=== PATIENT | female | born 1935 | race Caucasian/White ===

== ENCOUNTER → 2017-12-07 10:26 | Outpatient (CLI) | payer MEDICARE, SELFPAY ==
--- NOTE | 2017-12-07 10:29 | BI_ITS ---
MAMMOGRAPHY - BILATERAL SCREENING REASON FOR EXAM: Female, 82 years old. Routine annual screening examination. PERTINENT HISTORY: NO FAM HX CURRENT PREMARIN X 10 YRS+ NO SX TECHNIQUE: Digital bilateral breast reggie (3D mammographic acquisition) in the CC and MLO projections. 2-D mediolateral oblique (MLO) and craniocaudad (CC) views of both breasts were obtained. CAD: Full Field Digital Mammography with Computer Added Detection was performed. COMPARISON: None. FINDINGS: Breast Composition: There are scattered areas of fibroglandular density. There are no dominant masses or suspicious calcifications. No other significant abnormalities are identified. BI/SCREENING MAMM (CAD), BILAT IMPRESSION: Stable bilateral screening mammogram. Yearly follow-up mammogram recommended. (A) ASSESSMENT CATEGORY: BIRADS Category 2: Benign. A letter regarding these results will be sent to the patient by the facility within 30 days. Approximately 10% of breast cancers are not detected by mammography. A normal mammogram should not delay biopsy of a clinically suspicious abnormality. [id number] Electronically Signed: Madelaine Colin MD at 16:20 EDT Tel , Service support ,
== END ==
PROVIDERS: Family Provider Family Medicine; PCP Family Medicine; Visit Provider Family Medicine
DX: Z12.31 Encounter for screening mammogram for malignant neoplasm of breast (principal)
CPT/HCPCS: 77063; 77067

== ENCOUNTER → 2018-04-07 10:12 | Outpatient (CLI) | payer MEDICARE, SELFPAY ==
[2018-04-07 12:18] LABS: AST(SGOT) 627 U/L (15-37); Alanine Aminotransfer ALT/SGPT 724 U/L (13-56); Albumin, Serum 3.4 g/dL (3.2-5.0); Alkaline Phosphatase 247 U/L (45-117); Anion Gap 8 (5-15); BUN 23 mg/dL (7-18); BUN/Creat Ratio 25.6 RATIO (10-20); Basophil# 0.04 X10^3/uL; Basophil% 0.9 % (0-1); Calcium,Total 8.8 mg/dL (8.5-10.1); Chloride 106 mmol/L (98-107); EST Glomerular Filtration Rate 64 mL/min (>60); Eosinophil# 0.15 X10^3/uL; Eosinophils% 3.2 % (0-5); Est Glom Filt Rate - Afr Amer 78 mL/min (>60); Globulin 3.4 g/dL (2.2-4.2); Glucose 113 mg/dL (74-106); Hematocrit 39.6 % (37-47); Hemoglobin 13.1 g/dl (12.0-15.0); Lymphocyte % 38.7 % (19-41); Mean Corp Hgb Conc 33.1 g/gl (32-36); Mean Corpuscular Hgb 32.8 pg (27.0-32.0); Mean Platelet Vol. 10.3 fl (6.2-12.0); Monocyte# 0.66 X10^3/uL; Monocyte% 14.2 % (0-10); Platelet Count 191 K/mm3 (150-450); Potassium 3.7 mmol/L (3.5-5.1); Protein, Total 6.8 g/dL (6.4-8.2); RBC Distribution Width CV 13.3 % (11.6-14.6); Sodium Level 141 mmol/L (136-145); White Blood Count 4.7 K/mm3 (4.4-11.0)
[2018-04-07 12:20] LABS: POSITIVE COUNT NO; POSITIVE DIFFERENTIAL NO; POSITIVE MORPHOLOGY NO
[2018-04-07 12:31] LABS: International Normalized Ratio 1.1; Prothrombin Time (Protime)PT. 13.8 SECONDS (11.7-14.9)
[2018-04-11 13:20] LABS: ANTINUCLEAR ANTIBODIES DIRECT Negative (Negative)
== END ==
PROVIDERS: Family Provider Family Medicine; PCP Family Medicine; Visit Provider Family Medicine
DX: R74.8 Abnormal levels of other serum enzymes (principal); R10.9 Unspecified abdominal pain
CPT/HCPCS: 36415; 80053; 85025; 85610; 86038; 86225; 86235

== ENCOUNTER → 2018-04-14 10:58 | Outpatient (CLI) | payer MEDICARE, SELFPAY ==
[2018-04-14 14:08] LABS: AST(SGOT) 403 U/L (15-37); Alanine Aminotransfer ALT/SGPT 560 U/L (13-56); Albumin, Serum 3.3 g/dL (3.2-5.0); Alkaline Phosphatase 287 U/L (45-117); Anion Gap 8 (5-15); BUN 17 mg/dL (7-18); BUN/Creat Ratio 20.8 RATIO (10-20); Calcium,Total 8.9 mg/dL (8.5-10.1); Chloride 105 mmol/L (98-107); Creatinine, Serum 0.82 mg/dL (0.55-1.02); EST Glomerular Filtration Rate 71 mL/min (>60); Est Glom Filt Rate - Afr Amer 86 mL/min (>60); GGTP 538 U/L (5-55); Globulin 3.4 g/dL (2.2-4.2); Glucose 121 mg/dL (74-106); Lipase 153 U/L (73-393); Potassium 3.9 mmol/L (3.5-5.1); Protein, Total 6.7 g/dL (6.4-8.2); Sodium Level 143 mmol/L (136-145)
== END ==
PROVIDERS: Visit Provider Family Medicine
DX: R94.5 Abnormal results of liver function studies (principal); R10.9 Unspecified abdominal pain
CPT/HCPCS: 36415; 80053; 82977; 83690

== ENCOUNTER → 2018-04-19 09:28 | Outpatient (CLI) | payer MEDICARE, SELFPAY ==
--- NOTE | 2018-04-19 09:39 | US_ITS ---
STUDY: ABDOMINAL ULTRASOUND - RIGHT UPPER QUADRANT REASON FOR VISIT: Female, 82 years old. Elevated LFTs TECHNIQUE: Ultrasound evaluation of the right upper quadrant was performed with real-time and static kimball-scale imaging. TECHNICAL QUALITY: Limited. Examination limited by bowel gas. COMPARISON: None. FINDINGS: Liver: The liver measures 12.6 cm. There is normal echogenicity of the liver. The bile ducts are within normal limits. There is hepatic color flow. The direction of portal flow is hepatopetal. There is no demonstrated mass lesion. Gallbladder: Normal distended gallbladder. The gallbladder wall measures 2.6 mm. There is a negative sonographic Ortiz's sign. There is no pericholecystic fluid. There is biliary sludge dependent within the gallbladder. Common Bile Duct (C.B.D.): The common bile duct measures 3.7 mm. Pancreas: Visualized pancreas is sonographically normal Right Kidney: Normal size of the right kidney. The right kidney measures 8.8 x 4.8 x 3.5 cm. Normal renal cortex. The right cortex measures 1.2 cm. There is a 8 mm simple cyst. There is no right hydronephrosis. US/Liver IMPRESSION: Gallbladder sludge, no sonographic evidence of cholecystitis. Simple right renal cyst Sonographically normal liver Electronically Signed: Edmundo Kenney MD at 16:49 EDT , Service support ,
== END ==
PROVIDERS: Family Provider Family Medicine; PCP Family Medicine; Visit Provider Family Medicine
DX: R10.9 Unspecified abdominal pain (principal); R94.5 Abnormal results of liver function studies
CPT/HCPCS: 76705

== ENCOUNTER → 2018-04-27 10:42 | Outpatient (CLI) | payer MEDICARE, SELFPAY ==
[2018-04-27 12:25] LABS: ALB/GLOB Ratio 0.9 RATIO (0.9-2.4); AST(SGOT) 47 U/L (15-37); Alanine Aminotransfer ALT/SGPT 77 U/L (13-56); Albumin, Serum 3.3 g/dL (3.2-5.0); Alkaline Phosphatase 176 U/L (45-117); Anion Gap 8 (5-15); BUN 21 mg/dL (7-18); BUN/Creat Ratio 22.6 RATIO (10-20); Calcium,Total 8.9 mg/dL (8.5-10.1); Chloride 104 mmol/L (98-107); Creatinine, Serum 0.93 mg/dL (0.55-1.02); EST Glomerular Filtration Rate 62 mL/min (>60); Est Glom Filt Rate - Afr Amer 74 mL/min (>60); Globulin 3.7 g/dL (2.2-4.2); Glucose 139 mg/dL (74-106); Potassium 3.8 mmol/L (3.5-5.1); Sodium Level 141 mmol/L (136-145)
== END ==
PROVIDERS: Family Provider Family Medicine; PCP Family Medicine; Visit Provider Family Medicine
DX: R74.8 Abnormal levels of other serum enzymes (principal); R94.5 Abnormal results of liver function studies
CPT/HCPCS: 36415; 80053

== ENCOUNTER → 2018-05-05 08:28 | Outpatient (CLI) | payer MEDICARE, SELFPAY ==
[2018-05-05 10:29] LABS: Cholesterol 248 mg/dL (200); Ferritin 75 ng/mL (8-252); High Density Lipoprotein 47 mg/dL; T4 Total, Thyroxin 12.5 ug/dL (4.8-13.9); Thyroid Stim Hormone (TSH) 1.56 uIU/mL (0.358-3.74); Triglycerides 103 mg/dL; Very Low Density Lipoprotein 21 mg/dL (5-40)
[2018-05-06 16:08] LABS: Ceruloplasmin 24.8 mg/dL (19.0-39.0)
[2018-05-07 07:50] LABS: AFP, Tumor Marker 4.5 ng/mL (0.0-8.3); Alpha Antitrypsin Serum 157 mg/dL (90-200); Anti-Mitochondrial AB <20.0 Units (0.0-20.0); Anti-Smooth Muscle ABS 27 Units (0-19); EBV Acute VCA IgM < 36.0 U/mL (0.0-35.9); Hep C Antibodies <0.1 s/co ratio (0.0-0.9); Immunoglobulin A 346 mg/dL (64-422); t-Transglutaminase IgA <2 U/mL (0-3)
== END ==
PROVIDERS: Family Provider Family Medicine; PCP Family Medicine
DX: R74.0 Nonspecific elevation of levels of transaminase and lactic acid dehydrogenase [LDH] (principal); R74.8 Abnormal levels of other serum enzymes; I48.91 Unspecified atrial fibrillation; E78.2 Mixed hyperlipidemia
CPT/HCPCS: 36415; 80061; 82103; 82105; 82390; 82728; 82784; 83516; 84436; 84443; 86665; 86803

== ENCOUNTER → 2018-05-12 10:44 | Outpatient (CLI) | payer MEDICARE, SELFPAY ==
[2018-05-12 12:58] LABS: AST(SGOT) 28 U/L (15-37); Alanine Aminotransfer ALT/SGPT 25 U/L (13-56); Albumin, Serum 3.1 g/dL (3.2-5.0); Alkaline Phosphatase 115 U/L (45-117); Globulin 3.5 g/dL (2.2-4.2); Protein, Total 6.6 g/dL (6.4-8.2)
== END ==
PROVIDERS: Family Provider Family Medicine; PCP Family Medicine
DX: R74.8 Abnormal levels of other serum enzymes (principal)
CPT/HCPCS: 80076

== ENCOUNTER → 2018-09-15 12:35 | Outpatient (CLI) | payer MEDICARE, SELFPAY ==
[2018-09-15 12:18] VITALS: BMI 28.2
--- NOTE | 2018-09-15 12:41 | RAD_ITS ---
STUDY: X-RAY CHEST REASON FOR EXAM: Female, 83 years old. Cough. TECHNIQUE: PA and lateral views of the chest. COMPARISON: Comparison is made with prior study dated April 24, 2014. FINDINGS: The lungs are clear and expanded. There is no demonstrated pleural abnormality. There is calcification of the mitral valve annulus. Normal mediastinum and henrique. Normal visualized pulmonary arteries. There is atherosclerotic calcification of the aortic arch with tortuosity. There is demineralization of the osseous structures. Healed right rib fractures. There is no demonstrated abnormality of the visualized soft tissue structures of the upper abdomen. RAD/Chest PA and Lateral IMPRESSION: No acute abnormality is seen. Electronically Signed: Solo Wilburn MD at 13:09 EST , Service support ,
== END ==
PROVIDERS: Family Provider Family Medicine; PCP Family Medicine; Referring Provider Physician Assistant; Visit Provider Physician Assistant
DX: R05 Cough (principal)
CPT/HCPCS: 71046

== ENCOUNTER → 2018-11-30 10:04 | Outpatient (CLI) | payer MEDICARE, SELFPAY ==
[2018-11-29 13:32] VITALS: BMI 29.8
[2018-11-30 10:55] LABS: AST(SGOT) 22 U/L (15-37); Alanine Aminotransfer ALT/SGPT 20 U/L (13-56); Albumin, Serum 3.7 g/dL (3.2-5.0); Alkaline Phosphatase 87 U/L (45-117); Bilirubin, Direct 0.13 mg/dL (0.00-0.30); Cholesterol 263 mg/dL (200); Globulin 3.6 g/dL (2.2-4.2); High Density Lipoprotein 45 mg/dL; Protein, Total 7.3 g/dL (6.4-8.2); Triglycerides 180 mg/dL; Very Low Density Lipoprotein 36 mg/dL (5-40)
== END ==
PROVIDERS: Family Provider Family Medicine; PCP Family Medicine; Referring Provider Internal Medicine Cardiovascular Disease; Visit Provider Internal Medicine Cardiovascular Disease
DX: I25.10 Atherosclerotic heart disease of native coronary artery without angina pectoris (principal)
CPT/HCPCS: 36415; 80061; 80076

== ENCOUNTER → 2018-12-14 13:35 | Outpatient (CLI) | payer MEDICARE, SELFPAY ==
[2018-11-29 13:32] VITALS: BMI 29.8
--- NOTE | 2018-12-14 13:37 | ECHOCS_ITS ---
Reason For Study: CAD/ASHD Procedure This was a 2D Doppler, Color Flow transthoracic echocardiogram. Contrast injection was performed. Exam performed in department. Left Ventricle Normal size and thickness. The estimated ejection fraction is 75 %. Stage 1 diastolic dysfunction. No regional wall motion abnormalities noted. Right Ventricle Normal size and thickness. Normal systolic function. Atria The left atrium is moderately enlarged. Normal right atrium. Normal atrial septum. Bubble contrast study negative for right to left interatrial shunt. Mitral Valve Mild diffuse mitral valve thickening. Severe mitral annular calcification extending into the posterior leaflet. Mild mitral valve stenosis. Trivial mitral valve insufficiency. Tricuspid Valve Normal tricuspid valve. Mild (1+) tricuspid valve insufficiency. Right ventricular systolic pressure estimated to be 37 mmHg. Mild pulmonary hypertension. Aortic Valve Trisinus/trileaflet aortic valve. Moderate diffuse aortic valve thickening. Mild restriction of the aortic valve. Mild aortic stenosis. Trivial aortic valve insufficiency. Pulmonic Valve Normal pulmonic valve. Trivial pulmonic valve insufficiency. Great Vessels Normal aortic root. Normal arch. Normal inferior vena cava. Inferior vena cava collapse with sniff. Pericardium/Pleural No pericardial effusion. Medication 22 gauge I.V. with prn adaptor inserted into right arm. Diluted definity 3ml given slow IV push to enhance endocardial definition. Performed a rapid injection of agitated mix of 9 cc saline and 1cc air to assess for atrial septal defect. MMode/2D Measurements & Calculations LVIDd: 4.1 cm IVSd: 1.0 cm LVOT diam: 2.0 cm LVIDs: 2.9 cm LVPWd: 1.1 cm RVDd: 3.5 cm FS: 29.3 % LVOT area: 3.2 cm2 LAV(MOD-bp): 76.5 ml LVAd ap4: 29.8 cm2 SV(MOD-sp4): 55.2 ml LAV(MOD-bp) Indexed: 39.6 ml/m2 EDV(MOD-sp4): 93.7 ml LAV(MOD-sp2): 74.5 ml EDV(sp4-el): 96.7 ml LAV(MOD-sp4): 79.3 ml LVAs ap4: 17.0 cm2 ESV(MOD-sp4): 38.6 ml ESV(sp4-el): 38.0 ml EF(MOD-sp4): 58.9 % EF(sp4-el): 60.7 % SV(sp4-el): 58.7 ml LA A4 area: 24.1 cm2 RA A4 area: 13.3 cm2 Time Measurements MV dec time: 0.27 sec Doppler Measurements & Calculations MV E max vinicius: 110.5 cm/sec Lat Peak E' Vinicius: 7.4 cm/sec Med Peak E' Vinicius: 3.5 cm/sec MV A max vinicius: 108.4 cm/sec E/E' lat: 14.9 E/E' med: 31.7 MV E/A: 1.0 MV V2 max: 124.1 cm/sec MV P1/2t max vinicius: 115.6 cm/sec Ao V2 max: 193.0 cm/sec MV max P.2 mmHg MV P1/2t: 94.7 msec Ao max P.9 mmHg MV V2 mean: 77.1 cm/sec Ao V2 mean: 129.7 cm/sec MV mean P.7 mmHg MV dec slope: 357.3 cm/sec2 Ao mean P.6 mmHg MV V2 VTI: 36.9 cm MVA(P1/2t): 2.3 cm2 Ao V2 VTI: 42.3 cm MVA(VTI): 1.9 cm2 SHAI(I,D): 1.7 cm2 SHAI(V,D): 1.7 cm2 AI max vinicius: 437.9 cm/sec LV V1 max: 100.5 cm/sec SV(LVOT): 70.2 ml AI max P.8 mmHg LV V1 max P.0 mmHg AI dec slope: 241.7 cm/sec2 LV V1 mean P.9 mmHg AI P1/2t: 530.7 msec LV V1 mean: 63.1 cm/sec LV V1 VTI: 22.1 cm PA V2 max: 117.7 cm/sec TR max vinicius: 280.4 cm/sec TR max P.5 mmHg Interpretation Summary The estimated ejection fraction is 75 %. Stage 1 diastolic dysfunction. The left atrium is moderately enlarged. Bubble contrast study negative for right to left interatrial shunt. Mild mitral valve stenosis. Mild (1+) tricuspid valve insufficiency. Right ventricular systolic pressure estimated to be 37 mmHg. Mild pulmonary hypertension. Mild aortic stenosis. The study was technically difficult. There is no comparison study available. Contrast injection was performed. Ordering Physician: Keyon Jama Referring Physician: Keyon Jama Performed By: [facility]
== END ==
PROVIDERS: Family Provider Family Medicine; PCP Family Medicine; Referring Provider Internal Medicine Cardiovascular Disease; Visit Provider Internal Medicine Cardiovascular Disease
DX: I48.0 Paroxysmal atrial fibrillation (principal)
CPT/HCPCS: 93306; Q9957; A4216; C8929

== ENCOUNTER → 2018-12-21 09:15 | Outpatient (CLI) | payer MEDICARE, SELFPAY ==
[2018-11-29 13:32] VITALS: BMI 29.8
--- NOTE | 2018-12-21 09:20 | STEWCON_ITS ---
Reason For Study: ATRIAL FIB/FLUTTER Stress Results Protocol: Dobutamine with definity Maximum Predicted HR: 139 bpm Target HR: 118 bpm % Maximum Predicted HR: 86 % Heart Stage Duration Rate BP Comment (mm:ss) (bpm) 2.5CC DEFINITY/ 0.4 MG NITRO X1 GIVEN FOR ELEVATED BP BASELINE 81 177/88(205/104) . RECHECK BP OF 177/88 DOBUTAMINE 10 MCG 3:00 73 173/991.5CC DEFINITY DOBUTAMINE 20 MCG 3:00 84 162/72 DOBUTAMINE 30 MCG 3:00 107 178/66 DOBUTAMINE 40 MCG 2:28 120 160/74 RECOVERY 90 171/741CC DEFINITY Stress Duration: 11:28 mm:ss Maximum Stress HR: 120 bpm Baseline Echocardiogram Findings The estimated ejection fraction is 65 %. Stress Echo Wall motion Data Resting WM Intermediate WM Stress WM Resting Wall Motion Wall Motion Stress No regional wall motion No regional wall motion abnormalities noted. abnormalities noted. EKG Data Normal intervals are noted. The patient was titrated from 10 mcg to a maximum of 40 mcg of dobutamine during the stress. The maximum heart rate attained was 122 beats per minute. This was 87% of maximum predicted heart rate. During dobutamine infusion, there were no ST or T wave changes noted to suggest ischemia. No clinical angina was noted. Interpretation Summary The estimated ejection fraction is 65 %. Normal, adequate, dobutamine echocardiogram. Negative for ischemia by EKG and echocardiographic criteria. No anginal symptoms noted. Moderate PVCs noted which is nonspecific finding given dobutamine infusion. Appropriate blood pressure response to dobutamine. Patient did present severely hypertensive with a blood pressure of 202/82 requiring a single sublingual nitroglycerin which returned her blood pressure into the 170s. Final LVEF is 75%. Decreased sensitivity due to poor echo windows requiring Definity agent. No complications. Test terminated due to the attainment of target heart rate. The study was technically difficult. Contrast injection was performed. Ordering Physician: Keyon Jama Referring Physician: Keyon Jama Performed By: Stephanie Marie RDCS
== END ==
PROVIDERS: Family Provider Family Medicine; PCP Family Medicine; Referring Provider Internal Medicine Cardiovascular Disease; Visit Provider Internal Medicine Cardiovascular Disease
DX: I48.0 Paroxysmal atrial fibrillation (principal); I25.10 Atherosclerotic heart disease of native coronary artery without angina pectoris; E78.5 Hyperlipidemia, unspecified; Z86.79 Personal history of other diseases of the circulatory system; Z98.890 Other specified postprocedural states
CPT/HCPCS: 93017; 93350; J7040; Q9957; A4216; C8928

== ENCOUNTER → 2019-04-17 09:16 | Outpatient (CLI) | payer MEDICARE, SELFPAY ==
[2019-04-14 11:12] VITALS: BMI 29.3
[2019-04-17 10:27] LABS: Anion Gap 6 (5-15); BUN 25 mg/dL (7-18); Calcium,Total 9.2 mg/dL (8.5-10.1); Chloride 108 mmol/L (98-107); Creatinine, Serum 0.89 mg/dL (0.55-1.02); EST Glomerular Filtration Rate 64 mL/min (>60); Est Glom Filt Rate - Afr Amer 78 mL/min (>60); Glucose 103 mg/dL (74-106); Potassium 4.2 mmol/L (3.5-5.1); Sodium Level 142 mmol/L (136-145)
== END ==
PROVIDERS: Family Provider Family Medicine; PCP Family Medicine; Referring Provider Internal Medicine Cardiovascular Disease; Visit Provider Internal Medicine Cardiovascular Disease
DX: I10 Essential (primary) hypertension (principal)
CPT/HCPCS: 36415; 80048

== ENCOUNTER → 2019-06-01 09:39 | Outpatient (CLI) | payer MEDICARE, SELFPAY ==
[2019-04-14 11:12] VITALS: BMI 29.3
[2019-06-01 11:07] LABS: AST(SGOT) 20 U/L (15-37); Alanine Aminotransfer ALT/SGPT 19 U/L (13-56); Alkaline Phosphatase 91 U/L (45-117); Bilirubin, Direct 0.15 mg/dL (0.00-0.30); Cholesterol 217 mg/dL (200); Globulin 3.7 g/dL (2.2-4.2); High Density Lipoprotein 62 mg/dL; Protein, Total 7.7 g/dL (6.4-8.2); Triglycerides 62 mg/dL; Very Low Density Lipoprotein 12 mg/dL (5-40)
== END ==
PROVIDERS: Family Provider Family Medicine; PCP Family Medicine; Referring Provider Internal Medicine Cardiovascular Disease; Visit Provider Internal Medicine Cardiovascular Disease
DX: E78.5 Hyperlipidemia, unspecified (principal); I25.10 Atherosclerotic heart disease of native coronary artery without angina pectoris
CPT/HCPCS: 36415; 80061; 80076

== ENCOUNTER 2019-07-06 14:06 | Emergency (ER) | payer MEDICARE, SELFPAY ==
[2019-04-14 11:12] VITALS: BMI 29.3
[2019-07-06] VITALS (9 sets, daily range): BP systolic 125–150; BP diastolic 53–73; PULSE 67–77; RESP 14–16; TEMP 36.8; O2SAT 96–98; BMI 29.5
--- NOTE | 2019-07-06 14:08 | RAD_ITS ---
STUDY: X-RAY CHEST REASON FOR EXAM: Female, 83 years old. TECHNIQUE: 1 view COMPARISON: September 15, 2018 FINDINGS: There is focal area of atelectasis or limited infiltrate in the left lower lobe behind the heart. Heavy markings seen in the medial aspect of the right base as well, the rest of the lung montelongo and costophrenic angles are clear. The trachea is in the midline There is mild scoliosis of the thoracolumbar junction convexity to the right side. The bony thorax is intact. The shoulders are unremarkable. . RAD/Chest 1 View IMPRESSION: Limited area of infiltrate or atelectasis left lower lobe behind the heart for follow-up, heavy markings medial aspect of the right base. Electronically Signed: Marcello Shah, at 15:20 EST Tel , Service support ,
--- NOTE | 2019-07-06 14:08 | EKG12_ITS ---
Test Reason : STROKE Blood Pressure : / mmHG Vent. Rate : 067 BPM Atrial Rate : 067 BPM P-R Int : 270 ms QRS Dur : 124 ms QT Int : 444 ms P-R-T Axes : 057 -05 076 degrees QTc Int : 469 ms Sinus rhythm with 1st degree A-V block with frequent Premature ventricular complexes Septal infarct , age undetermined Abnormal ECG Confirmed by TORIE FELICIANO MD ([id number]), department editor FRANCISCO CHAMBERS ([id number]) on 07/10/2019 11:55:05 AM Referred By: ELIZA Confirmed By:TORIE FELICIANO MD
--- NOTE | 2019-07-06 14:08 | CT_ITS ---
We are attempting to reach an attending provider to discuss findings. An addendum with communication details will be sent when the communication is complete. STUDY: CT BRAIN WITHOUT CONTRAST REASON FOR EXAM: Female, 83 years old. RADIATION DOSAGE (If Supplied By Facility): CTDIvol = ( 44.99 ) mGy, DLP = ( 745.49 ) mGycm TECHNIQUE: Transaxial CT imaging of the brain was performed without administration of intravenous contrast material. Individualized dose optimization techniques were used for this CT. COMPARISON: No relevant priors. FINDINGS: The ventricular system is within normal limits. There are periventricular lucencies which represent deep white matter ischemic changes.. There is a an area of infarction involving a adjacent of the head of the caudate nucleus on the right side. Also noted is area of lucency in the insular cortex on the left side that also could be ischemic in nature. No evidence of epidural, subdural or intraparenchymal hematoma. The skull base and cranial vault are intact. The sinuses and orbits are unremarkable except for scleral calcifications bilaterally. CT/Brain/Head without Contrast IMPRESSION: Evidence of lucency adjacent of the head of the caudate nucleus on the right side could represent acute infarction. Area of lucency in the insular cortex on the left which is ischemic in nature. Deep white matter ischemic changes Electronically Signed: Marcello Shah, at 14:42 EST Tel , Service support ,
--- NOTE | 2019-07-06 14:09 | CT_ITS ---
STUDY: CTA HEAD AND NECK WITH CONTRAST REASON FOR EXAM: Female, 83 years old. RADIATION DOSAGE (If Supplied By Facility): CTDIvol = ( 22.43 ) mGy, DLP = ( 748.3 ) mGycm TECHNIQUE: CT angiography was performed with a multi-detector CT scanner. Data acquisition was obtained from the skull base through the vertex following intravenous administration of IV Isovue 370 100. MIP images were reconstructed from the axial data set. Post-processing of the angiographic images was performed, with multiplanar reformation and 3D reconstruction. Individualized dose optimization techniques were used for this CT. COMPARISON: No relevant priors. FINDINGS: Normal bilateral petrous carotid arteries. Normal right cavernous carotid artery with a normal supraclinoid bifurcation. Normal left cavernous carotid artery with a normal supraclinoid bifurcation. Normal right A1 segments of the anterior cerebral artery. Normal left A1 segments of the anterior cerebral artery. Normal intact anterior communicating artery (ACOM). Normal bilateral A2 segments of the anterior cerebral arteries. Normal right M1 and M2 segments of the middle cerebral arteries, with a normal M1 bifurcation. Normal left M1 and M2 segments of the middle cerebral arteries, with a normal M1 bifurcation. Normal right posterior communicating artery (PCOM). Normal left posterior communicating artery (PCOM). Normal bilateral vertebral arteries. Normal basilar artery with a normal basilar bifurcation. The visualized bilateral superior cerebellar (SCA) arteries are normal. Normal bilateral P1, P2 and visualized P3 segments of the posterior cerebral arteries. There is no demonstrated aneurysm of the [place] of [place]. There is no demonstrated abnormality of the visualized brain. AORTIC ARCH: Normal visualized aortic arch. Normal origins of the brachiocephalic, left common carotid, and left subclavian arteries. RIGHT CAROTID ARTERIES: Normal right common carotid artery (CCA). Normal right common carotid bulb. Normal origin of the right internal carotid (ICA) artery without a hemodynamically significant stenosis. Normal visualized cervical portion of the right internal carotid artery. Normal origin of the right external carotid artery (ECA). LEFT CAROTID ARTERIES: Normal left common carotid artery (CCA). Normal left common carotid bulb. Normal origin of the left internal carotid (ICA) artery without a hemodynamically significant stenosis. Normal visualized cervical portion of the left internal carotid artery. Normal origin of the left external carotid artery (ECA). VERTEBRAL ARTERIES: Normal bilateral vertebral arteries. CT/CTA Head AND Neck W/ Contrast IMPRESSION: Normal CTA Head and neck with contrast. Electronically Signed: Marcello Shah, at 14:46 EST Tel , Service support ,
[2019-07-06 14:36] LABS: Absolute Lymphocyte Count 1.49 X10^3/uL (0.83-4.51); Absolute Neutrophil Count 2.6 X10^3/uL (2.0-7.7); Basophil# 0.03 X10^3/uL; Basophil% 0.6 % (0-1); Eosinophil# 0.03 X10^3/uL; Eosinophils% 0.6 % (0-5); Hematocrit 31.1 % (37-47); Hemoglobin 10.4 g/dL (12.0-15.0); Lymphocyte # 1.49 X10^3/ul (4.0); Lymphocyte % 28.9 % (19-41); Mean Corp Hgb Conc 33.4 g/dL (32-36); Mean Corpuscular Hgb 32.8 pg (27.0-32.0); Mean Corpuscular Volume 98.1 fL (81-99); Mean Platelet Vol. 9.4 fl (6.2-12.0); Monocyte# 0.97 X10^3/uL; Monocyte% 18.8 % (0-10); NRBC Flagged by Analyzer 0 % (0-5); Neutrophil # 2.63 X10^3/uL (2.7-7.7); Neutrophil % 50.9 % (47-70); Platelet Count 168 K/mm3 (150-450); RBC Distribution Width CV 12.8 % (11.6-14.6); RBC Distribution Width SD 46.1 fl (35.1-43.9); Red Blood Count 3.17 M/mm3 (4.2-5.4); White Blood Count 5.2 K/mm3 (4.4-11.0)
[2019-07-06 14:41] LABS: International Normalized Ratio 1.3; Partial Thromboplast Time 28.1 Seconds (24.1-36.2); Prothrombin Time (Protime)PT. 15.8 SECONDS (11.7-14.9)
[2019-07-06 14:50] LABS: Anion Gap 7 (5-15); BUN 34 mg/dL (7-18); BUN/Creat Ratio 29.6 RATIO (10-20); Calcium,Total 8.1 mg/dL (8.5-10.1); Chloride 102 mmol/L (98-107); Creatinine, Serum 1.15 mg/dL (0.55-1.02); EST Glomerular Filtration Rate 48 mL/min (>60); Est Glom Filt Rate - Afr Amer 58 mL/min (>60); Estimated Creatinine Clearance 35.92 ml/min; Glucose 156 mg/dL (74-106); Potassium 3.5 mmol/L (3.5-5.1); Sodium Level 137 mmol/L (136-145)
--- NOTE | 2019-07-06 15:14 | ED.DCSUM_ITS ---
- ER Visit Summary Date of Service: 07/06/19 Chief Complaint: Unresponsive episode History of Present Illness: The patient is a [address] Serrato and Dr. Jama. She was sitting at the dinner table having Thanksgiving dinner with family when at 130 this afternoon they looked over and she was unresponsive. She was sweaty and clammy, but had a pulse when they felt for this. They called EMS. Upon EMS arrival the patient was lethargic with left-sided weakness and a left facial droop. Her blood sugar was 192. Upon arrival to the emergency department the patient complains of generalized weakness. She denies any chest pain or palpitations. No abdominal pain, nausea, vomiting, or diarrhea. She denies shortness of breath. She denies headache. Physical Examination: Vitals: Stable. Afebrile. General: Well-nourished and well-developed. Head: Normocephalic atraumatic. Neck: Supple, no lymphadenopathy. No JVD. Nontender. Cardiovascular: Irregular rhythm with a 2 out of 6 systolic murmur. Respiratory: No respiratory distress. Clear to auscultation bilaterally. Abdominal: Soft, nontender, nondistended, normal bowel sounds. No guarding, rebound, or peritoneal signs. Back: Nontender. Extremities: Nontender, no edema. Skin: Normal color, no rash. Neurologic: Alert and oriented ?3. Cranial nerves II through XII are intact. Normal strength and sensation. NIH scale is 0. Psych: Normal affect. Test Results: EKG is sinus with a first-degree AV block rate of 67 and PVCs. CBC shows an H&H 10.4 31.1. Monocytes 19. Chem-7 shows BUN 34, creatinine 1.15, glucose 156, calcium 8.1. INR is 1.3. PTT is 20.1. Troponin is negative. Chest x-ray is severely rotated and shows cardiomegaly. CTA head and neck is normal. CT head shows an area of infarction adjacent to the head of the caudate nucleus on the right. There is also an area of lucency in the insular cortex on the left that could be ischemic. Emergency Department Course and Treatment: Patient was seen immediately upon arrival to the emergency department and went to CT on the EMS cot. Her NIH scale is 0. She is not a TPA candidate. She was discussed with the neurologist from [facility] was done to examine her as well and agrees with this. During her stay here the patient became much more awake and alert. She is resting comfortably. She has no history of seizures. Family did not witness any seizure activity. Treatment Plan: As we do not have neurology here. The patient will be transferred to [facility], her hospital of choice, for further evaluation and treatment. Disposition: Transferred in improved condition. Impression: 1. Unresponsive episode. 2. 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 4. Critical care time 33 minutes. This note was generated with [employer] dictation software. It may contain incorrect words, spelling, and punctuation that were not noted in review of the chart prior to signing ED Disposition - Plan for ED Patient: Referrals: Robyn Serrato DO [Primary Care Provider] -
== END 2019-07-06 17:07 | disposition short-term general hospital (02) ==
LOC: ED 14:11
PROVIDERS: Emergency Medicine; Emergency Provider Emergency Medicine; Family Provider Family Medicine; PCP Family Medicine
DX: I63.81 Other cerebral infarction due to occlusion or stenosis of small artery (principal); I10 Essential (primary) hypertension; I48.0 Paroxysmal atrial fibrillation; E78.00 Pure hypercholesterolemia, unspecified; I44.0 Atrioventricular block, first degree; I51.7 Cardiomegaly
CPT/HCPCS: 70450; 70496; 70498; 71045; 80048; 84484; 85025; 85610; 85730; 93005; 99251; 99285; Q9967; G0463

== ENCOUNTER → 2019-07-17 14:02 | Outpatient (CLI) | payer MEDICARE, SELFPAY ==
[2019-07-06 14:29] VITALS: BMI 29.5
[2019-07-17 14:25] LABS: Absolute Lymphocyte Count 1.59 X10^3/uL (0.83-4.51); Absolute Neutrophil Count 4.1 X10^3/uL (2.0-7.7); Basophil# 0.04 X10^3/uL; Basophil% 0.6 % (0-1); Eosinophil# 0.07 X10^3/uL; Eosinophils% 1.1 % (0-5); Hematocrit 40.4 % (37-47); Hemoglobin 12.9 g/dL (12.0-15.0); Lymphocyte # 1.59 X10^3/ul (4.0); Lymphocyte % 24.2 % (19-41); Mean Corp Hgb Conc 31.9 g/dL (32-36); Mean Corpuscular Hgb 32.8 pg (27.0-32.0); Mean Corpuscular Volume 102.8 fL (81-99); Mean Platelet Vol. 9.7 fl (6.2-12.0); Monocyte# 0.73 X10^3/uL; Monocyte% 11.1 % (0-10); NRBC Flagged by Analyzer 0 % (0-5); Neutrophil # 4.12 X10^3/uL (2.7-7.7); Neutrophil % 62.5 % (47-70); Platelet Count 255 K/mm3 (150-450); RBC Distribution Width CV 12.7 % (11.6-14.6); RBC Distribution Width SD 47.9 fl (35.1-43.9); Red Blood Count 3.93 M/mm3 (4.2-5.4); White Blood Count 6.6 K/mm3 (4.4-11.0)
[2019-07-17 14:41] LABS: ALB/GLOB Ratio 1.2 RATIO (0.9-2.4); AST(SGOT) 20 U/L (15-37); Alanine Aminotransfer ALT/SGPT 20 U/L (13-56); Albumin, Serum 3.7 g/dL (3.2-5.0); Alkaline Phosphatase 95 U/L (45-117); Anion Gap 9 (5-15); BUN 35 mg/dL (7-18); BUN/Creat Ratio 26.3 RATIO (10-20); Calcium,Total 9.3 mg/dL (8.5-10.1); Chloride 108 mmol/L (98-107); Creatinine, Serum 1.33 mg/dL (0.55-1.02); EST Glomerular Filtration Rate 41 mL/min (>60); Est Glom Filt Rate - Afr Amer 49 mL/min (>60); Globulin 3.1 g/dL (2.2-4.2); Glucose 165 mg/dL (74-106); Protein, Total 6.8 g/dL (6.4-8.2); Sodium Level 142 mmol/L (136-145)
[2019-07-17 14:43] LABS: D-Dimer Quantitative (DVT/PE) 1.21 FEU/ug/m (0.27-0.49)
== END ==
PROVIDERS: Family Provider Family Medicine; PCP Family Medicine; Visit Provider Family Medicine
DX: R53.83 Other fatigue (principal); R53.1 Weakness; R06.00 Dyspnea, unspecified
CPT/HCPCS: 36415; 80053; 85025; 85379

== ENCOUNTER → 2019-07-17 16:02 | Outpatient (CLI) | payer MEDICARE, SELFPAY ==
[2019-07-06 14:29] VITALS: BMI 29.5
--- NOTE | 2019-07-17 16:04 | CT_ITS ---
STUDY: CTA CHEST REASON FOR EXAM: Female, 83 years old. Dyspnea and elevated d-dimer RADIATION DOSAGE (If Supplied By Facility): CTDIvol = ( 8.99 ) mGy, DLP = ( 353.13 ) mGycm TECHNIQUE: The examination was performed with the intravenous administration of 100ML ISOVUE 370. Post-processing of the angiographic images was performed, with multiplanar reformation and 3D reconstruction. Individualized dose optimization techniques were used for this CT. COMPARISON: None. FINDINGS: Normal enhancement of the main pulmonary artery and right and left pulmonary arteries. Normal enhancement of the bilateral peripheral pulmonary arteries. There is no demonstrated pulmonary embolism. Atherosclerotic changes of the aorta without evidence for aneurysm There is no demonstrated aortic dissection. Heart is enlarged and there is multifocal coronary artery calcification There is dense calcification of the mitral annulus Normal mediastinum. Normal hilar regions. Normal visualized trachea and bronchi. The lungs are well expanded. There is nonspecific diffuse interstitial thickening present. There is minor atelectasis within the dependent portion of the lungs. Normal pleura. Normal chest wall structures. Dorsal spine demonstrates moderate spondylosis Small hiatal hernia is demonstrated. Normal visualized upper abdomen. CT/CTA Chest W/WO Contrast IMPRESSION: COPD and ASHD. No acute cardiopulmonary pathology. Electronically Signed: Chuckie Flores MD at 16:52 EST , Service support ,
== END ==
PROVIDERS: Family Provider Family Medicine; PCP Family Medicine; Referring Provider Family Medicine; Visit Provider Family Medicine
DX: R06.00 Dyspnea, unspecified (principal); R79.89 Other specified abnormal findings of blood chemistry
CPT/HCPCS: 36415; 71275; 80053; 85025; 85379; Q9967

== ENCOUNTER → 2019-08-15 13:05 | Outpatient (CLI) | payer MEDICARE, SELFPAY ==
[2019-07-06 14:29] VITALS: BMI 29.5
--- NOTE | 2019-08-15 13:08 | CT_ITS ---
STUDY: CT BRAIN WITH AND WITHOUT CONTRAST REASON FOR EXAM: Female, 83 years old. CVA, DIZZINESS, COLLAPSED ON 07/06, CHECK UP FROM PREV SCANS DONE ON 07/06 AND 07/17, RECENT LOOP RECORDER PUT IN AND HX-HTN RADIATION DOSAGE (If Supplied By Facility): CTDIvol = ( 44.99 ) mGy, DLP = ( 1479.73 ) mGycm TECHNIQUE: Transaxial CT imaging of the brain was performed pre and post contrast administration. The examination was performed with intravenous administration of 50ML ISOVUE 370. Individualized dose optimization techniques were used for this CT. COMPARISON: 07/06/2019, 09/05/2010 FINDINGS: Normal soft tissue structures. Normal calvarium. There is mild cerebral atrophy with widening of the extra-axial spaces and ventricular dilatation. There are areas of decreased attenuation within the white matter tracts of the supratentorial brain, consistent with microvascular disease changes. Localized area of diminished density of the right basal ganglia and caudate head stable since the prior study compatible with an old lacunar infarction. Localized decreased density of the left subinsular white matter is also stable. Normal brainstem. Normal cerebellum. No abnormal contrast enhancement. There is no intracranial hemorrhage. There are no findings of an acute ischemic infarction. Normal visualized paranasal sinuses. CT/Brain/Head W/WO Contrast IMPRESSION: 1. Since 07/06/2019, stable exam. 2. Right basal ganglia/caudate head lacunar infarction, stable since 2010. 3. Left subinsular white matter lacunar infarction, stable since 06/28/2019 (new since 2010). 4. No abnormal contrast enhancement. 5. Central parenchymal volume loss. White matter changes that are nonspecific but most commonly associated with chronic small vessel ischemic disease. Electronically Signed: Anant Perez MD ([place]) at 8:11 EST , Service support ,
== END ==
PROVIDERS: Family Provider Family Medicine; PCP Family Medicine; Referring Provider Family Medicine; Visit Provider Family Medicine
DX: R42 Dizziness and giddiness (principal); Z86.73 Personal history of transient ischemic attack (TIA), and cerebral infarction without residual deficits
CPT/HCPCS: 70470; Q9967

== ENCOUNTER → 2020-02-13 08:56 | Outpatient (CLI) | payer MEDICARE, SELFPAY ==
[2020-02-13 10:04] LABS: AST(SGOT) 18 U/L (15-37); Alanine Aminotransfer ALT/SGPT 15 U/L (13-56); Albumin, Serum 3.8 g/dL (3.2-5.0); Alkaline Phosphatase 113 U/L (45-117); Anion Gap 6 (5-15); BUN 38 mg/dL (7-18); BUN/Creat Ratio 38.7 RATIO (10-20); Bilirubin, Direct 0.15 mg/dL (0.00-0.30); Calcium,Total 9.4 mg/dL (8.5-10.1); Chloride 108 mmol/L (98-107); Cholesterol 205 mg/dL (200); Creatinine, Serum 0.98 mg/dL (0.55-1.02); EST Glomerular Filtration Rate 58 mL/min (>60); Est Glom Filt Rate - Afr Amer 70 mL/min (>60); Globulin 3.9 g/dL (2.2-4.2); Glucose 120 mg/dL (74-106); High Density Lipoprotein 49 mg/dL; Potassium 4.2 mmol/L (3.5-5.1); Protein, Total 7.7 g/dL (6.4-8.2); Sodium Level 142 mmol/L (136-145); Triglycerides 81 mg/dL; Very Low Density Lipoprotein 16 mg/dL (5-40)
== END ==
PROVIDERS: Family Provider Family Medicine; PCP Family Medicine; Referring Provider Internal Medicine Cardiovascular Disease; Visit Provider Internal Medicine Cardiovascular Disease
DX: N18.3 Chronic kidney disease, stage 3 (moderate) (principal); E78.00 Pure hypercholesterolemia, unspecified
CPT/HCPCS: 36415; 80053; 80061; 82248

== ENCOUNTER → 2020-07-10 12:01 | Outpatient (CLI) | payer MEDICARE, SELFPAY ==
[2020-06-18 13:30] VITALS: BMI 29.7
[2020-07-10 15:28] LABS: Absolute Lymphocyte Count 2.29 X10^3/uL (0.83-4.51); Absolute Neutrophil Count 3.8 X10^3/uL (2.0-7.7); Basophil# 0.07 X10^3/uL; Basophil% 0.9 % (0-1); Eosinophils% 5.4 % (0-5); Hematocrit 37.7 % (37-47); Hemoglobin 12.1 g/dL (12.0-15.0); Lymphocyte # 2.29 X10^3/ul (4.0); Lymphocyte % 31.1 % (19-41); Mean Corp Hgb Conc 32.1 g/dL (32-36); Mean Corpuscular Hgb 31.8 pg (27.0-32.0); Mean Platelet Vol. 10.2 fl (6.2-12.0); Monocyte# 0.79 X10^3/uL; Monocyte% 10.7 % (0-10); NRBC Flagged by Analyzer 0 % (0-5); Neutrophil % 51.6 % (47-70); Platelet Count 254 K/mm3 (150-450); RBC Distribution Width CV 12.7 % (11.6-14.6); RBC Distribution Width SD 45.9 fl (35.1-43.9); Red Blood Count 3.81 M/mm3 (4.2-5.4); White Blood Count 7.4 K/mm3 (4.4-11.0)
[2020-07-10 15:42] LABS: Vitamin D,25 Hydroxy 46.8 ng/mL
[2020-07-10 15:48] LABS: AST(SGOT) 18 U/L (15-37); Alanine Aminotransfer ALT/SGPT 20 U/L (13-56); Albumin, Serum 3.8 g/dL (3.2-5.0); Alkaline Phosphatase 128 U/L (45-117); Anion Gap 8 (5-15); BUN 35 mg/dL (7-18); BUN/Creat Ratio 39.5 RATIO (10-20); Calcium,Total 9.5 mg/dL (8.5-10.1); Chloride 108 mmol/L (98-107); Creatinine, Serum 0.88 mg/dL (0.55-1.02); EST Glomerular Filtration Rate 65 mL/min (>60); Est Glom Filt Rate - Afr Amer 78 mL/min (>60); Globulin 3.8 g/dL (2.2-4.2); Glucose 107 mg/dL (74-106); Potassium 3.7 mmol/L (3.5-5.1); Protein, Total 7.6 g/dL (6.4-8.2); Sodium Level 141 mmol/L (136-145)
== END ==
PROVIDERS: PCP Family Medicine; Visit Provider Family Medicine
DX: E55.9 Vitamin D deficiency, unspecified (principal); R53.83 Other fatigue; Z51.81 Encounter for therapeutic drug level monitoring; N18.30 Chronic kidney disease, stage 3 unspecified
CPT/HCPCS: 36415; 80053; 82306; 84443; 85025

== ENCOUNTER → 2021-01-16 08:04 | Outpatient (CLI) | payer MEDICARE, SELFPAY ==
[2020-06-18 13:30] VITALS: BMI 29.7
[2021-01-16 08:35] LABS: Absolute Lymphocyte Count 2.28 X10^3/uL (0.83-4.51); Absolute Neutrophil Count 3.9 X10^3/uL (2.0-7.7); Basophil% 1.3 % (0-1); Eosinophil# 0.52 X10^3/uL; Eosinophils% 6.7 % (0-5); Hematocrit 39.1 % (37-47); Hemoglobin 12.7 g/dL (12.0-15.0); Lymphocyte # 2.28 X10^3/ul (0.83-4.51); Lymphocyte % 29.5 % (19-41); Mean Corp Hgb Conc 32.5 g/dL (32-36); Mean Corpuscular Hgb 31.9 pg (27.0-32.0); Mean Corpuscular Volume 98.2 fL (81-99); Mean Platelet Vol. 9.6 fl (6.2-12.0); Monocyte# 0.87 X10^3/uL; Monocyte% 11.3 % (0-10); NRBC Flagged by Analyzer 0 % (0-5); Neutrophil # 3.94 X10^3/uL (2.7-7.7); Neutrophil % 50.9 % (47-70); Platelet Count 281 K/mm3 (150-450); RBC Distribution Width CV 12.5 % (11.6-14.6); RBC Distribution Width SD 44.9 fl (35.1-43.9); Red Blood Count 3.98 M/mm3 (4.2-5.4); White Blood Count 7.7 K/mm3 (4.4-11.0)
[2021-01-16 09:02] LABS: ALB/GLOB Ratio 0.9 RATIO (0.9-2.4); AST(SGOT) 18 U/L (15-37); Alanine Aminotransfer ALT/SGPT 17 U/L (13-56); Albumin, Serum 3.8 g/dL (3.2-5.0); Alkaline Phosphatase 151 U/L (45-117); Anion Gap 8 (5-15); BUN 30 mg/dL (7-18); BUN/Creat Ratio 29.1 RATIO (10-20); Bilirubin, Direct 0.14 mg/dL (0.00-0.30); Calcium,Total 9.5 mg/dL (8.5-10.1); Chloride 107 mmol/L (98-107); Cholesterol 207 mg/dL (200); Creatinine, Serum 1.03 mg/dL (0.55-1.02); EST Glomerular Filtration Rate 54 mL/min (>60); Est Glom Filt Rate - Afr Amer 66 mL/min (>60); Globulin 4.3 g/dL (2.2-4.2); Glucose 113 mg/dL (74-106); High Density Lipoprotein 53 mg/dL; Potassium 4.1 mmol/L (3.5-5.1); Protein, Total 8.1 g/dL (6.4-8.2); Sodium Level 142 mmol/L (136-145); Thyroid Stim Hormone (TSH) 2.95 uIU/mL (0.358-3.74); Triglycerides 51 mg/dL; Uric Acid 6.3 mg/dL (2.6-6.0); Very Low Density Lipoprotein 10 mg/dL (5-40)
== END ==
PROVIDERS: Nurse Practitioner Family; PCP Family Medicine; Referring Provider Family Medicine; Visit Provider Family Medicine
DX: Z51.81 Encounter for therapeutic drug level monitoring (principal); I12.9 Hypertensive chronic kidney disease with stage 1 through stage 4 chronic kidney disease, or unspecified chronic kidney disease; N18.30 Chronic kidney disease, stage 3 unspecified; R53.83 Other fatigue
CPT/HCPCS: 36415; 80053; 80061; 82248; 84443; 84550; 85025

== ENCOUNTER → 2021-08-05 09:20 | Outpatient (CLI) | payer MEDICARE, SELFPAY ==
[2021-08-05 09:52] LABS: Prothrombin Time (Protime)PT. 59.5 SECONDS (11.7-14.9)
[2021-08-05 10:31] LABS: AST(SGOT) 40 U/L (15-37); Alanine Aminotransfer ALT/SGPT 43 U/L (13-56); Albumin, Serum 3.6 g/dL (3.2-5.0); Alkaline Phosphatase 128 U/L (45-117); Bilirubin, Direct 0.07 mg/dL (0.00-0.30); Cholesterol 208 mg/dL (200); Globulin 4.3 g/dL (2.2-4.2); High Density Lipoprotein 53 mg/dL; Protein, Total 7.9 g/dL (6.4-8.2); Triglycerides 48 mg/dL; Very Low Density Lipoprotein 10 mg/dL (5-40)
== END ==
PROVIDERS: PCP Family Medicine; Referring Provider Internal Medicine Cardiovascular Disease; Visit Provider Internal Medicine Cardiovascular Disease
DX: E78.5 Hyperlipidemia, unspecified (principal); Z79.01 Long term (current) use of anticoagulants
CPT/HCPCS: 36415; 80061; 80076; 85610

== ENCOUNTER 2021-08-07 09:21 | Outpatient (RCR) | payer MEDICARE, SELFPAY ==
[2021-08-07 09:58] LABS: International Normalized Ratio 4.4
== END 2021-08-09 18:00 | disposition home or self-care (01) ==
LOC: LAB 09:21
PROVIDERS: PCP Family Medicine; Referring Provider Internal Medicine Cardiovascular Disease; Visit Provider Internal Medicine Cardiovascular Disease
DX: Z79.01 Long term (current) use of anticoagulants (principal)
CPT/HCPCS: 36415; 85610

== ENCOUNTER 2021-09-03 09:16 | Outpatient (RCR) | payer MEDICARE, SELFPAY ==
[2021-08-14 09:31] LABS: International Normalized Ratio 4.2
[2021-08-21 09:45] LABS: Prothrombin Time (Protime)PT. 21.6 SECONDS (11.7-14.9)
[2021-09-03 10:12] LABS: International Normalized Ratio 1.4; Prothrombin Time (Protime)PT. 16.3 SECONDS (11.7-14.9)
== END 2021-09-08 18:00 | disposition home or self-care (01) ==
LOC: LAB 09:16
PROVIDERS: PCP Family Medicine; Referring Provider Internal Medicine Cardiovascular Disease; Visit Provider Internal Medicine Cardiovascular Disease
DX: Z79.01 Long term (current) use of anticoagulants (principal)
CPT/HCPCS: 36415; 85610

== ENCOUNTER 2021-09-25 09:47 | Outpatient (RCR) | payer MEDICARE, SELFPAY ==
[2021-09-18 10:39] LABS: International Normalized Ratio 1.8; Prothrombin Time (Protime)PT. 20.1 SECONDS (11.7-14.9)
[2021-09-25 11:39] LABS: International Normalized Ratio 1.9; Prothrombin Time (Protime)PT. 20.8 SECONDS (11.7-14.9)
== END 2021-09-25 18:00 | disposition home or self-care (01) ==
LOC: LAB 09:47
PROVIDERS: PCP Family Medicine; Referring Provider Internal Medicine Cardiovascular Disease; Visit Provider Internal Medicine Cardiovascular Disease
DX: Z79.01 Long term (current) use of anticoagulants (principal)
CPT/HCPCS: 36415; 85610

== ENCOUNTER 2021-10-14 12:47 | Outpatient (CLI) | payer MEDICARE, SELFPAY ==
--- NOTE | 2021-10-14 12:54 | ECHOD_ITS ---
Reason For Study: MURMUR Procedure This was a 2D Doppler, Color Flow transthoracic echocardiogram. The exam was of adequate technical quality. Exam performed in department. Left Ventricle Normal LV size. Left ventricular systolic function is normal. The estimated ejection fraction is 70 %. No regional wall motion abnormalities noted. Right Ventricle Normal RV size. Normal systolic function. Atria The left atrium is moderately enlarged. Normal right atrium. No doppler evidence for ASD. Mitral Valve There is moderate to severe mitral annular calcification. Extension of the mitral annular calcification onto the posterior mitral valve leaflef. The mitral valve chordae are thickened and/or calcified. Mild (1+) mitral valve insufficiency. Tricuspid Valve Normal tricuspid valve. Mild tricuspid valve insufficiency. Right ventricular systolic pressure estimated to be 33 mmHg. Aortic Valve Trisinus/trileaflet aortic valve. Mild diffuse aortic valve thickening. Moderate focal aortic valve calcification. Mild to moderate aortic stenosis. Pulmonic Valve The pulmonic valve is not well visualized. Mild (1+) pulmonic valve insufficiency. Great Vessels Normal sized aortic root. Pericardium/Pleural No pericardial effusion. MMode/2D Measurements & Calculations LVIDd: 4.5 cm IVSd: 0.98 cm LVOT diam: 2.1 cm LVIDs: 3.4 cm LVPWd: 1.2 cm LVOT area: 3.3 cm2 RVDd: 3.6 cm FS: 24.7 % Ao root diam: 3.2 cm LAV(MOD-bp): 113.0 ml LA A4 area: 28.9 cm2 LAV(MOD-bp) Indexed: 58.7 ml/m2 LAV(MOD-sp2): 107.2 ml LAV(MOD-sp4): 108.5 ml LA dimension(2D): 4.2 cm RA A4 area: 15.6 cm2 Time Measurements MV dec time: 0.27 sec Doppler Measurements & Calculations MV E max vinicius: 103.5 cm/sec Lat Peak E' Vinicius: 6.5 cm/sec Med Peak E' Vinicius: 4.7 cm/sec MV A max vinicius: 92.8 cm/sec E/E' lat: 15.8 E/E' med: 21.9 MV E/A: 1.1 Ao V2 max: 208.2 cm/sec LV V1 max: 85.5 cm/sec SV(LVOT): 71.8 ml Ao max P.4 mmHg LV V1 max P.9 mmHg Ao V2 mean: 152.7 cm/sec LV V1 mean P.8 mmHg Ao mean P.2 mmHg LV V1 mean: 64.8 cm/sec Ao V2 VTI: 49.9 cm LV V1 VTI: 21.6 cm SHAI(I,D): 1.4 cm2 SHAI(V,D): 1.4 cm2 PA V2 max: 106.0 cm/sec TR max vinicius: 272.8 cm/sec TR max P.8 mmHg ECHO/Echo Complete Interpretation Summary Left ventricular systolic function is normal. The estimated ejection fraction is 70 %. The left atrium is moderately enlarged. There is moderate to severe mitral annular calcification. Extension of the mitral annular calcification onto the posterior mitral valve l eaflef. The mitral valve chordae are thickened and/or calcified. Mild (1+) mitral valve insufficiency. Mild tricuspid valve insufficiency. Mild to moderate aortic stenosis. Mild (1+) pulmonic valve insufficiency. Right ventricular systolic pressure estimated to be 33 mmHg. Transmitral diastolic flow velocities suggest diastolic dysfunction (pseudonorm al pattern). Ordering Physician: Shaggy Staples Referring Physician: Robyn Serrato Performed By: Sandy Griffith, RDCS, RVT
== END 2021-10-14 23:59 | disposition home or self-care (01) ==
PROVIDERS: PCP Family Medicine; Referring Provider Internal Medicine Cardiovascular Disease; Visit Provider Internal Medicine Cardiovascular Disease
DX: I48.0 Paroxysmal atrial fibrillation (principal); I48.92 Unspecified atrial flutter; Z98.890 Other specified postprocedural states; I25.10 Atherosclerotic heart disease of native coronary artery without angina pectoris
CPT/HCPCS: 93225; 93226; 93306

== ENCOUNTER 2021-11-06 10:16 | Outpatient (RCR) | payer MEDICARE, SELFPAY ==
[2021-10-09 11:59] LABS: International Normalized Ratio 2.9; Prothrombin Time (Protime)PT. 29.7 SECONDS (11.7-14.9)
[2021-10-29 10:38] LABS: International Normalized Ratio 3.5
[2021-11-06 11:18] LABS: International Normalized Ratio 1.9; Prothrombin Time (Protime)PT. 20.6 SECONDS (11.7-14.9)
== END 2021-11-06 18:00 | disposition home or self-care (01) ==
LOC: LAB 10:16
PROVIDERS: PCP Family Medicine; Referring Provider Internal Medicine Cardiovascular Disease; Visit Provider Internal Medicine Cardiovascular Disease
DX: Z79.01 Long term (current) use of anticoagulants (principal)
CPT/HCPCS: 36415; 85610

== ENCOUNTER 2021-12-02 09:36 | Outpatient (RCR) | payer MEDICARE, SELFPAY ==
[2021-12-02 10:09] LABS: Absolute Lymphocyte Count 2.15 X10^3/uL (0.83-4.51); Absolute Neutrophil Count 2.4 X10^3/uL (2.0-7.7); Basophil# 0.04 X10^3/uL; Basophil% 0.8 % (0-1); Eosinophil# 0.11 X10^3/uL; Eosinophils% 2.1 % (0-5); Hematocrit 40.4 % (37-47); Hemoglobin 13.3 g/dL (12.0-15.0); Lymphocyte # 2.15 X10^3/ul (0.83-4.51); Lymphocyte % 40.3 % (19-41); Mean Corp Hgb Conc 32.9 g/dL (32-36); Mean Corpuscular Hgb 33.3 pg (27.0-32.0); Mean Corpuscular Volume 101.3 fL (81-99); Mean Platelet Vol. 9.8 fl (6.2-12.0); Monocyte# 0.67 X10^3/uL; Monocyte% 12.6 % (0-10); NRBC Flagged by Analyzer 0 % (0-5); Neutrophil # 2.35 X10^3/uL (2.7-7.7); Platelet Count 197 K/mm3 (150-450); RBC Distribution Width CV 14.6 % (11.6-14.6); RBC Distribution Width SD 54.9 fl (35.1-43.9); Red Blood Count 3.99 M/mm3 (4.2-5.4); White Blood Count 5.3 K/mm3 (4.4-11.0)
[2021-12-02 10:20] LABS: International Normalized Ratio 2.4; Prothrombin Time (Protime)PT. 25.9 SECONDS (11.7-14.9)
== END 2021-12-02 18:00 | disposition home or self-care (01) ==
LOC: LAB 09:36
PROVIDERS: Nurse Practitioner Gerontology; PCP Family Medicine; Referring Provider Internal Medicine Cardiovascular Disease; Visit Provider Internal Medicine Cardiovascular Disease
DX: Z79.01 Long term (current) use of anticoagulants (principal); R53.83 Other fatigue
CPT/HCPCS: 36415; 85025; 85610

== ENCOUNTER 2021-12-18 08:05 | Outpatient (RCR) | payer MEDICARE, SELFPAY ==
[2021-12-18 09:19] LABS: International Normalized Ratio 2.6; Prothrombin Time (Protime)PT. 27.6 SECONDS (11.7-14.9)
== END 2021-12-18 18:00 | disposition home or self-care (01) ==
LOC: LAB 08:05
PROVIDERS: PCP Family Medicine; Referring Provider Internal Medicine Cardiovascular Disease; Visit Provider Internal Medicine Cardiovascular Disease
DX: Z79.01 Long term (current) use of anticoagulants (principal)
CPT/HCPCS: 36415; 85610

== ENCOUNTER 2021-12-24 13:41 | Emergency (ER) | payer MEDICARE, SELFPAY ==
[2021-12-24] VITALS (7 sets, daily range): BP systolic 132–155; BP diastolic 67–103; PULSE 110–121; RESP 17–18; TEMP 36.2; O2SAT 95–97; BMI 28.5
--- NOTE | 2021-12-24 13:59 | NURSING ---
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 Resp called for EKG, patient continued to be in a-fib after relaxing in bed.
--- NOTE | 2021-12-24 14:08 | EKG12_ITS ---
Test Reason : Blood Pressure : / mmHG Vent. Rate : 117 BPM Atrial Rate : 065 BPM P-R Int : 224 ms QRS Dur : 120 ms QT Int : 316 ms P-R-T Axes : 071 066 060 degrees QTc Int : 440 ms Atrial Flutter with variable block Occasional PVC's Confirmed by MOR SANCHEZ, IESHA ([id number]), editor at large CARLTON SUMNER ([id number]) on 12/26/2021 10:54:53 A M Referred By: Confirmed By:RANDA JUARES MD
--- NOTE | 2021-12-24 14:21 | CT_ITS ---
STUDY: CT BRAIN WITHOUT CONTRAST REASON FOR EXAM: Female, 86 years old. Confusion, walking to the left, headache on Coumadin RADIATION DOSAGE (If Supplied By Facility): CTDIvol = ( 44.99 ) mGy, DLP = ( 796.11 ) mGycm TECHNIQUE: Transaxial CT imaging of the brain was performed without administration of intravenous contrast material. Individualized dose optimization techniques were used for this CT. COMPARISON: Comparison is made with prior study dated 08/15/2019. FINDINGS: Normal soft tissue structures. Normal calvarium. There is mild cerebral atrophy with widening of the extra-axial spaces and ventricular dilatation. There are areas of decreased attenuation within the white matter tracts of the supratentorial brain, consistent with microvascular disease changes. Stable small bilateral lacunar infarcts. Normal brainstem. Normal cerebellum. There is a 2.5 cm x 1.9 cm intracerebral hematoma in the posterior medial aspect of the left occipital lobe with surrounding edema and minimal mass effect. There are no findings of an acute ischemic infarction. Normal visualized paranasal sinuses. CT/Brain/Head without Contrast IMPRESSION: Chronic involutional changes of the brain. 2.5 cm x 1.9 cm intracerebral hematoma in the posterior medial aspect of the left occipital lobe with surrounding edema and minimal mass effect. The attending physician was notified. Electronically Signed: Solo Wilburn MD at 14:58 EDT ,
[2021-12-24 14:43] LABS: Absolute Lymphocyte Count 2.15 X10^3/uL (0.83-4.51); Absolute Neutrophil Count 3.5 X10^3/uL (2.0-7.7); Basophil# 0.05 X10^3/uL; Basophil% 0.7 % (0-1); Eosinophil# 0.08 X10^3/uL; Eosinophils% 1.2 % (0-5); Hematocrit 37.3 % (37-47); Hemoglobin 12.3 g/dL (12.0-15.0); Lymphocyte # 2.15 X10^3/ul (0.83-4.51); Lymphocyte % 32.2 % (19-41); Mean Corpuscular Hgb 33.2 pg (27.0-32.0); Mean Corpuscular Volume 100.5 fL (81-99); Mean Platelet Vol. 9.5 fl (6.2-12.0); Monocyte# 0.84 X10^3/uL; Monocyte% 12.6 % (0-10); NRBC Flagged by Analyzer 0 % (0-5); Neutrophil # 3.54 X10^3/uL (2.7-7.7); Neutrophil % 53.2 % (47-70); Platelet Count 184 K/mm3 (150-450); RBC Distribution Width CV 13.2 % (11.6-14.6); RBC Distribution Width SD 49.1 fl (35.1-43.9); Red Blood Count 3.71 M/mm3 (4.2-5.4); White Blood Count 6.7 K/mm3 (4.4-11.0)
--- NOTE | 2021-12-24 14:44 | ED.VIS.STROK ---
HPI History of Present Illness Chief Complaint: Confusion Detail of Chief Complaint: Onset of confusion Wednesday Informant: patient and family Onset/Context/Timing Onset: Yesterday (Greater than 24 hours ago) Context: Sudden Onset Timing: Continuous Onset: Effusion and walking to the left Current Severity: Mild Maximum Severity: Mild Worsened by: Nothing Relieved by: Nothing Associated Symptoms Associated Symptoms: Positive for Headache; Negative for Nausea, Vomiting and Chest Pain Narrative Narrative: Patient is a 86-year-old woman with history of atrial fibrillation on Coumadin, TIA, hypertension, osteoarthritis and hyperlipidemia who presents because of confusion that started Wednesday. Daughter noted she is walking to the left. She states it took her 2 hours to figure out how to take her medicine this afternoon. She does endorse having a headache. Changes of her head headache. She denies double vision, blurred vision loss of vision. Nuys ringing or ears decreased hearing. Denies trouble speech or swallowing. She denies cardiac respiratory symptoms. She denies nausea, vomiting diarrhea. Denies black or maroon-colored stool. She does have history of paroxysmal atrial fibrillation. She is on Coumadin. She denies paresthesia, anesthesia or motor weakness. Prior similar symptoms: No Recent Illness/Hospitalization: No PFSH PFS Medical History Atherosclerotic heart disease of [place] coronary artery without angina pectoris Atrial flutter Essential hypertension History of supraventricular tachycardia History of TIA (transient ischemic attack) HLD (hyperlipidemia) Paroxysmal atrial fibrillation Shortness of breath Status post placement of implantable loop recorder Syncope unusual tiredness Home Medications calcium carbonate-vitamin D3 1 ea PO DAILY 09/17/16 [History Last Taken 04/26/17 08:00 1] aspirin 81 mg chewable tablet 81 mg PO QDAY 12/26/17 [History Last Taken Unknown] hydrochlorothiazide 12.5 mg capsule 12.5 mg PO DAILY #90 cap 06/18/20 [Rx Last Taken Unknown] losartan 25 mg tablet 25 mg PO BID #180 tab 06/18/21 [Rx Last Taken Unknown] warfarin 1 mg tablet 1 mg PO DAILY #90 tab 08/14/21 [Rx Last Taken Unknown] carvedilol 3.125 mg PO BID 12/24/21 [History Last Taken Unknown] ezetimibe 10 mg PO DAILY 12/24/21 [History Last Taken Unknown] omega-3 fatty acids [[place] 3] 1,000 mg PO BID 12/24/21 [History Last Taken Unknown] Allergy/AdvReac Type Severity Reaction Status Date / Time latex Allergy Rash Verified 12/24/21 13:41 atorvastatin AdvReac Severe elevated Verified 12/24/21 13:41 LFT's codeine AdvReac Severe Syncope Verified 12/24/21 13:41 Sulfa (Sulfonamide AdvReac Severe Became Verified 12/24/21 13:41 Antibiotics) cold and clammy adhesive tape AdvReac Intermediate Rash Verified 12/24/21 13:41 gemfibrozil AdvReac Intermediate Myalgias Verified 12/24/21 13:41 levofloxacin AdvReac Intermediate restless Verified 12/24/21 13:41 leg movements morphine AdvReac Vomiting Verified 12/24/21 13:41 oxycodone AdvReac Vomiting Verified 12/24/21 13:41 tramadol AdvReac Other Verified 12/24/21 13:41 Family History Other Heart disease Surgical History History of hip replacement History of knee replacement History of radiofrequency ablation procedure for cardiac arrhythmia (~2003) Social History (Updated 12/24/21 @ 14:[address] Bill Kern MD) household members: none Smoking Status: Never smoker alcohol intake: never substance use type: does not use ROS ROS ED Constitutional Constitutional ED: Denies chills, fever(s), subjective or sweats Eyes Eyes: Denies blurry vision, change in vision or diplopia ENT ENT ED: Denies ear pain, rhinorrhea or sore throat Cardiovascular Cardiovascular: Denies chest pain, palpitations, paroxysmal nocturnal dyspnea or racing heartbeat Respiratory/Chest Respiratory/Chest: Reports cough; Denies dyspnea, dyspnea on exertion, paroxysmal nocturnal dyspnea or sputum Gastrointestinal Gastrointestinal: Denies abdominal pain, constipation, diarrhea, nausea or vomiting Genitourinary Genitourinary ED: Reports urinary frequency; Denies dysuria or hematuria Musculoskeletal Musculoskeletal: Denies arthralgias, myalgias or neck pain Integumentary Denies abscess, Abrasions or rash Neurologic Neurologic: Reports headache(s) and other Details: Per daughter walking to the left ; Denies paresthesias or weakness Psychiatric Psychiatric: Denies depression Endocrine Endocrinology: Denies polydipsia, polyphagia or polyuria Hematologic/Lymphatic Hematologic/Lymphatic: Denies easy bleeding or easy bruising EXAM Physical Exam Const Vital Signs: 12/24/21 13:42 12/24/21 14:01 12/24/21 14:30 Temperature 97.1 F L Temperature Source Temporal Pulse Rate 120 H 115 H 110 H Respiratory Rate 18 18 Blood Pressure 132/67 H 146/87 H 134/92 H Blood Pressure Mean 88 106 106 Pulse Ox 96 Oxygen Delivery Method Room Air 12/24/21 15:07 Temperature Temperature Source Pulse Rate Respiratory Rate Blood Pressure Blood Pressure Mean Pulse Ox 95 Oxygen Delivery Method Nasal Cannula Positive well nourished and well developed General Appearance ED: well developed and NAD HEENT Reports TM's clear and moist mucous membranes atraumatic Nose: other Other Details: Nares patent. Posterior pharynx not erythema or exudate. Uvula midline. Tympanic Membrane ED: Yes TM's clear Eyes PERRL and EOMs intact bilaterally General Eye ED: Yes other Other Details: There is no nystagmus. There is no APD. Difficult to see fundi due to miosis. ; Negative for pale conjunctiva or scleral icterus Neck no lymphadenopathy, supple and no JVD Chest Wall inspection of chest normal and palpation of chest normal Resp normal respiratory effort and clear to auscultation bilaterally Cardio no murmurs Rate: tachycardic Rhythm: abnormal rhythm irregularly irregular and other GI normal to inspection, nondistended, normoactive bowel sounds, soft to palpation and non-tender Back/Spine no CVA tenderness Cervical Spine: Negative for cervical spine tenderness Thoracic Spine / Upper Back: Negative for thoracic spinal tenderness Lumbar Spine / Lower Back: Negative for lumbar spinal tenderness Extremity normal to inspection General Extremety ED: Negative for deformity or tenderness General Extremity: Negative for deformity Neuro oriented x3, CN's II-XII intact bilaterally and no sensory deficits noted Neuro Narrative: DTR symmetric. Equivocal Babinski on the left Savita Coma Scale: document GCS findings Spontaneous Obeys Commands Oriented 15 Sensorium / Orientation: alert and confused Speech: Negative for speech normal Gait (Neuro): Negative for normal gait Motor Exam: strength 5/5 throughout Psych mental status grossly normal Skin no wounds General Skin Exam: Negative for jaundice Lesions: no lesions Rashes: no rashes STROKE Vital Signs/Narrative: Vital Signs Temp Pulse Resp BP Pulse Ox 12/24/21 15:07 95 12/24/21 14:30 110 H 134/92 H 12/24/21 14:01 115 H 18 146/87 H 12/24/21 13:42 97.1 F L 120 H 18 132/67 H 96 MDM MDM MDM Narrative Medical decision making narrative: With patient complaint of cough will obtain chest x-ray to rule out pulmonary process. With history of frequency since Wednesday will obtain UA to rule out urinary tract infection. Because she complains of headache and is walking to the left need to rule out hemorrhagic versus nonhemorrhagic stroke. This may be a spontaneous bleed because she is on Coumadin. Hemorrhagic stroke order set was initiated after reviewing CAT scan that was independently interpreted by me as a right occipital hemorrhage. Spoke to family to verify there is no history of trauma. They deny history of trauma. She will receive 10 mg of vitamin K. Kcentra was ordered. Dose is dependent on INR. The INR still pending. Spoke with the neurosurgeon at [facility]. He did look at images. He is concerned this represents a tumor and not a hemorrhage. He was informed of patient's laboratory results rhythm. He requested that the Kcentra not be given. He is excepted patient. Since his appears to be a tumor and not a hemorrhage and a vitamin K was held. Lab Data Attestation: I reviewed the patient's lab results. Labs: Laboratory Results - last 24 hr 12/24/21 12/24/21 12/24/21 14:34 14:34 14:34 WBC 6.7 RBC 3.71 L Hgb 12.3 Hct 37.3 MCV 100.5 H MCH 33.2 H MCHC 33.0 RDW Std Deviation 49.1 H RDW Coeff of Chase 13.2 Plt Count 184 MPV 9.5 Immature Gran % (Auto) 0.100 Neut % (Auto) 53.2 Lymph % (Auto) 32.2 Keith % (Auto) 12.6 H Eos % (Auto) 1.2 Baso % (Auto) 0.7 Absolute Neuts (auto) 3.5 Absolute Lymphs (auto) 2.15 Nucleated RBC % 0 PT 28.7 H INR 2.7 Sodium 141 Potassium 3.9 Chloride 107 Carbon Dioxide 28.0 Anion Gap 6 BUN 31 H Creatinine 1.02 Estim Creat Clear Calc 39.93 Est GFR (MDRD) Af Amer 66 Est GFR (MDRD) Non-Af 55 L BUN/Creatinine Ratio 30.4 H Glucose 126 H Calcium 9.1 Total Bilirubin 0.60 AST 34 ALT 34 Alkaline Phosphatase 86 Total Protein 6.8 Albumin 3.1 L Globulin 3.7 Albumin/Globulin Ratio 0.8 L Radiography Diagnostic Testing: Clinical Impression(s) from Imaging Studies Brain CT 12/24/21 14:21 IMPRESSION: Chronic involutional changes of the brain. 2.5 cm x 1.9 cm intracerebral hematoma in the posterior medial aspect of the left occipital lobe with surrounding edema and minimal mass effect. The attending physician was notified. Electronically Signed: Solo Wilburn MD at 14:58 EDT , Chest X-Ray 12/24/21 14:45 IMPRESSION: Borderline cardiomegaly. Mild degree of CHF with blunting of both clustering angles posteriorly. Electronically Signed: Solo Wilburn MD at 15:10 EDT , EKG Initial EKG: Attestation: I personally reviewed and interpreted this EKG as follows: Interpretation: - (EKG reveals a rapid rate with narrow complexes and frequent premature beats versus a variant beats suspect patient has variable a flutter/fib. QRS duration is 120 ms. QT duration 316 ms. Mccune is normal.) Stroke Documentation Questions Stroke Team Activated: No Reviewed Inclusion/Exclusion criteria: Yes IV Alteplase (t-PA) Administered: No No contraindications for IV Alteplase (t-PA) administration.: No Critical Care Time Critical Care Time: Yes Critical care time (excluding procedures): 30-74 minutes (32 minutes), Including time spent: (History, physical, documentation review of prior records interpretation laboratory results), Discussing w/Patient &/or Family/Pneumatic Tool Repairer (Regarding CAT scan images/results and discussion with neurosurgeon at [facility]), Discussing w/Consultants (Radiologist at [facility] and neurosurgeon) and Arranging Admission or Transfer Discharge Plan Triage Chief Complaint: Confusion ED Provider: Bill Kern Dx/Rx/DC Orders Clinical Impression: 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, Essential hypertension, skilled nursing current use of anticoagulant, Atrial fibrillation/flutter Prescriptions: No Action aspirin [Millicent Chewable Aspirin] 81 mg tablet,chewable 81 mg PO QDAY RF: 0 hydrochlorothiazide 12.5 mg capsule 12.5 mg PO DAILY Qty: 90 RF: 3 calcium carbonate-vitamin D3 1 EACH tablet 1 ea PO DAILY RF: 0 ezetimibe 10 mg tablet 10 mg PO DAILY RF: 0 carvedilol 3.125 mg Tablet 3.125 mg PO BID RF: 0 [place] 3 Capsule 1,000 mg PO BID RF: 0 losartan 25 mg tablet 25 mg PO BID Qty: 180 RF: 3 warfarin 1 mg tablet 1 mg PO DAILY Qty: 90 RF: 3 Primary Care Provider: Robyn Serrato Referrals: Robyn Serrato DO [Primary Care Provider] - Disposition Disposition: Acute Care Hospital Discharge Location: [facility]
--- NOTE | 2021-12-24 14:45 | RAD_ITS ---
STUDY: X-RAY CHEST REASON FOR EXAM: Female, 86 years old. Cough TECHNIQUE: AP and lateral views of the chest. COMPARISON: Comparison is made with prior study dated 07/06/2019. FINDINGS: EKG electrodes are seen. Mild degree of CHF. There is blunting of both costophrenic angles. Borderline cardiomegaly. Normal mediastinum and henrique. Normal visualized pulmonary arteries. There is atherosclerotic calcification of the aortic arch with tortuosity. There are diffuse degenerative changes of the visualized thoracic spine. Normal visualized ribs, clavicles, and shoulders. There is no demonstrated abnormality of the visualized soft tissue structures of the upper abdomen. RAD/Chest PA and Lateral IMPRESSION: Borderline cardiomegaly. Mild degree of CHF with blunting of both clustering angles posteriorly. Electronically Signed: Solo Wilburn MD at 15:10 EDT ,
[2021-12-24 14:58] LABS: International Normalized Ratio 2.7; Prothrombin Time (Protime)PT. 28.7 SECONDS (11.7-14.9)
[2021-12-24] MEDS: Labetalol (Prefilled) 20 MG/4 ML IV ×3 (15:01→16:10)
[2021-12-24 15:03] LABS: ALB/GLOB Ratio 0.8 RATIO (0.9-2.4); AST(SGOT) 34 U/L (15-37); Alanine Aminotransfer ALT/SGPT 34 U/L (13-56); Albumin, Serum 3.1 g/dL (3.2-5.0); Alkaline Phosphatase 86 U/L (45-117); Anion Gap 6 (5-15); BUN 31 mg/dL (7-18); BUN/Creat Ratio 30.4 RATIO (10-20); Calcium,Total 9.1 mg/dL (8.5-10.1); Chloride 107 mmol/L (98-107); Creatinine, Serum 1.02 mg/dL (0.55-1.02); EST Glomerular Filtration Rate 55 mL/min (>60); Est Glom Filt Rate - Afr Amer 66 mL/min (>60); Estimated Creatinine Clearance 39.93 ml/min; Globulin 3.7 g/dL (2.2-4.2); Glucose 126 mg/dL (74-106); Potassium 3.9 mmol/L (3.5-5.1); Protein, Total 6.8 g/dL (6.4-8.2); Sodium Level 141 mmol/L (136-145)
== END 2021-12-24 16:19 | disposition short-term general hospital (02) ==
PROVIDERS: Emergency Provider Emergency Medicine; PCP Family Medicine; Visit Provider Emergency Medicine
DX: C71.4 Malignant neoplasm of occipital lobe (principal); I11.0 Hypertensive heart disease with heart failure; I48.0 Paroxysmal atrial fibrillation; E78.5 Hyperlipidemia, unspecified; Z79.01 Long term (current) use of anticoagulants; I25.10 Atherosclerotic heart disease of native coronary artery without angina pectoris; Z86.73 Personal history of transient ischemic attack (TIA), and cerebral infarction without residual deficits
CPT/HCPCS: 70450; 71046; 80053; 85025; 85610; 87811; 93005; 99283; J7030; J7050; J7168; A4216; J3490

== ENCOUNTER → 2022-01-12 | Outpatient (CLI) | payer MEDICARE, SELFPAY ==
--- NOTE | 2022-01-12 11:28 | RAD_ITS ---
STUDY: X-RAY CHEST REASON FOR EXAM: Female, 86 years old. Dyspnea TECHNIQUE: PA and lateral views of the chest. COMPARISON: 12/24/2021 FINDINGS: Insertable laboratory monitor. The lungs are clear and expanded. Small bilateral pleural effusions. There is moderate cardiac enlargement. Normal mediastinum and henrique. Normal visualized pulmonary arteries. Normal visualized aortic arch and descending thoracic aorta. There is a dextroscoliosis of the thoracic spine. Multiple healed right rib fractures. There is no demonstrated abnormality of the visualized soft tissue structures of the upper abdomen. RAD/Chest PA and Lateral IMPRESSION: Small bilateral pleural effusions. Electronically Signed: Kj Harris MD at 16:58 EDT ,
[2022-01-12 12:39] LABS: Absolute Lymphocyte Count 2.23 X10^3/uL (0.83-4.51); Absolute Neutrophil Count 4.8 X10^3/uL (2.0-7.7); Basophil# 0.06 X10^3/uL; Basophil% 0.7 % (0-1); Eosinophil# 0.09 X10^3/uL; Eosinophils% 1.1 % (0-5); Hematocrit 36.3 % (37-47); Lymphocyte # 2.23 X10^3/ul (0.83-4.51); Lymphocyte % 27.1 % (19-41); Mean Corp Hgb Conc 33.1 g/dL (32-36); Mean Corpuscular Hgb 32.1 pg (27.0-32.0); Mean Corpuscular Volume 97.1 fL (81-99); Mean Platelet Vol. 9.8 fl (6.2-12.0); Monocyte# 0.98 X10^3/uL; Monocyte% 11.9 % (0-10); NRBC Flagged by Analyzer 0 % (0-5); Neutrophil # 4.83 X10^3/uL (2.7-7.7); Neutrophil % 58.8 % (47-70); Platelet Count 230 K/mm3 (150-450); RBC Distribution Width CV 12.2 % (11.6-14.6); RBC Distribution Width SD 43.8 fl (35.1-43.9); Red Blood Count 3.74 M/mm3 (4.2-5.4); White Blood Count 8.2 K/mm3 (4.4-11.0)
[2022-01-12 13:09] LABS: Anion Gap 7 (5-15); BUN 23 mg/dL (7-18); BUN/Creat Ratio 24.2 RATIO (10-20); Calcium,Total 9.1 mg/dL (8.5-10.1); Chloride 106 mmol/L (98-107); Creatinine, Serum 0.95 mg/dL (0.55-1.02); EST Glomerular Filtration Rate 59 mL/min (>60); Est Glom Filt Rate - Afr Amer 72 mL/min (>60); Glucose 89 mg/dL (74-106); Potassium 3.7 mmol/L (3.5-5.1); Sodium Level 139 mmol/L (136-145)
== END | disposition home or self-care (01) ==
PROVIDERS: PCP Family Medicine; Referring Provider Nurse Practitioner Gerontology; Visit Provider Nurse Practitioner Gerontology
DX: R06.00 Dyspnea, unspecified (principal)
CPT/HCPCS: 36415; 71046; 80048; 83880; 85025

== ENCOUNTER → 2022-01-26 | Outpatient (CLI) | payer MEDICARE, SELFPAY ==
[2022-01-26 10:41] LABS: Anion Gap 7 (5-15); BUN 28 mg/dL (7-18); Calcium,Total 9.3 mg/dL (8.5-10.1); Chloride 104 mmol/L (98-107); EST Glomerular Filtration Rate 56 mL/min (>60); Est Glom Filt Rate - Afr Amer 68 mL/min (>60); Glucose 150 mg/dL (74-106); Potassium 3.3 mmol/L (3.5-5.1); Sodium Level 140 mmol/L (136-145)
== END | disposition home or self-care (01) ==
LOC: LAB 09:33
PROVIDERS: PCP Family Medicine; Referring Provider Nurse Practitioner Gerontology; Visit Provider Nurse Practitioner Gerontology
DX: R06.00 Dyspnea, unspecified (principal)
CPT/HCPCS: 36415; 80048

== ENCOUNTER → 2022-02-11 | Outpatient (CLI) | payer MEDICARE, SELFPAY ==
--- NOTE | 2022-02-11 12:34 | MRI_ITS ---
STUDY: MRI BRAIN WITH AND WITHOUT CONTRAST REASON FOR EXAM: Female, 86 years old. RIGHT OCCIPITA ICH, ASSESS FOR UNDERLYING LESION TECHNIQUE: Standardized multiplanar fat and water weighted pulse sequences were obtained. IV 17mL DOTAREM was administered for the contrast portion of the examination. COMPARISON: 03/28/2022 FINDINGS: Mild atrophy with extensive periventricular white matter ischemic changes without mass effect or restricted diffusion.. There is a hemorrhagic masslike density in the right parietal lobe in the midline in the distribution of the anterior cerebral artery measuring approximately 1.75 x 2.43 x 1.99 cm demonstrating subacute and chronic hemorrhage which does not demonstrate appreciable enhancement following contrast administration. There are however other foci of hemosiderin deposition within the brain in the right parietal and bilateral frontal lobes which are nonspecific in etiology but could be due to vascular atypia or old trauma. Normal bilateral basal ganglia. Normal thalami. There is no extra-axial fluid accumulation. Normal flow voids within the major intracranial circulation suggesting patency by spin echo criteria. Normal venous enhancement. There is no enhancing intra-axial or extra-axial abnormality. Normal sella turcica, pituitary gland, infundibular stalk, optic chiasm and hypothalamus. Normal tectal plate and pineal gland. Chronic ischemic changes within the right pontine body. Normal midbrain, and medulla. Normal cerebellum. Normal basal cisterns. Normal bilateral temporal bones. Normal bilateral internal auditory canals. Postsurgical changes of the orbits.. Normal visualized paranasal sinuses. Normal calvarium and skull base. Normal visualized soft tissue structures. Normal visualized upper cervical spine. The lesion has decreased in size since prior exam and there is less edema suggesting probable benign etiology. MRI/Brain W/WO Contrast IMPRESSION: Right parietal lobe hematoma of indeterminate etiology but has decreased in size since prior exam possibly posttraumatic, hemorrhagic stroke or due to anticoagulant. Advanced periventricular white matter ischemic change without evidence for acute infarct. Chronic ischemic changes within the right pontine body. Incidental finding of multiple other tiny hemosiderin deposits raising question of prior trauma or vascular atypia. Electronically Signed: Chuckie Flores MD at 16:06 EDT ,
== END | disposition home or self-care (01) ==
LOC: MRI 12:28
PROVIDERS: PCP Family Medicine
DX: I61.9 Nontraumatic intracerebral hemorrhage, unspecified (principal)
CPT/HCPCS: 70553; A9575

== ENCOUNTER → 2022-04-29 | Outpatient (CLI) | payer MEDICARE, SELFPAY ==
--- NOTE | 2022-04-29 16:11 | MRI_ITS ---
STUDY: MRI BRAIN WITHOUT CONTRAST REASON FOR EXAM: Female, 86 years old. RT PARIETAL LOBE INTRACRANIAL HEMATOMA FOLLOW UP TECHNIQUE: Standardized multiplanar fat and water weighted pulse sequences were obtained. COMPARISON: 02/11/2022 FINDINGS: Mild cortical atrophy and moderate periventricular white matter ischemic change without mass effect or restricted diffusion.. On the gradient echo weighted imaging sequence there is mild residual hemosiderin deposition in the right parietal lobe measuring approximately 1.3 x 0.9 cm consistent with prior hemorrhage. There are also other scattered tiny foci of hemosiderin deposition within the right parietal lobe. Old lacunar infarct in the head of right caudate nucleus. Normal thalami. There is no extra-axial fluid accumulation. Normal flow voids within the major intracranial circulation suggesting patency by spin echo criteria. Normal sella turcica, pituitary gland, infundibular stalk, optic chiasm and hypothalamus. Normal tectal plate and pineal gland. Normal midbrain, lulu and medulla. Normal cerebellum. Normal basal cisterns. Normal bilateral temporal bones. Normal bilateral internal auditory canals. Postsurgical changes of the orbits.. There is minor mucosal thickening of the ethmoid air cells. Normal calvarium and skull base. Normal visualized soft tissue structures. Normal visualized upper cervical spine. MRI/Brain without Contrast IMPRESSION: Moderate periventricular white matter ischemic changes without evidence for acute infarct. Persistent small parenchymal hematoma in the right parietal lobe which has decreased in size since prior exam. There also tiny scattered residual foci of hemosiderin unchanged Electronically Signed: Chuckie Flores MD at 17:50 EDT ,
== END | disposition home or self-care (01) ==
LOC: MRI 16:08
PROVIDERS: PCP Family Medicine; Visit Provider Family Medicine
DX: I61.5 Nontraumatic intracerebral hemorrhage, intraventricular (principal)
CPT/HCPCS: 70551

== ENCOUNTER → 2022-06-17 | Outpatient (CLI) | payer MEDICARE, SELFPAY ==
[2022-06-17 10:34] LABS: Hematocrit 42.4 % (37-47); Hemoglobin 14.3 g/dL (12.0-15.0); Mean Corp Hgb Conc 33.7 g/dL (32-36); Mean Corpuscular Hgb 32.1 pg (27.0-32.0); Mean Corpuscular Volume 95.3 fL (81-99); Mean Platelet Vol. 9.7 fl (6.2-12.0); Platelet Count 178 K/mm3 (150-450); RBC Distribution Width CV 13.6 % (11.6-14.6); RBC Distribution Width SD 47.7 fl (35.1-43.9); Red Blood Count 4.45 M/mm3 (4.2-5.4); White Blood Count 6.1 K/mm3 (4.4-11.0)
[2022-06-17 11:07] LABS: Vitamin B12 1017 pg/mL (211-911)
[2022-06-17 11:18] LABS: ALB/GLOB Ratio 0.9 RATIO (0.9-2.4); AST(SGOT) 19 U/L (15-37); Alanine Aminotransfer ALT/SGPT 19 U/L (13-56); Albumin, Serum 3.5 g/dL (3.2-5.0); Alkaline Phosphatase 84 U/L (45-117); Anion Gap 6 (5-15); BUN 21 mg/dL (7-18); Calcium,Total 9.2 mg/dL (8.5-10.1); Chloride 106 mmol/L (98-107); Cholesterol 196 mg/dL (200); Creatinine, Serum 0.75 mg/dL (0.55-1.02); EST Glomerular Filtration Rate 78 mL/min (>60); Est Glom Filt Rate - Afr Amer 95 mL/min (>60); Globulin 3.7 g/dL (2.2-4.2); Glucose 103 mg/dL (74-106); High Density Lipoprotein 47 mg/dL; Potassium 3.5 mmol/L (3.5-5.1); Protein, Total 7.2 g/dL (6.4-8.2); Sodium Level 142 mmol/L (136-145); Thyroid Stim Hormone (TSH) 3.05 uIU/mL (0.358-3.74); Triglycerides 90 mg/dL; Very Low Density Lipoprotein 18 mg/dL (5-40)
[2022-06-21 08:08] LABS: Free Lambda Light Chains 20.5 mg/L (5.7-26.3)
[2022-06-21 10:32] LABS: Vitamin B1, Thiamine 158.3 nmol/L (66.5-200.0)
== END | disposition home or self-care (01) ==
LOC: MTLAB 09:22
PROVIDERS: PCP Family Medicine; Visit Provider Psychiatry & Neurology Neurology
DX: G62.9 Polyneuropathy, unspecified (principal); I48.0 Paroxysmal atrial fibrillation; E85.4 Organ-limited amyloidosis; I68.0 Cerebral amyloid angiopathy; I10 Essential (primary) hypertension; E78.5 Hyperlipidemia, unspecified; R73.9 Hyperglycemia, unspecified
CPT/HCPCS: 36415; 80053; 80061; 82607; 82746; 83036; 83883; 84425; 84443; 85027

== ENCOUNTER → 2022-10-20 | Outpatient (CLI) | payer MEDICARE, SELFPAY ==
[2022-10-23 15:09] LABS: Albumin 3.8 g/dL (2.9-4.4); Alpha-1-Globulins 0.2 g/dL (0.0-0.4); Alpha-2-Globulins 0.7 g/dL (0.4-1.0); Gamma Globulin 1.2 g/dL (0.4-1.8); Immunoglobulin A 331 mg/dL (64-422); Immunoglobulin G 1237 mg/dL (586-1602); Immunoglobulin M 124 mg/dL (26-217)
== END | disposition home or self-care (01) ==
PROVIDERS: PCP Family Medicine; Referring Provider Psychiatry & Neurology Neurology; Visit Provider Psychiatry & Neurology Neurology
DX: G62.9 Polyneuropathy, unspecified (principal)
CPT/HCPCS: 36415; 82784; 84165; 86334; 86335

== ENCOUNTER → 2023-06-11 | Outpatient (CLI) | payer MEDICARE, SELFPAY ==
--- NOTE | 2023-06-11 15:01 | CDU_ITS ---
Reason For Study: Lt Carotid Bruit Rt. Velocities/BP Lt. Velocities/BP Prox CCA 73.5/9.9 cm/sec. Prox CCA 52.4/11.8 cm/sec. Mid CCA 50.5/10.4 cm/sec. Mid CCA 49.4/12.7 cm/sec. Dist CCA 61.9/10.4 cm/sec. Dist CCA 64.2/16.2 cm/sec. Prox ICA 58.8/16.1 cm/sec. Prox ICA 79.0/18.8 cm/sec. Mid ICA 47.4/15.4 cm/sec. Mid ICA 46.0/12.5 cm/sec. Dist ICA 88.6/31.4 cm/sec. Dist ICA 49.0/17.0 cm/sec. Rt. ICA/CCA = 1.8. Lt. ICA/CCA = 1.6. Prox ECA 57.2/3.4 cm/sec. Prox ECA 121.6/6.6 cm/sec. Rt. Vert. 44.5/7.7 cm/sec. Lt. Vert. 29.5/9.9 cm/sec. Right Extracranial There is heterogeneous, irregular atherosclerotic plaque noted in the right common carotid artery. The right common carotid artery is tortuous. There is heterogeneous, irregular atherosclerotic plaque noted in the right internal carotid artery. The atherosclerotic plaque causes acoustic shadowing. There is heterogeneous, irregular atherosclerotic plaque noted in the right external carotid artery. The right external carotid artery is tortuous. The atherosclerotic plaque causes acoustic shadowing. Antegrade flow is noted in the right vertebral artery. Left Extracranial There is heterogeneous, irregular atherosclerotic plaque noted in the left common carotid artery. The left common carotid artery is tortuous. There is heterogeneous, irregular atherosclerotic plaque noted in the left internal carotid artery. There is heterogeneous, irregular atherosclerotic plaque noted in the left external carotid artery. The left external carotid artery is tortuous. Antegrade flow is noted in the left vertebral artery. Procedure Carotid Duplex 61692. This is a Carotid Duplex examination using B-mode, color flow and specral Doppler. The exam was diagnostic. Exam performed in department. VL/Carotid Duplex Ultrasound Interpretation Summary Irregular calcific plaque at the proximal right internal carotid artery with le ss than 50% stenosis. Tortuosity of the right common and external carotid artery noted. Less than 50% stenosis right external carotid artery Tortuous left common carotid artery with irregular calcific plaque at the proxi mal left internal carotid artery with less than 50% stenosis. Less than 50% stenosis left external carotid artery with tortuosity noted. Patent and antegrade vertebral arteries bilaterally Ordering Physician: Franky Hermosillo Referring Physician: Robyn Serrato Performed By: Eduard Li RVT
== END | disposition home or self-care (01) ==
LOC: CVS 14:57
PROVIDERS: PCP Family Medicine; Referring Provider Psychiatry & Neurology Neurology; Visit Provider Psychiatry & Neurology Neurology
DX: R09.89 Other specified symptoms and signs involving the circulatory and respiratory systems (principal)
CPT/HCPCS: 93880

== ENCOUNTER → 2023-06-30 | Outpatient (CLI) | payer MEDICARE, SELFPAY ==
--- NOTE | 2023-06-30 12:36 | ECHOD_ITS ---
Reason For Study: SHEPHERD Procedure This was a 2D Doppler, Color Flow transthoracic echocardiogram. Exam performed in department. Left Ventricle Normal LV size. Mild concentric left ventricular hypertrophy. The left ventricular ejection fraction is 35 %. Diastolic function is indeterminate. Right Ventricle Normal right ventricle. Atria There is severe biatrial dilatation. Mitral Valve Severe mitral annular calcification. Moderate (2+) mitral valve insufficiency. Tricuspid Valve Moderate (2+) tricuspid valve insufficiency. Right ventricular systolic pressure estimated to be 38 mmHg. Aortic Valve Moderate diffuse aortic valve calcification. Mild aortic stenosis. Trivial aortic valve insufficiency. Pulmonic Valve The pulmonic valve is not well visualized. Mild (1+) pulmonic valve insufficiency. Great Vessels Normal sized aortic root. Pericardium/Pleural Small to moderate posterior pericardial effusion. MMode/2D Measurements & Calculations LVIDd: 4.0 cm IVSd: 1.2 cm LVOT diam: 1.7 cm LVIDs: 3.0 cm LVPWd: 1.2 cm LVOT area: 2.3 cm2 FS: 25.3 % Ao root diam: 2.9 cm LAV(MOD-bp): 86.7 ml LVAd ap4: 17.9 cm2 LAV(MOD-bp) Indexed: 46.0 ml/m2 LVLd ap4: 6.5 cm LAV(MOD-sp2): 88.4 ml EDV(MOD-sp4): 42.5 ml LAV(MOD-sp4): 84.6 ml EDV(sp4-el): 41.6 ml LVAs ap4: 12.1 cm2 LVLs ap4: 5.9 cm ESV(MOD-sp4): 21.5 ml ESV(sp4-el): 21.0 ml EF(MOD-sp4): 49.3 % EF(sp4-el): 49.6 % SV(MOD-sp4): 20.9 ml SV(sp4-el): 20.6 ml LA A4 area: 25.6 cm2 LA dimension(2D): 4.2 cm RA A4 area: 23.5 cm2 Time Measurements MV dec time: 0.14 sec Doppler Measurements & Calculations MV E max cirara: 125.4 cm/sec MV V2 max: 132.6 cm/sec Ao V2 max: 210.5 cm/sec MV max P.1 mmHg Ao max P.8 mmHg MV V2 mean: 81.5 cm/sec Ao V2 mean: 156.4 cm/sec MV mean P.2 mmHg Ao mean P.0 mmHg MV V2 VTI: 22.2 cm Ao V2 VTI: 42.4 cm MVA(VTI): 3.3 cm2 AV (velocity ratio): 0.75 SHAI(I,D): 1.7 cm2 SHAI(V,D): 1.7 cm2 LV V1 max: 152.9 cm/sec SV(LVOT): 73.5 ml PA V2 max: 96.9 cm/sec LV V1 max P.4 mmHg PA V2 mean: 66.7 cm/sec LV V1 mean P.4 mmHg LV V1 mean: 121.1 cm/sec LV V1 VTI: 31.7 cm TR max ciarra: 286.2 cm/sec TR max P.8 mmHg ECHO/Echo Complete Interpretation Summary Mild concentric left ventricular hypertrophy. The left ventricular ejection fraction is 35 %. Diastolic function is indeterminate. There is severe biatrial dilatation. Moderate (2+) mitral valve insufficiency. Moderate (2+) tricuspid valve insufficiency. Right ventricular systolic pressure estimated to be 38 mmHg. Moderate diffuse aortic valve calcification. Mild aortic stenosis. Severe mitral annular calcification. Small to moderate posterior pericardial effusion. Ordering Physician: Robyn Serrato Referring Physician: Robyn Serrato Performed By: Josette Lieberman RCS
--- NOTE | 2023-07-01 08:30 | PFTCOMP_ITS ---
COMPLETE PULMONARY FUNCTION TEST INTERPRETATION Brief HPI: Patient is an 87-year-old female, currently under the care of Dr. Serrato, who presents to [facility] for complete pulmonary function tests secondary to diagnosis of dyspnea. Respiratory therapist reports good effort and reproducible results. Interpretation: Forced expiration spirometry shows no large airways obstructive ventilatory defect with an FEV1 of 108% predicted. There is no significant bronchodilator response by strict ATS criteria. Spirograms are of good quality and plateau normally. The respiratory flow volume loop shows a normal pattern. Lung volumes by body plethysmography show a normal total lung capacity at 4.98 L, 95% predicted. All other lung volumes are within normal limits. Diffusion capacity by carbon monoxide is normal at 75% predicted. The airway resistance is slightly elevated. No previous pulmonary function tests were available for review. Impression: These pulmonary function tests are within normal limits
== END | disposition home or self-care (01) ==
LOC: CVS 12:31
PROVIDERS: PCP Family Medicine; Referring Provider Family Medicine; Visit Provider Family Medicine
DX: R06.09 Other forms of dyspnea (principal); J44.9 Chronic obstructive pulmonary disease, unspecified
CPT/HCPCS: 93306; 94060; 94726; 94729

== ENCOUNTER 2023-08-05 02:40 | Emergency (ER) | payer MEDICARE, SELFPAY ==
[2023-08-05 02:41] VITALS: BP 161/112; PULSE 76; RESP 18; TEMP 36.2; O2SAT 99; BMI 29.2
--- NOTE | 2023-08-05 02:44 | ED.RN ---
Notified Dr Burton of patients symptoms and concern for stroke. Neg stroke scale per EMS. Pt is dizzy and had an episode of blurred vision.
[2023-08-05 03:00] VITALS: O2SAT 99
--- NOTE | 2023-08-05 03:00 | CT_ITS ---
We are attempting to reach an attending provider to discuss findings. An addendum with communication details will be sent when the communication is complete. EXAM: CT HEAD WITHOUT INTRAVENOUS CONTRAST CLINICAL INDICATION: dizziness TECHNIQUE: Multiple axial images were obtained of the head without intravenous contrast. This CT exam was performed using one or more of the following dose reduction techniques: automated exposure control, adjustment of the mA and/or kV according to patient size, and/or use of iterative reconstruction technique. COMPARISON: Head CT 12/24/2021 and MRI brain 04/29/2022 FINDINGS: BRAIN AND EXTRA-AXIAL SPACES: Diffuse cerebral volume loss. Periventricular small vessel ischemic changes. 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 No intra- or extra-axial hemorrhage. No intracranial mass or mass effect. Posterior fossa structures are unremarkable. No hydrocephalus. Basal cisterns are patent. BONES/JOINTS: Unremarkable. No discrete lytic or blastic abnormalities. VASCULATURE: Vascular calcifications. SINUSES: Unremarkable as visualized. Clear. MASTOID AIR CELLS: Unremarkable. Clear. ORBITS: Visualized globes, extraocular muscles, optic nerves and retrobulbar fat appear unremarkable. ASPECTS: 10 CT/Brain/Head without Contrast IMPRESSION: 1. No acute intracranial abnormalities. 2. Age-related changes. 3. 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 Electronically Signed: Rito Johnson MD at 4:01 EST ,
[2023-08-05 03:09] LABS: Absolute Neutrophil Count 3.7 X10^3/uL (2.0-7.7); Basophil# 0.06 X10^3/uL; Basophil% 0.9 % (0-1); Eosinophil# 0.17 X10^3/uL; Eosinophils% 2.4 % (0-5); Hematocrit 44.2 % (37-47); Hemoglobin 14.7 g/dL (12.0-15.0); Lymphocyte % 34.1 % (19-41); Mean Corp Hgb Conc 33.3 g/dL (32-36); Mean Corpuscular Hgb 32.2 pg (27.0-32.0); Mean Corpuscular Volume 96.9 fL (81-99); Mean Platelet Vol. 9.4 fl (6.2-12.0); Monocyte# 0.73 X10^3/uL; Monocyte% 10.4 % (0-10); NRBC Flagged by Analyzer 0 % (0-5); Neutrophil # 3.67 X10^3/uL (2.7-7.7); Neutrophil % 52.1 % (47-70); Platelet Count 200 K/mm3 (150-450); RBC Distribution Width CV 12.4 % (11.6-14.6); RBC Distribution Width SD 44.3 fl (35.1-43.9); Red Blood Count 4.56 M/mm3 (4.2-5.4)
[2023-08-05 03:28] LABS: Anion Gap 8 (5-15); BUN 33 mg/dL (7-18); BUN/Creat Ratio 35.5 RATIO (10-20); Calcium,Total 9.2 mg/dL (8.5-10.1); Chloride 105 mmol/L (98-107); Creatinine, Serum 0.93 mg/dL (0.55-1.02); EST Glomerular Filtration Rate 61 mL/min (>60); Est Glom Filt Rate - Afr Amer 74 mL/min (>60); Glucose 136 mg/dL (74-106); Potassium 3.5 mmol/L (3.5-5.1); Sodium Level 143 mmol/L (136-145); Troponin-I HS 12 pg/mL (3.0-54.0)
[2023-08-05] MEDS: LORazepam 2 MG/ML Syringe 1 MG IV (03:31)
--- NOTE | 2023-08-05 03:40 | RAD_ITS ---
EXAM: XR CHEST, 1 VIEW CLINICAL INDICATION: chest pain TECHNIQUE: Frontal view of the chest. COMPARISON: Two-view chest 01/12/2022 FINDINGS: LUNGS AND PLEURAL SPACES: Unremarkable. No consolidation or edema. No pneumothorax. No effusion. HEART: Mild enlargement of the cardiac silhouette. MEDIASTINUM: Central airways and mediastinal contour are unremarkable. BONES/JOINTS: Degenerative changes of the spine. Old right posterior rib fractures. SOFT TISSUES: Unremarkable. TUBES, LINES AND DEVICES: Loop recorder overlying the left side of the heart. RAD/Chest 1 View (Portable) IMPRESSION: No acute findings in the chest. Electronically Signed: Rito Johnson MD at 4:27 EST ,
--- NOTE | 2023-08-05 03:52 | EX.ED.DYSGE1 ---
HPI History of Present Illness Chief Complaint: Dizziness Narrative Narrative: 87-year-old female presenting with dizziness. She states she woke up from sleep about an hour prior to arrival and felt like the room was spinning. She was able to get herself to the restroom but it was very difficult for her. She states she did not fall. He was able to get to the restroom to use restroom. Patient states he is never had vertiginous dizziness this before. Denies headache, visual complaints, slurred speech, inability his extremities, numbness or tingling. Patient denies chest pain or shortness of breath. Patient has history of paroxysmal A-fib and a flutter but is not anticoagulated. She has history of nontraumatic intracranial hemorrhages in the past. She states that nobody has ever told her why she has had these. She states that the vertiginous dizziness was not associated with this. Patient states that she felt shaky earlier. 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) Paroxysmal atrial fibrillation Shortness of breath Status post placement of implantable loop recorder Syncope unusual tiredness Home Medications calcium carbonate 600 mg-vitamin D3 5 mcg (200 unit) tablet 1 ea PO DAILY SUPPLEMENT 09/17/16 [History Last Taken 04/26/17 08:00 1] ezetimibe 10 mg tablet 10 mg PO DAILY #90 tabs 11/09/22 [Rx Last Taken Unknown] hydrochlorothiazide 12.5 mg capsule 12.5 mg PO DAILY #90 caps 11/09/22 [Rx Last Taken Unknown] carvedilol 3.125 mg tablet 3.125 mg PO BID #180 tabs 06/22/23 [Rx Last Taken Unknown] losartan 25 mg tablet 25 mg PO BID #180 tabs 06/22/23 [Rx Last Taken Unknown] furosemide 40 mg tablet (Lasix) 40 mg PO DAILY #30 tabs 07/20/23 [Rx Last Taken Unknown] potassium chloride 20 mEq tablet,extended release 20 meq PO DAILY #30 tabs 07/20/23 [Rx Last Taken Unknown] meclizine 25 mg tablet 25 mg PO TID PRN dizziness #30 tabs 08/05/23 [Rx Last Taken Unknown] Allergy/AdvReac Type Severity Reaction Status Date / Time latex Allergy Rash Verified 04/27/23 13:32 atorvastatin AdvReac Severe elevated Verified 04/27/23 13:32 LFT's codeine AdvReac Severe Syncope Verified 04/27/23 13:32 Sulfa (Sulfonamide AdvReac Severe Became Verified 04/27/23 13:32 Antibiotics) cold and clammy adhesive tape AdvReac Intermediate Rash Verified 04/27/23 13:32 gemfibrozil AdvReac Intermediate Myalgias Verified 04/27/23 13:32 levofloxacin AdvReac Intermediate restless Verified 04/27/23 13:32 leg movements morphine AdvReac Vomiting Verified 04/27/23 13:32 oxycodone AdvReac Vomiting Verified 04/27/23 13:32 tramadol AdvReac Other Verified 04/27/23 13:32 Family History Father Diabetes Heart disease Brother Heart disease Mother Heart disease Surgical History History of hip replacement History of knee replacement History of radiofrequency ablation procedure for cardiac arrhythmia (~2003) Social History household members: none Smoking Status: Never smoker second hand exposure: No alcohol intake: never substance use type: does not use what type of physical activity do you participate in: none denis/gnosticism: Gnosticism seatbelt use: always ROS ROS ED Constitutional Constitutional ED: Denies chills, fever(s) or sweats Eyes Eyes: Denies blurry vision or change in vision ENT ENT ED: Reports other Details: Vertiginous dizziness ; Denies ear pain or sore throat Cardiovascular Cardiovascular: Denies chest pain, palpitations or racing heartbeat Respiratory/Chest Respiratory/Chest: Denies cough, dyspnea or sputum Gastrointestinal Gastrointestinal: Denies abdominal pain, constipation, diarrhea, nausea or vomiting Genitourinary Genitourinary ED: Denies dysuria, hematuria or urinary frequency Musculoskeletal Musculoskeletal: Denies arthralgias, myalgias or neck pain Integumentary Denies abscess, Abrasions or rash Neurologic Neurologic: Denies headache(s), paresthesias or weakness Psychiatric Psychiatric: Denies anxiety, depression, suicidal ideation or suicidal thoughts Endocrine Endocrinology: Denies polydipsia or polyuria EXAM Physical Exam Const Vital Signs: 08/05/23 02:41 08/05/23 02:50 08/05/23 03:00 Temperature 97.1 F L Temperature Source Temporal Pulse Rate 76 Respiratory Rate 18 Respiratory Effort Normal Non-Labored Respiratory Pattern Normal Blood Pressure 161/112 H Blood Pressure Mean 128 Pulse Ox 99 99 Oxygen Delivery Method Room Air Room Air Oxygen Flow Rate (L/min) 08/05/23 04:06 08/05/23 05:32 Temperature Temperature Source Pulse Rate 88 86 Respiratory Rate 15 17 Respiratory Effort Respiratory Pattern Blood Pressure 151/93 H 189/95 H Blood Pressure Mean 112 126 Pulse Ox 97 98 Oxygen Delivery Method Nasal Cannula Room Air Oxygen Flow Rate (L/min) 2 MDM MDM MDM Narrative Medical decision making narrative: 87-year-old female presenting with vertiginous dizziness. Denies headache, visual complaints. No paresthesias. No difficulty moving extremities. She states he felt shaky before arrival. Patient with history of A-fib not anticoagulated. Differential includes dysrhythmia, ACS, pneumonia, UTI, dehydration, electro normalities, anemia, vertigo, intracranial hemorrhage. I am not able to reproduce the vertigo on examination although she describes it as vertiginous. Patient given meclizine. Patient also has history of nontraumatic intracranial hemorrhage in the past. She states that she is not sure why she has had these but it has been more than once. Patient states she has never been told why this occurs. She is not anticoagulated currently. CT brain will be ordered to rule out intracranial hemorrhage, acute stroke. CBC to assess white blood cell count, hemoglobin, platelets. BMP to assess renal function, electrolytes, glucose, anion gap. EKG and high-sensitivity troponin rule out ischemia/dysrhythmia. Chest x-ray looked normal. I was called to the room as the patient became shaky. Initially nursing thought this was a seizure but the patient is able to answer questions while she is doing this. It is unclear the result. She feels anxious. She is given Ativan IV. She was taken over head CT which was negative. Chest x-ray also within normal limits on my interpretation. High-sensitivity troponin came back at 12. Patient's dizziness improved. Patient was helped to the bedside commode by family. Urinalysis ultimately was negative I discussed negative workup with family and discussed options of admission for observation versus going home and they felt comfortable taking home although she was weak. She will be given a prescription for meclizine. Return precautions were discussed. Impression: 1. Dizziness 2. anxiety Lab Data Attestation: I reviewed the patient's lab results. Labs: Laboratory Results - last 24 hr 08/05/23 08/05/23 02:56 06:00 WBC 7.0 RBC 4.56 Hgb 14.7 Hct 44.2 MCV 96.9 MCH 32.2 H MCHC 33.3 RDW Std Deviation 44.3 H RDW Coeff of [place] 12.4 Plt Count 200 MPV 9.4 Immature Gran % (Auto) 0.100 Neut % (Auto) 52.1 Lymph % (Auto) 34.1 [place] % (Auto) 10.4 H Eos % (Auto) 2.4 Baso % (Auto) 0.9 Absolute Neuts (auto) 3.7 Absolute Lymphs (auto) 2.40 Nucleated RBC % 0 Sodium 143 Potassium 3.5 Chloride 105 Carbon Dioxide 30.0 Anion Gap 8 BUN 33 H Creatinine 0.93 Estim Creat Clear Calc 41.40 Est GFR (MDRD) Af Amer 74 Est GFR (MDRD) Non-Af 61 BUN/Creatinine Ratio 35.5 H Glucose 136 H Calcium 9.2 Troponin I High Sens 12 Urine Color Yellow Urine Clarity Clear Urine pH 8.0 Ur Specific [place] 1.010 Urine Protein Negative Urine Glucose (UA) Normal Urine Ketones Negative Urine Occult Blood Negative Urine Nitrite Negative Urine Bilirubin Negative Urine Urobilinogen Normal Ur Leukocyte Esterase 25 H Urine RBC 0 SEEN Urine WBC 0-5 SEEN Ur Squamous Epith Cells 0-5 SEEN Urine Bacteria 0 SEEN Urine Mucus 0 SEEN Radiography Diagnostic Testing: Clinical Impression(s) from Imaging Studies Brain CT 08/05/23 03:00 IMPRESSION: 1. No acute intracranial abnormalities. 2. Age-related changes. 3. 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 Electronically Signed: Rito Johnson MD at 4:01 EST , ADDENDUM: 08/05/23 0408 IMPRESSION: 1. No acute intracranial abnormalities. 2. Age-related changes. 3. 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 N.B. : The above Results were Read Back by Rito Johnson MD to Sudhir Burton DO, and understanding confirmed on 08/05/2023 04:01:49 (ET). Electronically Signed: Rito Johnson MD at 4:01 EST Reading Location ID and State: [facility] / [place] Tel , Service support , Chest X-Ray 08/05/23 03:40 IMPRESSION: No acute findings in the chest. Electronically Signed: Rito Johnson MD at 4:27 EST Reading Location ID and State: [facility] / [place] Tel , Service support , Discharge Plan Triage Chief Complaint: Dizziness ED Provider: Sudhir Burton Dx/Rx/DC Orders Instructions: ED Dizziness, Uncertain Cause Prescriptions: New meclizine 25 mg tablet 25 mg PO TID PRN (Reason: dizziness) Qty: 30 0RF No Action carvedilol 3.125 mg tablet 3.125 mg PO BID Qty: 180 3RF losartan 25 mg tablet 25 mg PO BID Qty: 180 3RF calcium carbonate-vitamin D3 1 EACH tablet 1 ea PO DAILY Patient Comments: SUPPLEMENT hydrochlorothiazide 12.5 mg capsule 12.5 mg PO DAILY Qty: 90 3RF ezetimibe 10 mg tablet 10 mg PO DAILY Qty: 90 3RF furosemide [Lasix] 40 mg tablet 40 mg PO DAILY Qty: 30 11RF potassium chloride 20 mEq tablet extended release 20 meq PO DAILY Qty: 30 11RF Primary Care Provider: Robyn Serrato Referrals: Robyn Serrato DO [Primary Care Provider] - Disposition Disposition: Home, Self Care
[2023-08-05 04:06] VITALS: BP 151/93; PULSE 88; RESP 15; O2SAT 97
--- NOTE | 2023-08-05 04:11 | ED.RN ---
verified with dr maya that it is ok to give antivert prior to CT results. will perform dysphagia screening prior to administration.
[2023-08-05] MEDS: Meclizine HCl 25 MG Tablet PO (04:21)
--- OUTSIDE RECORDS SUMMARY | 2023-08-05 04:22 | XMS RPT_ITS | CCD ---
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 Name Role Phone MARISABEL, BRIAN E Unavailable Unavailable MARISABEL, BRIAN E Unavailable Unavailable MARISABEL, BRIAN E Unavailable Unavailable MARISABEL, BRIAN E Unavailable Unavailable MARISABEL, BRIAN E Unavailable Unavailable MARISABEL, BRIAN E Unavailable Unavailable MARISABEL, BRIAN E Unavailable Unavailable MARISABEL, BRIAN E Unavailable Unavailable MARISABEL, BRIAN E Unavailable Unavailable SELF, SELF Referring Unavailable ERICKA SMITH Attending Unavailable DR JESS GEORGE MD Primary Care Physician Jess George MD Unavailable Raciel Ribeiro Unavailable Adrián Iqbal Unavailable Jess George MD Unavailable JESSICA Blackmon LPN Unavailable Unavailable Unavailable Unavailable Allergies Allergy Classification Reported Allergen(s) Allergy Type Date of Onset Reaction(s) Facility (1 source) Adhesive Tape; Translations: [ADHESIVE TAPE (ROSINS)] Propensity to adverse reactions (disorder) 06-18-20 08 [facility] Repository (2 sources) codeine; Translations: [CODEINE] Drug Allergy 08-25-19 [facility] Repository (1 source) Latex; Translations: [LATEX] Propensity to adverse reactions to drug (disorder) 10-04-19 10 [facility] Repository (1 source) Sulfonamides (Antibiotic); Translations: [SULFA (SULFONAMIDE ANTIBIOTICS)] Propensity to adverse reactions to drug (disorder) 08-25-19 [facility] Repository (1 source) Sulfamethoxazole ; Translations: [sulfamethoxazol e] Drug Allergy Clammy skin (finding) [facility] (3 sources) Lovastatin; Translations: [Lovastatin *ANTIHYPERLIPIDE MICS*] Drug Allergy [facility] Work Phone: Medications Current Medications Medication Drug Class(es) Dates Sig (Normalized) Sig (Original) Calcium (4 sources) Phosphate Binder, Calcium Start: 08-28-2010 take 1 tablet by mouth once daily Calcium 600+D Dose = 1 tab(s), Oral, Daily, 0 Refill(s), current med (Hx) Start Date: 08/28/10 Status: Ordered Completed/Discontinued Medications Medication Drug Class(es) Dates Sig (Normalized) Sig (Original) acetaminophen 500 mg / HYDROcodone bitartrate 5 mg oral tablet (3 sources) Opioid Agonist Start: 05-08-2008 End: 05-08-2008 take 1 tablet by mouth every six hours as needed VICODIN, 5-500MG (Oral Tablet) 1 (one) Tablet q6hrs prn for 0 days Quantity: 20 {Tablet} Refills: 0 Ordered: 08-May-2008 Bell Joseph Start : 08-May-2008 End : 08-May-2008 Discontinued acetaminophen 650 mg / propoxyphene napsylate 100 mg oral tablet (3 sources) Opioid Agonist Start: 05-08-2008 End: 11-19-2008 DARVOCET-N 100, 100-650MG (Oral Tablet) 1 Tablet q 6-8 hr prn for pain for 0 days Quantity: 30 {Tablet} Refills: 0 Ordered: 08-May-2008 JESSICA Blackmon LPN Start : 08-May-2008 End : 19-Nov-2008 Inactive amLODIPine 2.5 mg oral tablet (3 sources) Dihydropyridine Calcium Channel Jeanne End: 10-11-2007 take 1 tablet by mouth once daily NORVASC, 2.5MG (Oral Tablet) 1 QD for 0 days Refills: 0 Ordered: 10-Apr-2008 Reva Patton End : 11-Oct-2007 Discontinued amoxicillin 875 mg / clavulanate 125 mg oral tablet (3 sources) Penicillin-class Antibacterial Start: 07-06-2007 End: 10-11-2007 take 1 tablet by mouth twice daily AUGMENTIN, 875-125MG (Oral Tablet) 1 Tablet Twice daily for 0 days Quantity: 20 {Tablet} Refills: 0 Ordered: 06-Jul-2007 Reva Patton Start : 06-Jul-2007 End : 11-Oct-2007 Discontinued aspirin 81 mg oral tablet (3 sources) Platelet Aggregation Inhibitor, Nonsteroidal Anti-inflammatory Drug take 1 tablet by mouth once daily ASPIRIN LOW DOSE, 81MG (Oral Tablet) 1 QD for 0 days Refills: 0 Ordered: 13-Jun-2009 Beatrice Morin RN Active cefdinir 300 mg oral capsule (3 sources) Cephalosporin Antibacterial Start: 10-29-2011 End: 12-07-2011 take 1 capsule by mouth twice daily CEFDINIR, 300MG (Oral Capsule) 1 Capsule bid for 0 days Quantity: 20 {Capsule} Refills: 0 Ordered: 07-Dec-2011 JESSICA Blackmon LPN Start : 29-Oct-2011 End : 07-Dec-2011 Inactive celecoxib 200 mg oral capsule (3 sources) Nonsteroidal Anti-inflammatory Drug Start: 05-15-2008 End: 11-19-2008 take 1 capsule by mouth once daily CELEBREX, 200MG (Oral Capsule) 1 (one) Capsule daily for 0 days Quantity: 30 {Capsule} Refills: 0 Ordered: 15-May-2008 JESSICA Blackmon LPN Start : 15-May-2008 End : 19-Nov-2008 Inactive CENTRUM SILVER (Oral Tablet) (3 sources) CENTRUM SILVER (Oral Tablet) for 0 days Refills: 0 Ordered: 13-Jun-2009 Beatrice Morin RN Active ciprofloxacin 500 mg oral tablet (6 sources) Quinolone Antimicrobial Start: 11-05-2015 End: 11-12-2015 take 1 tablet by mouth twice daily CIPROFLOXACIN HCL, 500MG (Oral Tablet) 1 (one) Tablet bid for 7 days Quantity: 14 {Tablet} Refills: 0 Ordered: 05-Nov-2015 Bell Joseph Start : 05-Nov-2015 End : 12-Nov-2015 Inactive Problems Active Problems Problem Classification Problem Date Documented Da te Episodic/Chronic Acute cerebrovascular disease (2 sources) Intracranial hemorrhage; Translations: [Nontraumatic intracranial hemorrhage, unspecified] Onset: 12-27-2021 Chronic Cardiac dysrhythmias (20 sources) Paroxysmal atrial fibrillation; Translations: [Atrial flutter] Onset: 04-27-2017 Resolved: 12-16-2015 Chronic Past or Other Problems Problem Classification Problem Date Documented Da te Episodic/Chronic Acute bronchitis (3 sources) Acute bronchitis; Translations: [Bronchitis, acute] Resolved: 09-14-2015 09-14-2015 Episodic E Codes: Fall (9 sources) Fall in home; Translations: [Fall at home] Resolved: 09-14-2015 09-14-2015 Episodic Results Test Name Value Interpretation Reference Range Facil ity Vital Signs Date Time Vital Sign Value Performing Clinician Facility 12-28-2021 08:31-0400 Body temperature 97.7 [degF] DR JAGDEEP LONG MD [facility] 12-28-2021 08:31-0400 Diastolic blood pressure 80 mm[Hg] DR JAGDEEP LONG MD [facility] 12-28-2021 08:31-0400 Heart rate 117 /min DR JAGDEEP LONG MD [facility] 12-28-2021 08:31-0400 Mean blood pressure 92 mm[Hg] DR JAGDEEP LONG MD [facility] 12-28-2021 08:31-0400 Reason For Taking VItal Signs DR JAGDEEP LONG MD [facility] 12-28-2021 08:31-0400 Respiratory rate 18 /min DR JAGDEEP LONG MD [facility] 12-28-2021 08:31-0400 Systolic blood pressure 116 mm[Hg] DR JAGDEEP LONG MD [facility] 12-28-2021 03:53-0400 Body temperature 97.7 [degF] DR JAGDEEP LONG MD [facility] 12-28-2021 03:53-0400 Diastolic blood pressure 68 mm[Hg] DR JAGDEEP LONG MD [facility] 12-28-2021 03:53-0400 Heart rate 105 /min DR JAGDEEP LONG MD [facility] 12-28-2021 03:53-0400 Mean blood pressure 88 mm[Hg] DR JAGDEEP LONG MD [facility] 12-28-2021 03:53-0400 Reason For Taking VItal Signs DR JAGDEEP LONG MD [facility] 12-28-2021 03:53-0400 Respiratory rate 18 /min DR JAGDEEP LONG MD [facility] 12-28-2021 03:53-0400 Systolic blood pressure 128 mm[Hg] DR JAGDEEP LONG MD [facility] 12-27-2021 22:31-0400 Body temperature 98.06 [degF] DR JAGDEEP LONG MD [facility] 12-27-2021 22:31-0400 Diastolic blood pressure 74 mm[Hg] DR JAGDEEP LONG MD [facility] 12-27-2021 22:31-0400 Heart rate 101 /min DR JAGDEEP LONG MD [facility] 12-27-2021 22:31-0400 Mean blood pressure 88 mm[Hg] DR JAGDEEP LONG MD [facility] 12-27-2021 22:31-0400 Reason For Taking VItal Signs DR JAGDEEP LONG MD [facility] 12-27-2021 22:31-0400 Respiratory rate 18 /min DR JAGDEEP LONG MD [facility] 12-27-2021 22:31-0400 Systolic blood pressure 116 mm[Hg] DR JAGDEEP LONG MD [address] [place] [address] 12-27-2021 05:28-0400 Heart rate 109 /min DR JAGDEEP LONG MD [facility] 12-27-2021 05:10-0400 Diastolic Blood Pressure NBP [address] JAGDEEP LONG MD [facility] 12-27-2021 05:10-0400 Systolic Blood Pressure NBP [address] JAGDEEP LONG MD [facility] 12-27-2021 05:03-0400 Diastolic Blood Pressure NBP [address] JAGDEEP LONG MD [facility] 12-27-2021 05:03-0400 Systolic Blood Pressure NBP [address] JAGDEEP LONG MD [facility] 12-27-2021 04:25-0400 Diastolic Blood Pressure NBP [address] JAGDEEP LONG MD [facility] 12-27-2021 04:25-0400 Mean blood pressure 84 mm[Hg] DR JAGDEEP LONG MD [facility] 12-27-2021 04:25-0400 Systolic Blood Pressure NBP [address] JAGDEEP LONG MD [facility] 12-26-2021 23:21-0400 Mean blood pressure 104 mm[Hg] DR JAGDEEP LONG MD [facility] 12-26-2021 19:49-0400 Mean blood pressure 95 mm[Hg] DR JAGDEEP LONG MD [facility] 12-25-2021 14:05-0400 Signs/Symptoms Transfusion Reaction DR JAGDEEP LONG MD [facility] 12-25-2021 11:45-0400 Signs/Symptoms Transfusion Reaction DR JAGDEEP LONG MD [facility] 12-25-2021 09:45-0400 Signs/Symptoms Transfusion Reaction DR JAGDEEP LONG MD [facility] 12-25-2021 09:04-0400 Heart rate 101 /min DR JAGDEEP LONG MD [facility] 12-25-2021 08:27-0400 Heart rate 115 /min DR JAGDEEP LONG MD [facility] 12-25-2021 03:01-0400 Heart rate 103 /min DR JAGDEEP LONG MD [facility] 12-25-2021 00:08-0400 Heart rate 121 /min DR JAGDEEP LONG MD [facility] 12-24-2021 23:18-0400 Heart rate 100 /min DR JAGDEEP LONG MD [facility] 12-24-2021 20:48-0400 Body height 167.[address] JAGDEEP LONG MD [facility] 12-24-2021 20:48-0400 Body weight 81.[address] JAGDEEP LONG MD [facility] 12-24-2021 20:48-0400 Body weight 29.12 kg/m2 DR JAGDEEP LONG MD [facility] 12-16-2015 08:31-0400 Body height 165.1 cm JESSICA Blackmon LPN [facility]; [facility] Work Phone: 12-16-2015 08:31-0400 Body mass index (BMI) [Ratio] 29.29 kg/m2 JESSICA Blackmon LPN [facility] Work Phone: 12-16-2015 08:31-0400 Body surface area Derived from formula 1.87 m2 JESSICA Blackmon LPN [facility] Work Phone: 12-16-2015 08:31-0400 Body temperature 97.1 [degF] JESSICA Blackmon LPN [facility] Work Phone: Encounters Encounter Date Encounter Type Care Provider Facility Start: 12-24-2021 End: 12-28-2021 Evaluation and management of inpatient DR JAGDEEP LONG MD [facility] Start: 08-21-2019 Patient encounter procedure SELF SELF Facility:[facility] Start: 03-31-2018 End: 03-31-2018 Patient encounter BRIAN PETIT [facility] Start: 03-30-2018 End: 03-30-2018 Patient encounter BRIAN PETIT [facility] Start: 03-22-2018 End: 03-22-2018 Patient encounter BRIAN PETIT [facility] Start: 03-22-2018 End: 03-22-2018 Patient encounter BRIAN PETIT [facility] Start: 07-20-2017 End: 07-20-2017 Patient encounter BRIAN PETIT [facility] Start: 04-27-2017 End: 04-28-2017 Patient encounter BRIAN PETIT [facility] Start: 04-27-2017 End: 04-28-2017 Patient encounter BRIAN PETIT [facility] Start: 12-16-2015 End: 12-16-2015 Office outpatient visit 25 minutes Jess George MD Work Phone: [facility] Start: 11-25-2015 End: 11-25-2015 Office outpatient visit 15 minutes Jess George MD Work Phone: [facility] Start: 11-05-2015 End: 11-05-2015 Office outpatient visit 15 minutes Jess George MD Work Phone: [facility] Start: 09-16-2015 End: 09-16-2015 Office outpatient visit 25 minutes Jess George MD Work Phone: [facility] Start: 07-24-2014 End: 07-24-2014 Office outpatient visit 10 minutes Jess George MD Work Phone: [facility] Start: 06-12-2014 End: 06-12-2014 Office outpatient visit 40 minutes Jess George MD Work Phone: [facility] Start: 10-10-2013 End: 10-10-2013 Patient encounter procedure Jess George MD Work Phone: [facility] Start: 10-06-2013 End: 10-06-2013 Patient encounter procedure Jess George MD Work Phone: [facility] Start: 10-06-2013 End: 10-06-2013 Patient encounter procedure Jess George MD Work Phone: [facility] Start: 09-26-2013 End: 09-26-2013 Patient encounter procedure Jess George MD Work Phone: [facility] Start: 07-24-2013 End: 07-24-2013 Patient encounter procedure Jess George MD Work Phone: [facility] Start: 04-03-2013 End: 04-03-2013 Phone Encounter Jess George MD Work Phone: [facility] Start: 10-25-2012 End: 10-25-2012 Patient encounter procedure Jess George MD Work Phone: [facility] Start: 06-28-2012 End: 06-28-2012 Patient encounter procedure Jess George MD Work Phone: [facility] Start: 02-29-2012 End: 02-29-2012 Patient encounter procedure Jess George MD Work Phone: [facility] Start: 12-07-2011 End: 12-07-2011 Patient encounter procedure Jess George MD Work Phone: [facility] Start: 11-02-2011 End: 11-02-2011 Patient encounter procedure Jess George MD Work Phone: [facility] Start: 10-29-2011 End: 10-29-2011 Patient encounter procedure Jess George MD Work Phone: [facility] Start: 10-22-2011 End: 10-22-2011 Patient encounter procedure Jess George MD Work Phone: [facility] Start: 10-19-2011 End: 10-19-2011 Patient encounter procedure Jess George MD Work Phone: [facility] Start: 06-29-2011 End: 06-29-2011 Patient encounter procedure Jess George MD Work Phone: [facility] Start: 02-20-2011 End: 02-20-2011 Patient encounter procedure Jess George MD Work Phone: [facility] Start: 10-21-2010 End: 10-21-2010 Patient encounter procedure Jess George MD Work Phone: [facility] Start: 09-15-2010 End: 09-15-2010 Patient encounter procedure Jess George MD Work Phone: [facility] Start: 08-28-2010 End: 08-28-2010 Patient encounter procedure Jess George MD Work Phone: [facility] Start: 11-21-2009 End: 11-21-2009 Patient encounter procedure Jess George MD Work Phone: [facility] Start: 06-13-2009 End: 06-13-2009 Patient encounter procedure Jess George MD Work Phone: [facility] Start: 02-19-2009 End: 02-19-2009 Patient encounter procedure Jess George MD Work Phone: [facility] Start: 11-19-2008 End: 11-19-2008 Patient encounter procedure Jess George MD Work Phone: [facility] Start: 05-15-2008 End: 05-15-2008 Office outpatient visit 25 minutes Jess George MD Work Phone: [facility] Start: 05-08-2008 End: 05-08-2008 Office outpatient visit 25 minutes Jess George MD Work Phone: [facility] Start: 04-24-2008 End: 04-24-2008 Office outpatient visit 15 minutes Jess George MD Work Phone: [facility] Start: 04-12-2008 End: 04-12-2008 Office outpatient visit 25 minutes Jess George MD Work Phone: [facility] Start: 04-10-2008 End: 04-10-2008 Office outpatient visit 15 minutes Jess George MD Work Phone: [facility] Start: 02-21-2008 End: 02-21-2008 Patient encounter procedure Jess George MD Work Phone: [facility] Start: 02-07-2008 End: 02-07-2008 Patient encounter procedure Jess George MD Work Phone: [facility] Start: 10-11-2007 End: 10-11-2007 Patient encounter procedure Jess George MD Work Phone: [facility] Start: 07-11-2007 End: 07-11-2007 Office outpatient visit 10 minutes Jess George MD Work Phone: [facility] Start: 07-06-2007 End: 07-06-2007 Patient encounter procedure Jess George MD Work Phone: [facility] Start: 02-10-2007 End: 02-10-2007 Patient encounter procedure Jess George MD Work Phone: [facility] Start: 02-07-2007 End: 02-07-2007 Patient encounter procedure Jess George MD Work Phone: [facility] Start: 09-28-2006 End: 09-28-2006 Patient encounter procedure Jess George MD Work Phone: [facility] Start: 09-10-2006 End: 09-10-2006 Patient encounter procedure Jess George MD Work Phone: [facility] Start: 09-09-2006 End: 09-09-2006 Historical Summary Jess George MD Work Phone: [facility] Ophthalmic examinati on and evaluation Jess George MD Work Phone: [facility]; [facility] Work Phone: End: 12-16-2015 Patient encounter procedure JESSICA Neymar WRIGHT [facility] Work Phone: Procedures Date Procedure Procedure Detail Performing Clinician Start: 10-02-2015 End: 10-02-2015 Dexa Bone Density Study (HP) Comments: See Note; NOTES: [facility] Imaging Services [address] [place] [address] Verdana 4d Dexa Bone Density Study (HP) MR#: [id number] Acct: [id number] Name: YEYO COFFMAN Rep #: [id number] : 1935 F [id number] From: Solo Wilburn MD PCP: Jess George MD Status: REG CLI Study: Dexa Bone Density Study (HP) Date of Exam: 10/02/15 Exam# [id number] Ordering Dr: Jess George MD STUDY: DUAL ENERGY X-RAY ABSORPTIOMETRY / DXA REASON FOR EXAM: Female, 80 years old. The patient is postmenopausal. Loss of height. TECHNIQUE: Bone Mineral Density (BMD) measurements of lumbar spine and bilateral hips were obtained. COMPARISON: Comparison is made with prior study dated September 28, 2000. FINDINGS: Lumbar Spine (L1-L4): g/cm2 (1.397) / T-score (1.6) / Z-score (3.4) Findings are suggestive of normal bone density with a low fracture risk. Left Femur Total: g/cm2 (1.023) / T-score (0.1) / Z-score (2.0) Left Femoral Neck: g/cm2 (0.922) / T-score (-0.8) / Z-score (1.2) Right Femur Total: g/cm2 (0.964) / T-score (-0.3) / Z-score (1.5) Right Femoral Neck: g/cm2 (0.875) / T-score (-1.2) / Z-score (0.9) The T-Scores on the most recent prior examination were: Lumbar Spine (L1-L4): There has been improvement of bone density since the previous examination. Left Femur Total: which represents a worsening of 1.5%. Right Femur Total: which represents a worsening of 0.2%. IMPRESSION: The patient is considered mildly osteopenic at the level of the right femoral neck as outlined below according to World Axel Organization (WHO) criteria with a low fracture risk. There has been worsening of bone density since the previous examination. Reference Information: The T-score is the number of standard deviations above or below the standard which is normal for young adults at their peak bone mineral density. The World Health Organization (WHO) interprets the T-scores as follows: Above -1 Normal bone density Between -1 and -2.5 Osteopenia Equal to / or below -2.5 Osteoporosis As a practical clinical guideline, osteopenia may be graded as follows: Mild -1 through -1.5 Moderate -1.6 through -2.0 Severe -2.1 through -2.4 The Z-score is the number of standard deviations above or below age-matched controls. A Z-score of less than -1.5 would be considered abnormal. References: 1. NIH Osteoporosis and Related Bone Diseases http://www.osteo.org 2. International Society for Clinical Densitometry http://www.iscd.org 3. National Osteoporosis Foundation http://www.nof.org Electronically Signed: Solo Wilburn MD at 11:05 EST Tel [phone], Service support [phone], CC: Jess George MD Finish Machine Tender: Signed Jess George MD Work Phone: Start: 09-26-2015 End: 09-26-2015 Bilat Scrn Digital AND CAD Comments: See Note; NOTES: [facility] Imaging Services [address] [place] [id number] Verdana 4d Bilat Scrn Digital AND CAD MR#: [id number] Acct: [id number] Name: YEYO COFFMAN Rep #: [id number] : 1935 F 80 From: Solo Wilburn MD PCP: Jess George MD Status: REG CLI Study: Bilat Scrn Digital AND CAD Date of Exam: 09/26/15 Exam# [id number] Ordering Dr: Jess George MD MAMMOGRAPHY - BILATERAL SCREENING REASON FOR EXAM: Female, 80 years old. Routine annual screening examination. PERTINENT HISTORY: Aunt with breast cancer. TECHNIQUE: Digital examination. Mediolateral oblique (MLO) and craniocaudad (CC) views of both breasts were obtained. CAD: CAD was performed on this study. COMPARISON: Comparison is made with prior examination dated May 17, 2012. FINDINGS: Breast Composition: There are scattered areas of fibroglandular density. There are no dominant masses or suspicious calcifications. No other significant abnormalities are identified. There has been no significant change since the prior study. IMPRESSION: Stable bilateral screening mammogram. Yearly follow-up mammogram recommended. (A) ASSESSMENT CATEGORY: BIRADS Category 1: Negative. A letter regarding these results will be sent to the patient by the facility within 30 days. Approximately 10% of breast cancers are not detected by mammography. A normal mammogram should not delay biopsy of a clinically suspicious abnormality. [id number] Electronically Signed: Solo Wilburn MD at 14:04 EST Tel [phone], Service support [phone], CC: Jess George MD Finish Machine Tender: Signed Jess George MD Work Phone: Start: 12-18-2014 End: 12-18-2014 Chest without Contrast Comments: See Note; NOTES: [facility] Imaging Services [address] [place] [address] CAT Scan Report MR#: [id number] Acct: [id number] Name: COFFMANLELA ABBOTTFORTINO Schaefer Rep #: [id number] : 1935 F 79 From: Hunter Torres DO PCP: Jess George MD Status: REG CLI Study: Chest without Contrast Date of Exam: 12/18/14 Exam# [id number] Ordering Dr: Raciel Ribeiro MD STUDY: CT CHEST WITHOUT CONTRAST REASON FOR EXAM: Female, 79 years old. Pneumonia last year. History of hypertension and A. fib. RADIATION DOSAGE (If Supplied By Facility): CTDIvol = ( 18.70 ) mGy, DLP = ( 695.20 ) mGycm TECHNIQUE: High resolution transaxial imaging was performed without the administration of intravenous contrast material. Multiplanar coronal and sagittal images were reformatted. COMPARISON: Chest, April 24, 2014. CT of the chest, December 18, 2013. FINDINGS: The lungs are well expanded. There is a vague infiltrate in the lower right upper lobe along the horizontal fissure. Which appears unchanged from the prior study thought to be scarring in the minimal apical pleural thickening which is stable. No new findings are seen. There is no demonstrated pleural abnormality. Again seen is a small Bochdalek's hernia of omental fat posterior and medial aspect of the right lower lung. Normal heart and pericardium. There are calcifications of the coronary arteries. Stable small mediastinal lymph nodes. Normal hilar regions. Normal unenhanced pulmonary arteries. Normal aorta arch and descending thoracic aorta. Stable degenerative changes of the thoracic spine. There is a right upper pole renal calculus which is unchanged. Remainder the abdomen is unremarkable. IMPRESSION: Stable findings when compared to December 18, 2013. Electronically Signed: Hunter Torres DO at 12:44 EDT Tel [phone], Service support [phone], CC: Jess George MD; Raciel Ribeiro MD Finish Machine Tender: Signed Raciel Ribeiro Work Phone: Start: 04-24-2014 End: 04-25-2014 Chest PA and Lateral Comments: See Note; NOTES: [facility] Imaging Services [address] [place] [id number] Radiology Report MR#: [id number] Acct: [id number] Name: YEYO COFFMAN Rep #: [id number] : 1935 F [id number] From: Jaya Maldonado PCP: Jess George MD Status: REG CLI Study: Chest PA and Lateral Date of Exam: 04/24/14 Exam# [id number] Ordering Dr: Raciel Ribeiro MD STUDY: X-RAY CHEST REASON FOR EXAM: Female, 78 years old. Pneumonia TECHNIQUE: PA and lateral COMPARISON: December 18, 2013 FINDINGS: The lungs are clear and expanded. There is no demonstrated pleural abnormality. Normal size heart. Normal mediastinum and henrique. Normal visualized pulmonary arteries. Normal visualized aortic arch and descending thoracic aorta. Normal visualized thoracic spine. There is an old healed fracture of the RIGHT eighth rib. There is no demonstrated abnormality of the visualized soft tissue structures of the upper abdomen. IMPRESSION: NO acute cardiopulmonary normality is are seen. Electronically Signed: Jaya Maldonado MD at 1:47 EDT , Service support [phone], CC: Jess George MD; Raciel Ribeiro MD Finish Machine Tender: Signed Raciel Ribeiro Work Phone: Start: 12-18-2013 End: 12-19-2013 Chest without Contrast Comments: See Note; NOTES: [facility] Imaging Services [address] [place] [address] CAT Scan Report MR#: [id number] Acct: [id number] Name: YEYO COFFMAN Rep #: [id number] : 1935 F 78 From: Earlene Arana MD PCP: Jess George MD Status: REG CLI Study: Chest without Contrast Date of Exam: 12/18/13 Exam# [id number] Ordering Dr: Raciel Ribeiro MD STUDY: CT CHEST WITHOUT CONTRAST REASON FOR EXAM: Female, 78 years old. Nodule RADIATION DOSAGE (If Supplied By Facility): CTDIvol = ( 16.09 ) mGy, DLP = ( 517.13 ) mGycm TECHNIQUE: High resolution transaxial imaging was performed without the administration of intravenous contrast material. COMPARISON: CT chest with contrast October 09, 2013 FINDINGS: The previously noted areas of patchy airspace consolidation throughout the right lung and left lower lobe have largely resolved. There are subtle areas of residual groundglass opacity. No definite new focal consolidation, pleural effusion, or pulmonary parenchymal nodules are identified. There is residual mixed groundglass opacity and scarring/consolidation in the anterior segment of the right upper lobe which is persistent though decreased compared to the prior exams. The heart is normal in size with extensive coronary artery and mitral annular calcifications. Normal mediastinum. Normal hilar regions. Normal unenhanced pulmonary arteries. Normal aorta arch and descending thoracic aorta. There are numerous small mediastinal and hilar lymph nodes again noted. None of the lymph nodes are pathologically enlarged and they are all largely stable compared to the prior CT. Normal osseous structures. There is no demonstrated abnormality of the visualized upper abdomen. IMPRESSION: 1. Interval near resolution of previously noted patchy multifocal areas of consolidation throughout the lungs bilaterally. Continued interval followup in 3 months is suggested to ensure resolution of the opacity in the anterior right upper lobe. 2. Coronary artery disease. Electronically Signed: Earlene Arana MD at 0:52 EDT , Service support [phone], CC: Jess George MD; Raciel Ribeiro MD Finish Machine Tender: Signed Raciel Ribeiro Work Phone: Start: 10-09-2013 End: 10-10-2013 Chest with Contrast Comments: See Note; NOTES: [facility] Imaging Services [address] [place] [address] CAT Scan Report MR#: [id number] Acct: [id number] Name: YEYO COFFMAN Rep #: [id number] : 1935 F 78 From: Solo Wilburn MD PCP: Jess George MD Status: REG CLI Study: Chest with Contrast Date of Exam: 10/09/13 Exam# [id number] Ordering Dr: Jamilah Rushing DO STUDY: CT CHEST WITH CONTRAST REASON FOR EXAM: Female, 78 years old. Recurrent bronchitis and shortness of breath. Patchy infiltrate in the right lung. RADIATION DOSAGE (If Supplied By Facility): CTDIvol = ( 13.16 ) mGy, DLP = ( 531.99 ) mGycm TECHNIQUE: High resolution transaxial imaging was performed following intravenous administration of 100 ml of Isovue 300 contrast material. Multiplanar coronal and sagittal images were reformatted. COMPARISON: Comparison is made with prior chest radiograph dated October 06, 2013. FINDINGS: There is evidence of hyperinflation. Scarring is present in the upper lobes. There is a 5.8 mm noncalcified nodule in the right upper lobe on image #37. This also evidence of tiny alveolar nodular densities scattered throughout both upper lobes. There is evidence of enlarging is infiltration in the anterior aspect of the right upper lobe with areas of bronchiectasis. Focal areas of increased alveolar densities are seen in the superior segments of both lower lobes. Bronchial alveolar carcinoma with metastatic disease in both lungs should be ruled out. Radiographic followup is strongly recommended. This also evidence of patchy infiltrate and/or scarring in the posterior medial segment of the right lower lobe. There is no demonstrated pleural abnormality. There are calcifications of the coronary arteries. There is evidence of mediastinal lymphadenopathy with the largest lymph node measuring 1.6 cm. Is evidence of bilateral hilar lymphadenopathy worse on the right side. Normal hilar regions. Normal enhanced pulmonary arteries. There is atherosclerotic calcification of the aortic arch with tortuosity and elongation of the aortic arch and descending thoracic aorta. There are multi-level degenerative changes of the thoracic spine. There is no demonstrated abnormality of the visualized upper abdomen. IMPRESSION: Heterogeneous airspace disease in the anterior aspect of the right upper lobe with evidence of bronchiectasis. Multiple tiny nodular areas of alveolar densities scattered in both lungs. Airspace disease is present in the upper segments of both lower lobes. Bronchial radiographic followup till clearing is strongly recommended. Alveolar carcinoma with lung metastasis should be ruled out. Mediastinal and bilateral hilar lymphadenopathy. Electronically Signed: Solo Wilburn M.D. at 10:42 EST , Service support [phone], CC: Jess George MD; Jamilah Rushing DO Finish Machine Tender: Signed Jamilah Rushing DO Work Phone: Start: 10-06-2013 End: 10-06-2013 Chest PA and Lateral Comments: See Note; NOTES: [facility] Imaging Services [address] [place] [address] Radiology Report MR#: [id number] Acct: [id number] Name: YEYO COFFMAN Rep #: [id number] : 1935 F 78 From: Jeyson Kenney MD PCP: Jess George MD Status: REG CLI Study: Chest PA and Lateral Date of Exam: 10/06/13 Exam# [id number] Ordering Dr: Jamilah Rushing DO STUDY: X-RAY CHEST REASON FOR EXAM: Female, 78 years old. Cough x12 days TECHNIQUE: PA and lateral views of the chest. COMPARISON: 09/05/10 FINDINGS: The lungs are hyperexpanded. There is a new opacification in the right perihilar region, likely an early infiltrate, though a more sinister process cannot be excluded. If resolution does not occur after appropriate therapy, a CT scan of the chest would be recommended for further evaluation. No demonstrated pleural effusion. Normal size heart. Normal mediastinum and henrique. Normal visualized pulmonary arteries. There is atherosclerotic calcification of the aortic arch with tortuosity. There are diffuse degenerative changes of the visualized thoracic spine. Normal visualized ribs, clavicles, and shoulders. There is no demonstrated abnormality of the visualized soft tissue structures of the upper abdomen. IMPRESSION: New right perihilar opacification. I suspect an infiltrate but cannot exclude an underlying lesion. Followup recommended to assure complete resolution, if there is not significant improvement in its appearance within a week to 10 days, further evaluation with CT recommended. 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 at 13:51 EST , Service support [phone], CC: Jess George MD; Jamilah Rushing DO Finish Machine Tender: Signed Jamilah Rushing DO Work Phone: Start: 07-24-2013 End: 07-24-2013 Knee 4 or More Views Comments: See Note; NOTES: [facility] Imaging Services [address] [place] [address] Radiology Report MR#: [id number] Acct: [id number] Name: YEYO COFFMAN Rep #: [id number] : 1935 F 77 From: Solo Wilburn MD PCP: Jess George MD Status: REG CLI Study: Knee 4 or More Views Date of Exam: 07/24/13 Exam# [id number] Ordering Dr: Jamilah Rushing DO STUDY: X-RAY - LEFT KNEE REASON FOR EXAM: Female, 77 years old. Soft tissue swelling following a fall. TECHNIQUE: 4 views of the knee. COMPARISON: None. FINDINGS: Normal visualized distal femur. Normal visualized proximal tibia and fibula. Normal proximal tibiofibular articulation. There is mild degenerative arthrosis of the medial femorotibial compartment. Normal lateral femorotibial compartment. Normal patellofemoral articulation. Prepatellar soft tissue swelling. Small joint effusion. IMPRESSION: Degenerative arthrosis. Prepatellar soft tissue swelling and small joint effusion. Electronically Signed: Solo Wilburn M.D. at 13:45 EST , Service support [phone], CC: Jess George MD; Jamilah Rushing DO Finish Machine Tender: Signed Jamilah Rushing DO Work Phone: Abdominal hysterectomy HARJINDER Blackmon ADRIANA Plan of Treatment Date Care Activity Detail Author Start: 11-25-2015 Provider Instructions for Treatment Follow up if no improvement or if symptoms worsen [facility] Work Phone: Start: 11-05-2015 Provider Instructions for Treatment Follow up in 2 weeks for repeat UA [facility]; [facility] Work Phone: Start: 09-16-2015 Provider Instructions for Treatment [facility]; [facility] Work Phone: Start: 09-16-2015 Lipid panel LIPID PANEL (68036) [facility]; [facility] Work Phone: Immunizations Immunization Date Immunization Notes Care Provider Fa nelson 10-25-2012 varicella zoster imm une globulin Jess George MD Work Phone: [facility]; [facility] Work Phone: 09-01-2010 pneumococcal polysaccharide vaccine, [address] JAGDEEP LONG MD [facility] Payers Date Payer Category Payer Medicare [id number] 1935 Unknown [id number] Unknown Social History Date Type Detail Facility Tobacco smoking status [facility] an [facility] Sex Assigned At Sex [facility] n [facility] Caffeine Use Caffeine Use [facility]; [facility] Work Phone: Functional Status Date Assessment Result Facility 12-28-2021 Functional Status [facility] 12-28-2021 [facility] 12-28-2021 [facility] 12-28-2021 [facility] 12-27-2021 [facility] 12-27-2021 [facility] 12-27-2021 [facility] 12-27-2021 [facility] 12[facility]27-2021 Functional [facility] 12-27-2021 Functional [facility] 12-26-2021 [facility] 12-26-2021 Functional [facility] 12[facility]26-2021 Functional [facility] 12[facility]26-2021 [facility] 12-26-2021 [facility] 12-26-2021 [facility] 12-26-2021 Functional [facility] 12-25-2021 [facility] 12-25-2021 [facility] 12-25-2021 [facility] 12-25-2021 [facility] Mental Status Date Assessment Result Facility 12-28-2021 [facility] 12-28-2021 [facility] 12-28-2021 Mental Status [facility] 12-27-2021 Mental Status [facility] 12-27-2021 Mental Status [facility] Hospital Discharge instructions 12-28-2021 Note Date & Type Note Facility 12-28-2021 Hospital Discharg e instructions Patient Education 12/28/2021 11:56:47 Intracerebral Hemorrhage Intracerebral Hemorrhage An intracerebral hemorrhage occurs when a blood vessel in the brain leaks or bursts. As a result, that area of the brain becomes damaged from a lack of blood and oxygen and from a pooling of leaked blood that presses on brain tissue. This is also called a bleeding (hemorrhagic) stroke. A stroke is a medical emergency. It must be treated right away. Early and prompt treatment will increase the chances of better recovery. Delay may lead to permanent damage and loss of brain function. What are the causes? This condition is often caused by very high blood pressure. It may also be caused by: Head injury (trauma). A bulging of a weak section in a blood vessel (aneurysm). Thin and hardened blood vessels. This occurs when plaque builds on the gasca of an artery. An abnormal formation of a blood vessel (arteriovenous malformation). This condition results in an abnormal tangle of thin-walled blood vessels. A tumor in the brain. Protein buildup on the artery gasca of the brain (amyloid angiopathy). Sometimes the cause of this condition is not known. What increases the risk? You are more likely to develop this condition if: You have high blood pressure (hypertension). You are an older adult. You abuse alcohol or drugs. You take blood-thinning medicines (anticoagulants). What are the signs or symptoms? Symptoms of this condition include: Sudden onset of these problems: ?Weakness or numbness of the face, arm, or leg, especially on one side of the body. ?Nausea and vomiting. ?Trouble speaking (aphasia) or understanding speech. ?Trouble seeing in one or both eyes. ?Difficulty walking or difficulty moving arms or legs. ?Loss of balance or coordination. ?Confusion. ?Dizziness. Seizures. Hypertension. How is this diagnosed? This condition may be diagnosed based on your medical history and physical exam. You may also have other tests, including: CT scan or MRI to view the brain. Computed tomography angiography (CTA) or a magnetic resonance angiogram (MRA) to view vessels in the brain. How is this treated? The goals of treating this condition are to stop the bleeding, control pressure in the brain, and relieve symptoms. Treatment may include: Medicines to treat symptoms, such as hypertension, pain, and nausea and vomiting. Other medicines, blood products, or vitamin K to control the bleeding. A tube (shunt) in the brain to relieve pressure. Assisted breathing (ventilation). Surgery to stop bleeding, remove a blood clot or tumor, and reduce pressure. Surgeries may include: ?Craniotomy, to remove a part of the skull in order to reduce pressure in the brain. ?Stereotactic aspiration, to remove blood from the brain using a needle or syringe. Follow these instructions at home: Medicines Take mixy-boj-bqqofui and prescription medicines only as told by your health care provider. Do not take medicines such as aspirin and ibuprofen unless your health care provider tells you to take them. These medicines can thin your blood and increase the risk of bleeding. Eating and drinking Eat healthy foods as directed by your health care provider. You may be asked to: ?Eat a diet that is low in salt (sodium), saturated fat, trans fat, and cholesterol to manage your blood pressure. Seek the help of specialists if your ability to swallow safely has been affected. A dietitian, speech and language specialists, and an occupational therapist can teach you how to get the nutrition you need. Limit alcohol intake to no more than 1 drink a day for non women and 2 drinks a day for men. One drink equals 12 oz of beer, 5 oz of wine, or 1 oz of hard liquor. Lifestyle Do not use any products that contain nicotine or tobacco, such as cigarettes and e-cigarettes. If you need help quitting, ask your health care provider. Follow your health care provider's instructions about preventing falls. Your health care provider may: ?Arrange for specialists to evaluate your home. ?Recommend that you install grab bars in the bedroom and bathroom. ?Arrange for special equipment to be used at home, such as a raised toilet and a seat for the shower. Use a walker or a cane at all times if directed by your health care provider. Do physical activities as told by your health care provider. Ask your health care provider what activities are safe for you. General instructions Manage any other health conditions you may have, including high blood pressure, diabetes, and excess body weight. Keep all follow-up visits as told by your health care provider. This is important. Visits include referrals for physical and occupational therapy, rehabilitation, and lab tests. Get help right away if: You have any symptoms of a stroke. BE FAST is an easy way to remember the main warning signs of a stroke: ?B - Balance. Signs are dizziness, sudden trouble walking, or loss of balance. ?E - Eyes. Signs are trouble seeing or a sudden change in vision. ?F - Face. Signs are sudden weakness or numbness of the face, or the face or eyelid drooping on one side. ?A - Arms. Signs are weakness or numbness in an arm. This happens suddenly and usually on one side of the body. ?S - Speech. Signs are sudden trouble speaking, slurred speech, or trouble understanding what people say. ?T - Time. Time to call emergency services. Write down what time symptoms started. You have other signs of a stroke, such as: ? A sudden, severe headache with no known cause. ? Nausea or vomiting. ? Seizure. ?You have a partial or total loss of consciousness. ?Confusion. These symptoms may represent a serious problem that is an emergency. Do not wait to see if the symptoms will go away. Get medical help right away. Call your local emergency services (911 in the [place] Do not drive yourself to the hospital. Summary An intracerebral hemorrhage occurs when a blood vessel in the brain leaks or bursts. This condition is often caused by very high blood pressure. Early and prompt treatment will increase the chances of better recovery. Delay may lead to permanent damage and loss of brain function. The goals of treatment are to stop the bleeding, control pressure in the brain, and relieve symptoms. This information is not intended to replace advice given to you by your health care provider. Make sure you discuss any questions you have with your health care provider. Document Released: 02/20/2015 Document Revised: 12/29/2019 Document Reviewed: 06/29/2018 [employer] Patient Education 2020 [employer] Follow Up Care 12/24/2021 17:06:39 With:JAGDEEP LONG Address: [address] [phone] Business (1) When:Within 6 Week(s) Comments:Follow up in clin in 6 weeks. Call office to schedule follow up. [facility] Evaluation + Plan note 12-25-2021 Note Date & Type Note Facility Right occipital ICH versus b rain lesion Initial head CT shows concern for right occipital intracranial hemorrhage. Given rounded appearance with associated edema, Dr. Long concern for possible ICH versus brain lesion therefore a brain MRI without contrast has been ordered. Further neurosurgical input will be provided once MRI is completed and Dr. Long has reviewed. Patient does have an implanted loop recorder, and further information is required to determine if this is compatible with [facility] MRI machines. Awaiting further information. Patient noted to be on Coumadin, and has received 2 units FFP, INR has decreased from 3.1 here to 1.8; has another 1 unit FFP ordered as Dr. Long has requested to achieve INR less than 1.5. It is noted that patient received half dose of vitamin K at [facility], prior to transfer. INR reportedly resulted after patient had departed for transfer to [facility] ED. At that time it was 2.7. She did not receive Kcentra. Repeat head CT this morning has been reviewed by Dr. Long. Findings are stable; no significant change in size of right occipital ICH versus brain lesion, or surrounding edema. No new intracranial hemorrhages noted. 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 Monitor neuro status closely, and assess for clinical signs of seizures. Notify neurosurgery promptly with any concerns. 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 Coumadin has been stopped and patient received 2 units FFP, third unit of FFP is ordered. INR has been brought down from 3.1-1.8; will be reevaluated after third unit of FFP. Patient will need to remain off Coumadin until cleared by Dr. Long to resume. Avoid NSAID use. [employer] physicians have been consulted for medical management while in ICU. Appreciate their assistance in care for patient. Please refer to Dr. Nolen's addendum for additional information details regarding neurosurgical input and plan of care. Addendum by JAGDEEP LONG MD on December 26, 2021 07:46:58 EDT This is a split shared note between myself and the nurse practitioner. This is a late entry note, the patient was seen on December 25, 2021. This is a woman who was seen at an outside hospital, where a CT scan was done which showed the presence of a rounded hyperdense lesion in the right occipital lobe. Her past medical history is quite significant. She presented to the outside hospital with complaints of just feeling off and not quite right. CT scan showed concern for possible right occipital hemorrhage, although the appearance on CT scan was rather round. My concern is that this actually may represent a possible tumor. She was admitted to the neurosurgery service. She was admitted to the SICU, and was given multiple units of FFP to bring her INR down which is currently now 1.3. Her repeat CT scan done this morning shows that the hemorrhage or possible tumor is stable and has not worsened. On examination she is awake she is alert, she has good strength in the upper and lower extremities. Her sensation is intact. Her speech is also normal. There is no clinical or radiographic signs of elevated intracranial pressure. Plan at this point time is going to be dependent upon the results of the MRI. Future Scheduled Tests Radiology* MRI Brain w/ + w/o Contrast 02/05/22 [facility] Hospital course Narrative Note Date & Type Note Facility Hospital course Narrative No data available for this section [facility] Instructions Note Date & Type Note Facility [facility]; [facility] Work Phone: Progress note Note Date & Type Note Facility Progress note No data available for this section [facility] Summary Purpose Family History No Family History Records FoundUnknown Family Member Name Dates Details Brother 1 Comments:IN and CMP Status:Active Family Members In General Comments:Aunt had breast can cer Status:Active Mother Comments:Anxiety & HBP Status:Active Advance Directives No Advanced Directives Records FoundNo Advanced Directives Records FoundNo Advanced Directives Records FoundNo Advanced Directives Records FoundNo Advanced Directives Records Found Hospital Course Note HNO ID: [id number] Author: Jhonathan He Service: Hospital Medicine Author Type: Physician Type: Discharge Summary Filed: 07/10/2019 2:19 PM Note Text: DISCHARGE SUMMARY PATIENT NAME: Yeyo Coffman Code Status: Not on file Highest Readmission Risk Score: 9 The 30 day readmissions risk score is derived from an internally validated risk model which evaluates patient level characteristics, utilization history, medication orders and lab results up until the day of discharge. Patients with a score of 40 or above are considered highest risk for readmission. Specific patient level drivers will be listed at the bottom of the summary. Admission Information Admission Information ADMIT DATE: 07/06/2019 DISCHARGE DATE: 07/10/19 [facility]ICAL TEAM: My Main [facility] Doctor: Birdie He Primary Care Provider: Robyn Serrato DO My Medical Team Members: Treatment Team: Attending Provider: Birdie He Primary Service: Alphonso Talbot Consulting: Fer Ho (more content not included)... Additional Source Comments INFORMATION SOURCE (unrecogn ized section and content) DATE CREATED AUTHOR AUTHOR'S ORGANIZ ATION 07/13/2019 [facility] DATE CREATED AUTHOR AUTHOR'S ORGANIZ ATION 07/13/2019 [facility] DATE CREATED AUTHOR AUTHOR'S ORGANIZ ATION 08/21/2019 [facility] DATE CREATED AUTHOR AUTHOR'S ORGANIZ ATION 01/20/2022 [facility] ([place]) Care Team (unrecognized sect ion and content) Personnel Name: JESS GEORGE MD Address: [address] [place] [address] FOR RECORDS PERTAINING TO PATIENTS WHO ARE OR HAVE BEEN ENROLLED IN A CHEMICAL DEPENDENCY/SUBSTANCEABUSE PROGRAM, SOME INFORMATION MAY BE OMITTED. This clinical summary was aggregated from multiple sources. Caution should be exercised in using it in the provision of clinical care. This summary normalizes information from multiple sources, and as a consequence, information in this document may materially change the coding, format and clinical context of patient data. In addition, data may be omitted in some cases. CLINICAL DECISIONS SHOULD BE BASED ON THE PRIMARY CLINICAL RECORDS. [employer] [facility]. provides no warranty or guarantee of the accuracy or completeness of information in this document.
[2023-08-05 05:32] VITALS: BP 189/95; PULSE 86; RESP 17; O2SAT 98
[2023-08-05 06:06] LABS: Bacteria 0 SEEN /hpf (None Seen); Mucous, Urine 0 SEEN /hpf (<or=2+); Red Blood Cells-Urine 0 SEEN /hpf (0-5)
[2023-08-05 06:09] LABS: Color, Urine Yellow (Yellow); Glucose, Dipstick Normal (Normal); Ketone-Dipstick Negative (Negative); Leukocyte Esterase-Dipstick 25 /ul (Negative); Nitrite-Dipstick Negative (Negative); Occult Blood-Urine Negative /ul (Negative); Protein-Dipstick Negative (Negative); Urine Bilirubin Dipstick Negative (Negative); Urine Clarity Clear (Clear); Urine Urobilinogen Normal (Normal)
[2023-08-05 07:21] LABS: Squamous Epithelial Cells - UA 0-5 SEEN /hpf (5-10); White Blood Cells 0-5 SEEN /hpf (0-5)
[2023-08-05 07:43] VITALS: BP 176/92; PULSE 84; RESP 16; O2SAT 94
== END 2023-08-05 08:39 | disposition home or self-care (01) ==
PROVIDERS: Emergency Provider Student in an Organized Health Care Education/Training Program; PCP Family Medicine; Visit Provider Student in an Organized Health Care Education/Training Program
DX: R42 Dizziness and giddiness (principal); F41.9 Anxiety disorder, unspecified; R53.1 Weakness
CPT/HCPCS: 70450; 71045; 80048; 81001; 84484; 85025; 93005; 96374; 99285; A4216

== ENCOUNTER → 2023-08-11 | Outpatient (CLI) | payer MEDICARE, SELFPAY | END | disposition home or self-care (01) | LOC: PSN 13:37 | PROVIDERS: PCP Family Medicine; Referring Provider Nurse Practitioner Family; Visit Provider Nurse Practitioner Family | DX: I48.0 Paroxysmal atrial fibrillation (principal); Z98.890 Other specified postprocedural states | CPT/HCPCS: 93225; 93226 ==

== ENCOUNTER → 2023-08-23 | Outpatient (CLI) | payer MEDICARE, SELFPAY ==
--- NOTE | 2023-08-23 14:20 | RAD_ITS ---
STUDY: X-RAY CHEST REASON FOR EXAM: Female, 87 years old. COUGH/DYSPNEA TECHNIQUE: PA and lateral views of the chest. COMPARISON: Comparison is made with prior study dated August 05, 2023. FINDINGS: Patchy infiltrate in the right middle lobe and right upper lobe. There is no demonstrated pleural abnormality. Normal size heart. Calcification of the mitral valve annulus. Normal mediastinum and henrique. Normal visualized pulmonary arteries. There is atherosclerotic calcification of the aortic arch with tortuosity. There are diffuse degenerative changes of the visualized thoracic spine. Dextroscoliosis. Healed right-sided rib fractures. There is no demonstrated abnormality of the visualized soft tissue structures of the upper abdomen. RAD/Chest PA and Lateral IMPRESSION: Hyperinflation. Patchy infiltrate in the right upper lobe and right middle lobe. Follow-up is recommended. Electronically Signed: Solo Wilburn MD at 14:54 EST ,
== END | disposition home or self-care (01) ==
LOC: MTRAD 14:19
PROVIDERS: PCP Family Medicine; Referring Provider Family Medicine; Visit Provider Family Medicine
DX: R05.9 Cough, unspecified (principal); R06.00 Dyspnea, unspecified
CPT/HCPCS: 71046

== ENCOUNTER 2023-08-24 15:04 | Inpatient (IN) | payer MEDICARE, SELFPAY ==
[2023-08-24] VITALS (7 sets, daily range): BP systolic 102–118; BP diastolic 61–82; PULSE 81–102; RESP 16–20; TEMP 36.1–37.7; O2SAT 93–97; BMI 29.0; BMI 27.6
--- NOTE | 2023-08-24 15:16 | EKG12_ITS ---
Test Reason : DYSRHYTHMIA Blood Pressure : / mmHG Vent. Rate : 101 BPM Atrial Rate : 000 BPM P-R Int : 000 ms QRS Dur : 132 ms QT Int : 380 ms P-R-T Axes : 000 020 160 degrees QTc Int : 492 ms Atrial fibrillation with rapid ventricular response Non-specific intra-ventricular conduction block Cannot rule out Septal infarct , age undetermined Abnormal ECG Confirmed by BRADEN SANCHEZ, TORIE ([id number]), pictures editor CARLTON SUMNER ([id number]) on 08/27/2023 7:54:52 AM Referred By: KEV Confirmed By:TORIE FELICIANO MD
--- NOTE | 2023-08-24 15:31 | EDS_ITS ---
HPI History of Present Illness Chief Complaint: Weakness Narrative Narrative: 87-year-old female past medical history of atrial fibrillation, not anticoagulated, mild CHF, presents with her son and daughter because of generalized weakness and shortness of breath. They relate history that she was seen by her primary care provider on the eighth of this month, approximately 8 days ago. She had been okay but a few days afterwards developed shortness of breath, and cough with yellow sputum production. She was seen by her primary care provider yesterday, and was diagnosed with pneumonia. She states she does take Lasix 40 mg daily because she has fluid around her heart . She presents with generalized weakness and increasing shortness of breath with dyspnea on exertion. While she lives at home with her son, she is unable to perform activities of daily living and gets very winded quickly with dyspnea on exertion, and additionally is more dependent on her rollator over the last few weeks. 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) Paroxysmal atrial fibrillation Shortness of breath Status post placement of implantable loop recorder Syncope unusual tiredness Home Medications calcium carbonate 600 mg-vitamin D3 5 mcg (200 unit) tablet 1 ea PO DAILY SUPPLEMENT 09/17/16 [History Last Taken 04/26/17 08:00 1] ezetimibe 10 mg tablet 10 mg PO DAILY COLESTEROL #90 tabs 11/09/22 [Rx Last Taken Unknown] hydrochlorothiazide 12.5 mg capsule 12.5 mg PO DAILY BLOOD PRESSURE #90 caps 11/09/22 [Rx Last Taken Unknown] losartan 25 mg tablet 25 mg PO BID HIGH BLOOD PRESSURE #180 tabs 06/22/23 [Rx Last Taken Unknown] furosemide 40 mg tablet (Lasix) 40 mg PO DAILY FLUID RETENTION #30 tabs 07/20/23 [Rx Last Taken Unknown] potassium chloride 20 mEq tablet,extended release 20 meq PO DAILY SUPPLEMENT #30 tabs 07/20/23 [Rx Last Taken Unknown] meclizine 25 mg tablet 25 mg PO TID PRN DIZZINESS #30 tabs 08/05/23 [Rx Last Taken Unknown] carvedilol 6.25 mg tablet 6.25 mg PO BID HEART #60 tabs 08/13/23 [Rx Last Taken Unknown] doxycycline monohydrate 100 mg tablet mg ANTIBIOTIC 08/24/23 [History Last Taken Unknown] Allergy/AdvReac Type Severity Reaction Status Date / Time latex Allergy Rash Verified 08/24/23 15:05 atorvastatin AdvReac Severe elevated Verified 08/24/23 15:05 LFT's codeine AdvReac Severe Syncope Verified 08/24/23 15:05 Sulfa (Sulfonamide AdvReac Severe Became Verified 08/24/23 15:05 Antibiotics) cold and clammy adhesive tape AdvReac Intermediate Rash Verified 08/24/23 15:05 gemfibrozil AdvReac Intermediate Myalgias Verified 08/24/23 15:05 levofloxacin AdvReac Intermediate restless Verified 08/24/23 15:05 leg movements morphine AdvReac Vomiting Verified 08/24/23 15:05 oxycodone AdvReac Vomiting Verified 08/24/23 15:05 tramadol AdvReac Other Verified 08/24/23 15:05 Family History Father Diabetes Heart disease Brother Heart disease Mother Heart disease Surgical History History of hip replacement History of knee replacement History of radiofrequency ablation procedure for cardiac arrhythmia (~2003) Social History household members: none Smoking Status: Never smoker second hand exposure: No alcohol intake: never substance use type: does not use what type of physical activity do you participate in: none denis/sikhism: Restorationism seatbelt use: always ROS ROS ED ROS Narrative Constitutional: No fever, no chills. Generalized weakness. Positive weight loss. HEENT: No sore throat. No neck pain. No loss of vision. No rhinorrhea. Cardiovascular: No chest pain. No palpitations. No pedal edema. Respiratory: Productive cough, increasing dyspnea on exertion and shortness of breath. Abdominal: No abdominal pain. No nausea. No vomiting. Genitourinary: No dysuria. No hematuria. Musculoskeletal: No myalgias. No arthralgias. Neurologic: No headaches. No dizziness. No lightheadedness. Skin: No rash. No change in color. Psychiatric: No depression. No anxiety. EXAM Physical Exam Narrative Exam Narrative: Afebrile. Vital signs noted. HEENT: Normocephalic. Atraumatic. PERRL, EOMI. Neck soft and supple. No point tenderness or step off. Cardiovascular: Regular rate and rhythm. No murmurs, rubs, or gallops appreciated. Respiratory: Intermittent tachypnea. Positive rhonchi right base greater than left Gastrointestinal: Abdomen soft, nontender, with normoactive bowel sounds. No rebound or guarding. Neurological: Awake. Alert. Nonfocal, nonlateralizing. Skin: No rash. Normal color. No pallor. Musculoskeletal: No pedal edema. Full range of motion extremities. Const Vital Signs: 08/24/23 15:05 08/24/23 17:13 08/24/23 17:13 Temperature 96.9 F L 97.6 F L Temperature Source Temporal Oral Pulse Rate 90 89 87 Respiratory Rate 18 16 18 Blood Pressure 102/77 111/82 H 111/82 H Blood Pressure Mean 85 91 91 Pulse Ox 96 95 93 Oxygen Delivery Method Room Air Room Air Room Air MDM MDM MDM Narrative Medical decision making narrative: Concern is for dehydration versus pneumonia versus sepsis. I have low suspicion for sepsis currently because she is not hypotensive, and she is not tachycardic or febrile. I do not feel that sepsis workup is currently indicated but she will be monitored. Additionally, with her shortness of breath, she may be having a COPD exacerbation versus CHF. EKG was obtained and interpreted by myself independently as atrial fibrillation at 101 bpm without other ectopy or acute ST changes. No STEMI. I reviewed her laboratory work and she does have an elevated white count of 13.9, hemoglobin normal at 12.5, hematocrit 37.1, platelet count normal at 210. Her potassium is low at 2.8, but she is on a diuretic. This will be replaced orally initially with 40 mill equivalents. BUN is 53 with a creatinine of 1.41. AST slightly elevated at 39 which I think is nonspecific. High-sensitivity troponin is 15. Chest x-ray interpreted by myself and 1 view shows right lower lobe pneumonia. I reviewed the radiology report which confirms my independent interpretation. Her daughter states that she is currently taking doxycycline. I do feel that given her weakness, and hypokalemia, that she should be started on IV antibiotics. She was started on Rocephin and azithromycin. I will add a lactic acid although the only SIRS criteria she is meeting currently is the leukocytosis. Urinalysis is negative for infection. Magnesium is also normal at 2.2 point in time, given her recent diagnosis of pneumonia, and increasing shortness of breath, I do feel that she requires admission as she has an acute kidney injury as well. Patient was discussed with Dr. Zuniga for admission to the general medical floor. Patient is in stable condition. History & Record Review Discussion w/independent historian: Patient and Family Additional record(s) reviewed:: Prior ED visit Lab Data Attestation: I reviewed the patient's lab results. Labs: Laboratory Results - last 24 hr 08/24/23 08/24/23 15:34 16:34 WBC 13.9 H RBC 3.90 L Hgb 12.5 Hct 37.1 MCV 95.1 MCH 32.1 H MCHC 33.7 RDW Std Deviation 42.4 RDW Coeff of [place] 12.2 Plt Count 210 MPV 9.8 Immature Gran % (Auto) 0.400 Neut % (Auto) 76.6 H Lymph % (Auto) 12.2 L Ashley % (Auto) 10.4 H Eos % (Auto) 0.1 Baso % (Auto) 0.3 Absolute Neuts (auto) 10.6 H Absolute Lymphs (auto) 1.69 Nucleated RBC % 0 Sodium 137 Potassium 2.8 L Chloride 99 Carbon Dioxide 27.0 Anion Gap 11 BUN 53 H Creatinine 1.41 H Est GFR (MDRD) Af Amer 46 L Est GFR (MDRD) Non-Af 38 L BUN/Creatinine Ratio 37.6 H Glucose 131 H Calcium 9.7 Magnesium 2.2 Total Bilirubin 1.30 H AST 39 H ALT 27 Alkaline Phosphatase 88 Troponin I High Sens 15 Total Protein 7.1 Albumin 2.8 L Globulin 4.3 H Albumin/Globulin Ratio 0.7 L Urine Color Yellow Urine Clarity Clear Urine pH 6.0 Ur Specific [place] 1.005 Urine Protein Negative Urine Glucose (UA) Normal Urine Ketones Negative Urine Occult Blood Negative Urine Nitrite Negative Urine Bilirubin Negative Urine Urobilinogen Normal Ur Leukocyte Esterase 25 H Urine RBC 0 SEEN Urine WBC 0-5 SEEN Ur Squamous Epith Cells 0-5 SEEN Ur Renal Epithelial Cell 0-5 SEEN Urine Bacteria 0 SEEN Urine Mucus 0 SEEN Radiography Chest X-Ray - ED: 1 View and Read by ED Physician Diagnostic Testing: Clinical Impression(s) from Imaging Studies Chest X-Ray 08/24/23 15:57 IMPRESSION: Persistent right lower lobe infiltrate with slight interval progression since prior study Electronically Signed: Chuckie Flores MD at 16:11 EST , Management Discussion w/another healthcare provider: Hospitalist (Dr. Aminata Zuniga) Discharge Plan Dx/Rx/DC Orders Clinical Impression: Pneumonia, Paroxysmal atrial fibrillation, SHEPHERD (dyspnea on exertion), Hypokalemia, Acute kidney injury Disposition Disposition: [facility] Capacity Legal Direct Marketing Representative Reflex Medical hold order details:: IF a medical hold is selected below, a suggested order for a MEDICAL HOLD will reflex upon signing the document. Next of kin: [place] law dictates a PRIORITY LIST for identifying legal decision-maker/legal next of kin in the following order (LNOK): 1st: The patient?s legal guardian, if any 2nd: The patient's spouse (if status is questionable, consult Risk Management) 3rd: The patient?s adult child(domenico) (majority, if multiple children) 4th: The patient?s parents 5th: The patient?s adult siblings (majority, if multiple children siblings)
--- NOTE | 2023-08-24 15:57 | RAD_ITS ---
STUDY: X-RAY CHEST REASON FOR EXAM: Female, 87 years old. Cough, SOB TECHNIQUE: AP portable COMPARISON: August 23, 2023 FINDINGS: Reticulonodular infiltrate in the right lower lobe.. There is no demonstrated pleural abnormality. Normal size heart. Normal mediastinum and henrique. Normal visualized pulmonary arteries. Mildly calcified aortic arch and descending thoracic aorta. Dorsal spine demonstrates scoliosis and degenerative change Normal visualized clavicles, and shoulders. Old healed right rib fracture. There is no demonstrated abnormality of the visualized soft tissue structures of the upper abdomen. RAD/Chest 1 View (Portable) IMPRESSION: Persistent right lower lobe infiltrate with slight interval progression since prior study Electronically Signed: Chuckie Flores MD at 16:11 EST ,
[2023-08-24 16:01] LABS: Absolute Lymphocyte Count 1.69 X10^3/uL (0.83-4.51); Absolute Neutrophil Count 10.6 X10^3/uL (2.0-7.7); Basophil# 0.04 X10^3/uL; Basophil% 0.3 % (0-1); Eosinophil# 0.01 X10^3/uL; Eosinophils% 0.1 % (0-5); Hematocrit 37.1 % (37-47); Hemoglobin 12.5 g/dL (12.0-15.0); Lymphocyte # 1.69 X10^3/ul (0.83-4.51); Lymphocyte % 12.2 % (19-41); Mean Corp Hgb Conc 33.7 g/dL (32-36); Mean Corpuscular Hgb 32.1 pg (27.0-32.0); Mean Corpuscular Volume 95.1 fL (81-99); Mean Platelet Vol. 9.8 fl (6.2-12.0); Monocyte# 1.45 X10^3/uL; Monocyte% 10.4 % (0-10); NRBC Flagged by Analyzer 0 % (0-5); Neutrophil # 10.64 X10^3/uL (2.7-7.7); Neutrophil % 76.6 % (47-70); Platelet Count 210 K/mm3 (150-450); RBC Distribution Width CV 12.2 % (11.6-14.6); RBC Distribution Width SD 42.4 fl (35.1-43.9); White Blood Count 13.9 K/mm3 (4.4-11.0)
[2023-08-24 16:15] LABS: ALB/GLOB Ratio 0.7 RATIO (0.9-2.4); AST(SGOT) 39 U/L (15-37); Alanine Aminotransfer ALT/SGPT 27 U/L (13-56); Albumin, Serum 2.8 g/dL (3.2-5.0); Alkaline Phosphatase 88 U/L (45-117); Anion Gap 11 (5-15); BUN 53 mg/dL (7-18); BUN/Creat Ratio 37.6 RATIO (10-20); Calcium,Total 9.7 mg/dL (8.5-10.1); Chloride 99 mmol/L (98-107); Creatinine, Serum 1.41 mg/dL (0.55-1.02); EST Glomerular Filtration Rate 38 mL/min (>60); Est Glom Filt Rate - Afr Amer 46 mL/min (>60); Globulin 4.3 g/dL (2.2-4.2); Glucose 131 mg/dL (74-106); Potassium 2.8 mmol/L (3.5-5.1); Protein, Total 7.1 g/dL (6.4-8.2); Sodium Level 137 mmol/L (136-145); Troponin-I HS 15 pg/mL (3.0-54.0)
[2023-08-24] MEDS: Ceftriaxone 2 GM in 0.9% Normal Saline (50mL MB+) 50 ML IV (16:39)
[2023-08-24 16:44] LABS: Bacteria 0 SEEN /hpf (None Seen); Mucous, Urine 0 SEEN /hpf (<or=2+); Red Blood Cells-Urine 0 SEEN /hpf (0-5)
[2023-08-24 16:50] LABS: Color, Urine Yellow (Yellow); Glucose, Dipstick Normal (Normal); Ketone-Dipstick Negative (Negative); Leukocyte Esterase-Dipstick 25 /ul (Negative); Nitrite-Dipstick Negative (Negative); Occult Blood-Urine Negative /ul (Negative); Protein-Dipstick Negative (Negative); Specific Gravity, Urine 1.005 (1.002-1.030); Urine Bilirubin Dipstick Negative (Negative); Urine Clarity Clear (Clear); Urine Urobilinogen Normal (Normal)
[2023-08-24] MEDS: Potassium Chloride Oral Tablet 20 MEQ 40 MEQ PO ×2 (16:55→19:51)
[2023-08-24 17:00] LABS: Magnesium 2.2 mg/dL (1.6-2.6)
[2023-08-24 17:00] LABS: Renal Epithelial Cells 0-5 SEEN /hpf (0-5); Squamous Epithelial Cells - UA 0-5 SEEN /hpf (5-10); White Blood Cells 0-5 SEEN /hpf (0-5)
--- NOTE | 2023-08-24 17:15 | NURSING ---
DR ALEX STANFORD
--- NOTE | 2023-08-24 17:21 | PCM.HP.STD ---
HPI - General General Date of Admission: 08/24/23 Date of Service: 08/24/23 Chief Complaint: Weakness HPI Narrative ANNA NOLAN, is a 87 F who presented to department at [facility] on 08/24/2023 complaining of generalized weakness and shortness of breath. Patient started having symptoms about a week ago that consisted of some general malaise, myalgias, nasal congestion and chills and then developed some shortness of breath and cough. She was seen yesterday by her primary care physician and a chest x-ray was obtained and she was found to have a pneumonia. She was hearted on doxycycline and has taken 3 total doses of Doxy since yesterday but has had persistent shortness of breath and worsening generalized weakness. Her appetite and liquid intake have been on the low side. She states she has very poor appetite but today she is starting to feel hungry again. 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 She lives at home with her son and has been unable to perform activities of daily living due to her dyspnea and fatigue. She also uses a rollator walker and has been more dependent on this over the last week or so. Vital signs on presentation showed temperature of 96.9, heart rate 100, blood pressure was 102/77, respiratory rate was 18 oxygen saturations have been anywhere from 93 to 96% on room air at rest. CBC shows a leukocytosis with a white count of 13.9 and a left shift having a 76.6% neutrophilia. She also has a monocytosis at 10.4%. Her chemistry panel shows marked hypokalemia with potassium of 2.8, BUN of 53 and a serum creatinine of 1.41 (baseline BUN/creatinine run around 20-30 and between 0.75 and 1.0 respectively.) Her serum glucose is mildly elevated at 133. She had a previous hemoglobin A1c that was 6.0 and is not diagnosed as a diabetic at baseline. Her bilirubin was mildly elevated as well at 1.30. Troponin was obtained and found to be 15. UA is unremarkable. EKG shows atrial fibrillation with controlled rate. Chest x-ray shows right lower lobe pneumonia. In the emergency department she was given 1 L of IV fluids and started on azithromycin and ceftriaxone to cover commune acquired pneumonia. She was also given 40 mill equivalents p.o. potassium for hypokalemia. She will be admitted to PCU due to her marked electrolyte abnormality and I do anticipate her hospitalization to require more than 48 hours today. 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) Paroxysmal atrial fibrillation Shortness of breath Status post placement of implantable loop recorder Syncope unusual tiredness Home Medications calcium carbonate 600 mg-vitamin D3 5 mcg (200 unit) tablet 1 ea PO DAILY SUPPLEMENT 09/17/16 [History Last Taken 08/24/23] ezetimibe 10 mg tablet 10 mg PO DAILY COLESTEROL #90 tabs 11/09/22 [Rx Last Taken 08/24/23] hydrochlorothiazide 12.5 mg capsule 12.5 mg PO DAILY BLOOD PRESSURE #90 caps 11/09/22 [Rx Last Taken 08/24/23] losartan 25 mg tablet 25 mg PO BID HIGH BLOOD PRESSURE #180 tabs 06/22/23 [Rx Last Taken 08/24/23] furosemide 40 mg tablet (Lasix) 40 mg PO DAILY FLUID RETENTION #30 tabs 07/20/23 [Rx Last Taken 08/24/23] potassium chloride 20 mEq tablet,extended release 20 meq PO DAILY SUPPLEMENT #30 tabs 07/20/23 [Rx Last Taken 08/24/23] meclizine 25 mg tablet 25 mg PO TID PRN DIZZINESS #30 tabs 08/05/23 [Rx Last Taken 08/06/23] carvedilol 6.25 mg tablet 6.25 mg PO BID HEART #60 tabs 08/13/23 [Rx Last Taken 08/24/23] doxycycline monohydrate 100 mg tablet 100 mg PO BID ANTIBIOTIC 08/24/23 [History Last Taken 08/24/23] Allergy/AdvReac Type Severity Reaction Status Date / Time latex Allergy Rash Verified 08/24/23 15:05 atorvastatin AdvReac Severe elevated Verified 08/24/23 15:05 LFT's codeine AdvReac Severe Syncope Verified 08/24/23 15:05 Sulfa (Sulfonamide AdvReac Severe Became Verified 08/24/23 15:05 Antibiotics) cold and clammy adhesive tape AdvReac Intermediate Rash Verified 08/24/23 15:05 gemfibrozil AdvReac Intermediate Myalgias Verified 08/24/23 15:05 levofloxacin AdvReac Intermediate restless Verified 08/24/23 15:05 leg movements morphine AdvReac Vomiting Verified 08/24/23 15:05 oxycodone AdvReac Vomiting Verified 08/24/23 15:05 tramadol AdvReac Other Verified 08/24/23 15:05 Family History Father Diabetes Heart disease Brother Heart disease Mother Heart disease Surgical History History of hip replacement History of knee replacement History of radiofrequency ablation procedure for cardiac arrhythmia (~2003) Social History household members: none Smoking Status: Never smoker second hand exposure: No alcohol intake: never substance use type: does not use what type of physical activity do you participate in: none denis/yazidi: Lutheran seatbelt use: always ROS Constitutional Constitutional: Reports anorexia, chills, fatigue, malaise and weakness; Denies change in weight, fever(s), night sweats or other Eyes Eyes: Denies blurry vision, change in eye color, change in vision, discharge from eye(s), double vision, erythema, eye pain, loss of vision or other ENT HEENT: Reports headache(s), nasal congestion, nasal discharge, post nasal drip and sore throat; Denies abnormal hearing, dysphagia, ear pain, epistaxis, hearing loss, sinus pressure or other Cardiovascular Cardiovascular: Reports chest pain and dyspnea on exertion; Denies claudication, edema, lightheadedness, orthopnea, palpitations, paroxysmal nocturnal dyspnea, rapid heart rate, syncope or other Respiratory/Chest Respiratory/Chest: Reports cough, dyspnea, excessive phlegm production, productive cough, shortness of breath at rest and shortness of breath with exertion; Denies hemoptysis, wheezing or other Gastrointestinal Gastrointestinal: Denies abdominal pain, coffee ground emesis, constipation, diarrhea, dyspepsia, hematemesis, hematochezia, loose stools, melena, nausea, vomiting or other Genitourinary Genitourinary: Denies burning urination, difficulty urinating, dysuria, hematuria, nocturia, urinary frequency, urinary hesitancy, urinary incontinence, urinary urgency or other Musculoskeletal Musculoskeletal: Denies arthralgias, back pain, joint pain, joint stiffness, joint swelling, myalgias, neck pain or other Neurologic Neurologic: Reports headache(s); Denies abnormal gait, abnormal speech, confusion, disequilibrium, dizziness, focal weakness, numbness, paresthesias, seizure-like activity, seizures, syncope, tingling, tremor(s) or other Psychiatric Psychiatric: Denies anxiety, depression, homicidal ideation, suicidal ideation or other Endocrine Endocrinology: Denies change in body appearance, cold intolerance, excessive sweating, heat intolerance, polydipsia, polyuria or other Hematologic/Lymphatic Hematologic/Lymphatic: Denies anemia, easy bleeding, easy bruising, lymphadenopathy or other Allergic/Immunologic Allergic/Immunologic: Denies rhinitis, hives, eczemia, asthma or other Vital Signs Vital Signs Vital Signs: 08/24/23 15:05 08/24/23 17:13 08/24/23 17:13 Temperature 96.9 F L 97.6 F L Temperature Source Temporal Oral Pulse Rate 90 89 87 Respiratory Rate 18 16 18 Blood Pressure 102/77 111/82 H 111/82 H Blood Pressure Mean 85 91 91 Pulse Ox 96 95 93 Oxygen Delivery Method Room Air Room Air Room Air Weight Weight: 81.737 kg Body Mass Index (BMI) 29.0 Physical Exam Const alert, oriented x3, no apparent distress and well nourished Constitutional Narrative: Elderly, white female, sitting up in bed, family at bedside, appears comfortable but sounds congested, does not appear toxic General Appearance: cooperative HEENT normocephalic and head/scalp atraumatic; Negative for hearing grossly normal bilaterally or moist oral mucous membranes HEENT Narrative: Markedly hard of hearing, Mallampati 2, no thrush, mucous membranes are dry Eyes PERRL, EOMs intact bilaterally and conjunctivae normal Eyes Narrative: No scleral icterus Neck No no lymphadenopathy, supple, no JVD and no carotid bruits Neck Narrative: Bilateral cervical and submandibular lymphadenopathy noted, trachea is midline, no thyroid enlargement or thyroid nodules palpated Resp No normal respiratory effort, no retractions, no use of accessory muscles and No clear to auscultation bilaterally Resp Narrative: Mild tachypnea, coarse breath sounds most notable at bilateral bases with rhonchi present no rales or wheeze Auscultation: rhonchi; Negative for rales or wheezes Cardio regular rate, S1 normal heart sound, S2 normal heart sound, no murmurs, no rub, no gallops and no clicks Cardio Narrative: Irregularly irregular rhythm GI normal to inspection, nondistended, normoactive bowel sounds, soft to palpation and non-tender Extremity no clubbing, cyanosis or edema Extremity Narrative: 2+ pedal pulses Skin no rashes or lesions noted, no wounds, skin turgor normal, no jaundice, no petechiae and no mottling Neuro oriented x3, CN's II-XII intact bilaterally, moves all extremities and no focal motor deficits Neuro Narrative: Generalized weakness noted but no focal deficits Speech: speech normal Psych affect normal Psych Narrative: Very pleasant, eye contact is good, mood appears to be stable Results Lab / Micro Data 08/24/23 15:34 08/24/23 15:34 Labs: Laboratory Results - last 24 hr 08/24/23 15:34: WBC 13.9 H, RBC 3.90 L, Hgb 12.5, Hct 37.1, MCV 95.1, MCH 32.1 H, MCHC 33.7, RDW Std Deviation 42.4, RDW Coeff of [place] 12.2, Plt Count 210, MPV 9.8, Immature Gran % (Auto) 0.400, Neut % (Auto) 76.6 H, Lymph % (Auto) 12.2 L, [place] % (Auto) 10.4 H, Eos % (Auto) 0.1, Baso % (Auto) 0.3, Absolute Neuts (auto) 10.6 H, Absolute Lymphs (auto) 1.69, Nucleated RBC % 0, Sodium 137, Potassium 2.8 L, Chloride 99, Carbon Dioxide 27.0, Anion Gap 11, BUN 53 H, Creatinine 1.41 H, Est GFR (MDRD) Af Amer 46 L, Est GFR (MDRD) Non-Af 38 L, BUN/Creatinine Ratio 37.6 H, Glucose 131 H, Calcium 9.7, Magnesium 2.2, Total Bilirubin 1.30 H, AST 39 H, ALT 27, Alkaline Phosphatase 88, Troponin I High Sens 15, Total Protein 7.1, Albumin 2.8 L, Globulin 4.3 H, Albumin/Globulin Ratio 0.7 L 08/24/23 16:34: Urine Color Yellow, Urine Clarity Clear, Urine pH 6.0, Ur Specific [place] 1.005, Urine Protein Negative, Urine Glucose (UA) Normal, Urine Ketones Negative, Urine Occult Blood Negative, Urine Nitrite Negative, Urine Bilirubin Negative, Urine Urobilinogen Normal, Ur Leukocyte Esterase 25 H, Urine RBC 0 SEEN, Urine WBC 0-5 SEEN, Ur Squamous Epith Cells 0-5 SEEN, Ur Renal Epithelial Cell 0-5 SEEN, Urine Bacteria 0 SEEN, Urine Mucus 0 SEEN Imagaing Radiology Impression Chest X-Ray 08/24/23 15:57 IMPRESSION: Persistent right lower lobe infiltrate with slight interval progression since prior study Electronically Signed: Chuckie Flores MD at 16:11 EST Reading Location ID and State: [address] [place] [address] Tel , Service support , Assessment & Plan Assessment/Plan (1) Acute kidney injury: (2) Hypokalemia: (3) Pneumonia: (4) Leukocytosis: (5) Hyperbilirubinemia: (6) Debility: (7) Generalized weakness: (8) Shortness of breath: PLAN: Plan Shortness of breath secondary to right lower lobe pneumonia -Patient not hypoxic at rest however I do anticipate with exertion she may become hypoxic as her oxygen saturations at rest are only 93% -COVID/flu/RSV PCR pending -Check respiratory viral panel -Check strep pneumo and Legionella antigens -Continue ceftriaxone and azithromycin -Check MRSA PCR and if positive add vancomycin--overall low risk for staph pneumonia however -As needed albuterol -I-S -Acapella 10 times every 2 hours -Guaifenesin 1200 mg p.o. twice daily -As needed antitussives Hypokalemia -Patient was given 40 mill colons p.o. potassium in the emergency department and will receive another 40 mill equivalents on the floor -Repeat lab in a.m. -Check a.m. magnesium level YOHANA -Baseline serum creatinine appears to run between 0.7 and 1.0 -P.o. intake has been poor with both solids and liquids -Serum creatinine presentation 1.41 -Patient received 1 L bolus in the emergency department and I will repeat 1 more liter after admission -Hold home diuretics and hold home losartan until renal function improves Mild hyperbilirubinemia -Likely related to acute illness -Repeat liver function in a.m. Generalized weakness/debility -Likely due to acute illness -PT/OT consultation -Case management/social work consultation for assistance with discharge planning--> hoping patient clinically enough to only need home health and not placement Nonobstructive CAD/HTN/HPL/cardiomyopathy/mild -Aspirin and anticoagulation are contraindicated due to her history of cerebral amyloid angiopathy and previous intracerebral hemorrhages -Last echocardiogram from 06/30/2023 shows an EF of 35% with severe biatrial dilation and moderate tricuspid and mitral valve insufficiency, right ventricular systolic pressure 30 mmHg and mild aortic stenosis -Continue home carvedilol -Continue Zetia--> patient has statin allergy -Hold Lasix and hydrochlorothiazide -Hold home losartan -As needed hydralazine for systolic and 160 -Continue outpatient cardiology follow-up Paroxysmal atrial fibrillation -Beta-judie -Anticoagulation is contraindicated due to her history of cerebral amyloid angiopathy and this intracerebral hemorrhages -Patient does have implantable loop recorder Cerebral amyloid angiopathy -History of intracerebral hemorrhages -Anticoagulation and antiplatelet therapy is contraindicated due to this -No current concerns History of TIA -Antiplatelet therapy and Coumadin contraindicated DVT prophylaxis -Subcu heparin 5000 units twice daily CODE STATUS -DNR CCA okay for short-term intubation per discussion on admission Charges/Coding Visit Charges Inpatient E&M: 96910 Init Hosp L2
[2023-08-24] MEDS: Azithromycin 500 MG in Dextrose 5%-Water (250mL Bag) 250 ML 250 MG IV (17:22)
--- NOTE | 2023-08-24 17:35 | NURSING ---
MED SURG ALEX HYPOKALEMIA, PNEUMONIA, ACUTE KIDNEY INJURY
--- OUTSIDE RECORDS SUMMARY | 2023-08-24 17:35 | XMS RPT_ITS | CCD ---
Author Name Unknown Address [address] [place] [address] Organization [employer] Care Team Providers Care Ladle Liner Helper Name Role Phone MARISABEL, BRIAN E Unavailable [...] Adrián Iqbal Unavailable Jess George MD Unavailable [phone] JESSICA Blackmon LPN Unavailable Unavailable Unavailable Unavailable Allergies Allergy Classification Reported Allergen(s) Allergy Type Date of Onset Reaction(s) Facility (1 source) Adhesive Tape; Translations: [ADHESIVE TAPE (ROSINS)] Propensity to adverse reactions (disorder) 06-18-20 08 [facility] Repository (2 sources) codeine; Translations: [CODEINE] Drug Allergy 08-25-19 [facility] Repository (1 source) Latex; Translations: [LATEX] Propensity to adverse reactions to drug (disorder) 10-04-19 10 [facility] Repository (1 source) Sulfonamides (Antibiotic); Translations: [SULFA (SULFONAMIDE ANTIBIOTICS)] Propensity to adverse reactions to drug (disorder) 08-25-19 [facility] Repository (1 source) Sulfamethoxazole ; Translations: [sulfamethoxazol e] Drug Allergy Clammy skin (finding) [facility] (3 sources) Lovastatin; Translations: [Lovastatin *ANTIHYPERLIPIDE [...] temperature 97.7 [degF] DR JAGDEEP LONG MD [facility] 12-28-2021 08:31-0400 Diastolic blood pressure 80 mm[Hg] DR JAGDEEP LONG MD [facility] 12-28-2021 08:31-0400 Heart rate 117 /min DR JAGDEEP LONG MD [facility] 12-28-2021 08:31-0400 Mean blood pressure 92 mm[Hg] DR JAGDEEP LONG MD [facility] 12-28-2021 08:31-0400 Reason For Taking VItal Signs DR JAGDEEP LONG MD [facility] 12-28-2021 08:31-0400 Respiratory rate 18 /min DR JAGDEEP LONG MD [facility] 12-28-2021 08:31-0400 Systolic blood pressure 116 mm[Hg] DR JAGDEEP LONG MD [facility] 12-28-2021 03:53-0400 Body temperature 97.7 [degF] DR JAGDEEP LONG MD [facility] 12-28-2021 03:53-0400 Diastolic blood pressure 68 mm[Hg] DR JAGDEEP LONG MD [facility] 12-28-2021 03:53-0400 Heart rate 105 /min DR JAGDEEP LONG MD [facility] 12-28-2021 03:53-0400 Mean blood pressure 88 mm[Hg] DR JAGDEEP LONG MD [facility] 12-28-2021 03:53-0400 Reason For Taking VItal Signs DR JAGDEEP LONG MD [facility] 12-28-2021 03:53-0400 Respiratory rate 18 /min DR JAGDEEP LONG MD [facility] 12-28-2021 03:53-0400 Systolic blood pressure 128 mm[Hg] DR JAGDEEP LONG MD [facility] 12-27-2021 22:31-0400 Body temperature 98.06 [degF] DR JAGDEEP LONG MD [facility] 12-27-2021 22:31-0400 Diastolic blood pressure 74 mm[Hg] DR JAGDEEP LONG MD [facility] 12-27-2021 22:31-0400 Heart rate 101 /min DR JAGDEEP LONG MD [facility] 12-27-2021 22:31-0400 Mean blood pressure 88 mm[Hg] DR JAGDEEP LONG MD [facility] 12-27-2021 22:31-0400 Reason For Taking VItal Signs DR JAGDEEP LONG MD [facility] 12-27-2021 22:31-0400 Respiratory rate 18 /min DR JAGDEEP LONG MD [facility] 12-27-2021 22:31-0400 Systolic blood pressure 116 mm[Hg] DR JAGDEEP LONG MD [address] [place] [address] 12-27-2021 05:28-0400 Heart rate 109 /min DR JAGDEEP LONG MD [facility] 12-27-2021 05:10-0400 Diastolic Blood Pressure NBP [address] LONG MD [facility] 12-27-2021 05:10-0400 Systolic Blood Pressure NBP [address] LONG MD [facility] 12-27-2021 05:03-0400 Diastolic Blood Pressure NBP [address] LONG MD [facility] 12-27-2021 05:03-0400 Systolic Blood Pressure NBP [address]DE[address] LONG MD [facility] 12-27-2021 04:25-0400 Diastolic Blood Pressure NBP [address] LONG MD [facility] 12-27-2021 04:25-0400 Mean blood pressure 84 mm[Hg] DR JAGDEEP LONG MD [facility] 12-27-2021 04:25-0400 Systolic Blood Pressure NBP [address] LONG MD [facility] 12-26-2021 23:21-0400 Mean blood pressure 104 mm[Hg] DR JAGDEEP LONG MD [facility] 12-26-2021 19:49-0400 Mean blood pressure 95 mm[Hg] DR JAGDEEP LONG MD [facility] 12-25-2021 14:05-0400 Signs/Symptoms Transfusion Reaction DR JAGDEEP LONG MD [facility] 12-25-2021 11:45-0400 Signs/Symptoms Transfusion Reaction DR JAGDEEP LONG MD [facility] 12-25-2021 09:45-0400 Signs/Symptoms Transfusion Reaction DR JAGDEEP LONG MD [facility] 12-25-2021 09:04-0400 Heart rate 101 /min DR JAGDEEP LONG MD [facility] 12-25-2021 08:27-0400 Heart rate 115 /min DR JAGDEEP LONG MD [facility] 12-25-2021 03:01-0400 Heart rate 103 /min DR JAGDEEP LONG MD [facility] 12-25-2021 00:08-0400 Heart rate 121 /min DR JAGDEEP LONG MD [facility] 12-24-2021 23:18-0400 Heart rate 100 /min DR JAGDEEP LONG MD [facility] 12-24-2021 20:48-0400 Body height 167.[address] JAGDEEP LONG MD [facility] 12-24-2021 20:48-0400 Body weight 81.[address] JAGDEEP LONG MD [facility] 12-24-2021 20:48-0400 Body weight 29.12 kg/m2 DR JAGDEEP LONG MD [facility] 12-16-2015 08:31-0400 Body height 165.1 cm [...] management of inpatient DR JAGDEEP LONG MD [facility] Start: 08-21-2019 Patient encounter procedure SELF SELF Facility:[facility] Start: 03-31-2018 End: 03-31-2018 Patient encounter [facility] Start: 03-30-2018 End: 03-30-2018 Patient encounter [facility] Start: 03-22-2018 End: 03-22-2018 Patient encounter [facility] Start: 03-22-2018 End: 03-22-2018 Patient encounter [facility]RI[facility] PET[facility] Start: 07-20-2017 End: 07-20-2017 Patient encounter BRI[facility] PETIT [facility] Start: 04-27-2017 End: 04-28-2017 Patient encounter [facility]RI[facility] PETIT [facility] Start: 04-27-2017 End: 04-28-2017 Patient encounter BRI[facility] PETIT [facility] Start: 12-16-2015 End: 12-16-2015 Office outpatient visit [...] Density Study (HP) Comments: See Note; NOTES: [facility] Imaging Services [address] [place] [address] Verdana 4d Dexa Bone Density Study (HP) MR#: [id number] Acct: [id number] Name: YEYO COFFMAN Rep #: [id number] : 1935 F 80 From: Solo Wilburn MD PCP: Jess George MD Status: REG CLI Study: Dexa Bone Density Study (HP) Date of Exam: 10/02/15 Exam# [id number] Ordering Dr: Jess George MD STUDY: DUAL [...] Solo Wilburn MD at 11:05 EST Tel [phone], Service support [phone], CC: Jess George MD Race Board Attendant: Signed Jess George MD Work Phone: Start: 09-26-2015 End: 09-26-2015 Bilat Scrn Digital AND CAD Comments: See Note; NOTES: [facility] Imaging Services [address] [place] [address] Verdana 4d Bilat Scrn Digital AND CAD MR#: [id number] Acct: [id number] Name: YEYO COFFMAN Rep #: [id number] : 1935 F 80 From: Solo Wilburn MD PCP: Jess George MD Status: REG CLI Study: Bilat Scrn Digital AND CAD Date of Exam: 09/26/15 Exam# [id number] Ordering Dr: Jess George MD MAMMOGRAPHY - [...] delay biopsy of a clinically suspicious abnormality. [id number] Electronically Signed: Solo Wilburn MD at 14:04 EST Tel [phone], Service support [phone], CC: Jess George MD Race Board Attendant: Signed Jess George MD Work Phone: Start: 12-18-2014 End: 12-18-2014 Chest without Contrast Comments: See Note; NOTES: [facility] Imaging Services [address] [place] [address] CAT Scan Report MR#: [id number] Acct: [id number] Name: COFFMANLELA ABBOTTFORTINO Schaefer Rep #: [id number] : 1935 F 79 From: Hunter Torres DO PCP: Jess George MD Status: REG CLI Study: Chest without Contrast Date of Exam: 12/18/14 Exam# [id number] Ordering Dr: Raciel Ribeiro MD STUDY: CT [...] Hunter Torres DO at 12:44 EDT Tel [phone], Service support [phone], CC: Jess George MD; Raciel Ribeiro MD Race Board Attendant: Signed Raciel Ribeiro Work Phone: Start: 04-24-2014 End: 04-25-2014 Chest PA and Lateral Comments: See Note; NOTES: [facility] Imaging Services [address] [place] [address] Radiology Report MR#: [id number] Acct: [id number] Name: YEYO COFFMAN Rep #: [id number] : 1935 F 78 From: Jaya Maldonado PCP: Jess George MD Status: REG CLI Study: Chest PA and Lateral Date of Exam: 04/24/14 Exam# [id number] Ordering Dr: Raciel Ribeiro MD STUDY: X-RAY [...] MD at 1:47 EDT , Service support [phone], CC: Jess George MD; Raciel Ribeiro MD Race Board Attendant: Signed Raciel Ribeiro Work Phone: Start: 12-18-2013 End: 12-19-2013 Chest without Contrast Comments: See Note; NOTES: [facility] Imaging Services [address] [place] [address] CAT Scan Report MR#: [id number] Acct: [id number] Name: YEYO COFFMAN Rep #: [id number] : 1935 F 78 From: Earlene Arana MD PCP: Jess George MD Status: REG CLI Study: Chest without Contrast Date of Exam: 12/18/13 Exam# [id number] Ordering Dr: Raciel Ribeiro MD STUDY: CT [...] MD at 0:52 EDT , Service support [phone], CC: Jess George MD; Raciel Ribeiro MD Race Board Attendant: Signed Raciel Ribeiro Work Phone: Start: 10-09-2013 End: 10-10-2013 Chest with Contrast Comments: See Note; NOTES: [facility] Imaging Services [address] [place] [address] CAT Scan Report MR#: [id number] Acct: [id number] Name: YEYO COFFMAN Rep #: [id number] : 1935 F 78 From: Solo Wilburn MD PCP: Jess George MD Status: REG CLI Study: Chest with Contrast Date of Exam: 10/09/13 Exam# [id number] Ordering Dr: Jamilah Rushing DO STUDY: CT [...] M.D. at 10:42 EST , Service support [phone], CC: Jess George MD; Jamilah Rushing DO Race Board Attendant: Signed Jamilah Rushing DO Work Phone: Start: 10-06-2013 End: 10-06-2013 Chest PA and Lateral Comments: See Note; NOTES: [facility] Imaging Services [address] [place] [address] Radiology Report MR#: [id number] Acct: [id number] Name: YEYO COFFMAN Rep #: [id number] : 1935 F 78 From: Jeyson Kenney MD PCP: Jess George MD Status: REG CLI Study: Chest PA and Lateral Date of Exam: 10/06/13 Exam# [id number] Ordering Dr: Jamilah Rushing DO STUDY: X-RAY [...] M.D. at 13:51 EST , Service support [phone], CC: Jess George MD; Jamilah Rushing DO Race Board Attendant: Signed Jamilah Rushing DO Work Phone: Start: 07-24-2013 End: 07-24-2013 Knee 4 or More Views Comments: See Note; NOTES: [facility] Imaging Services [address] [place] [address] Radiology Report MR#: [id number] Acct: [id number] Name: YEYO COFFMAN Rep #: [id number] : 1935 F 77 From: Solo Wilburn MD PCP: Jess George MD Status: REG CLI Study: Knee 4 or More Views Date of Exam: 07/24/13 Exam# [id number] Ordering Dr: Jamilah Ruhsing DO STUDY: X-RAY - LEFT KNEE REASON [...] M.D. at 13:45 EST , Service support [phone], CC: Jess George MD; Jamilah Rushing DO Race Board Attendant: Signed Jamilah Rushing DO Work Phone: Abdominal [...] Phone: Start: 09-16-2015 Lipid panel LIPID PANEL ([id number]) [facility] Work Phone: Immunizations Immunization Date Immunization Notes Care Provider Fa nelson 10-25-2012 varicella zoster imm une globulin Jess George MD Work Phone: [facility] Work Phone: 09-01-2010 pneumococcal polysaccharide vaccine, [address] JAGDEEP LONG MD [facility] Payers Date Payer Category Payer Medicare [id number] 1935 Unknown [id number] Unknown Social History Date Type Detail Facility Tobacco smoking status [facility] an [facility] Sex Assigned At Sex [facility] n [facility] Caffeine Use Caffeine Use [facility] [...] Hospit al 12-28-2021 Mental Status [facility] 12-27-2021 Mental Status [facility] 12-27-2021 Mental Status [facility] Hospital Discharge instructions 12-28-2021 Note Date [...] Follow these instructions at home: Medicines Take [id number]-npnxlcb and prescription medicines only as told by [...] 02/20/2015 Document Revised: 12/29/2019 Document Reviewed: 06/29/2018 [employer] Patient Education 2020 [employer] Follow Up Care 12/24/2021 17:06:39 With:JAGDEEP LONG Address: [address] [address]- [phone] Business (1) When:Within 6 Week(s) Comments:Follow up in clin in 6 weeks. Call office to schedule follow up. [facility] Evaluation + Plan note 12-25-2021 Note [...] to determine if this is compatible with [facility] MRI machines. Awaiting further information. Patient noted to be on Coumadin, and has received 2 units FFP, INR has decreased from 3.1 here to 1.8; has another 1 unit FFP ordered as Dr. Long has requested to achieve INR less than 1.5. It is noted that patient received half dose of vitamin K at [facility], prior to transfer. INR reportedly resulted after patient had departed for transfer to [facility] ED. At that time it was 2.7. [...] Dr. Long to resume. Avoid NSAID use. [facility] physicians have been consulted for medical management [...] MRI Brain w/ + w/o Contrast 02/05/22 [facility] Hospital course Narrative Note Date & Type Note Facility Hospital course Narrative No data available for this section [facility] Instructions Note Date & Type Note Facility [facility] Work Phone: Progress note Note Date & Type Note Facility Progress note No data available for this section [facility] Summary Purpose Family History No Family History Records FoundUnknown Family Member Name Dates Details Brother 1 Comments:SD and CMP Status:Active Family Members In General Comments:Aunt had breast can cer Status:Active Mother Comments:Anxiety & HBP Status:Active Advance Directives No Advanced Directives Records FoundNo Advanced Directives Records FoundNo Advanced Directives Records FoundNo Advanced Directives Records FoundNo Advanced Directives Records Found Hospital Course Note HNO ID: [id number] Author: Jhonathan He Service: Hospital Medicine Author [...] DATE CREATED AUTHOR AUTHOR'S ORGANIZ ATION 07/13/2019 [facility] DATE CREATED AUTHOR AUTHOR'S ORGANIZ ATION 07/13/2019 [facility] DATE CREATED AUTHOR AUTHOR'S ORGANIZ ATION 08/21/2019 [facility] DATE CREATED AUTHOR AUTHOR'S ORGANIZ ATION 01/20/2022 [facility] ([place]) Care Team (unrecognized sect ion and content) Personnel Name: JESS GEORGE MD Address: [address] [place] [address] FOR RECORDS PERTAINING TO PATIENTS WHO [...] BE BASED ON THE PRIMARY CLINICAL RECORDS. [employer] [facility]. provides no warranty or guarantee of the accuracy or completeness of information in this document.
[2023-08-24 17:53] LABS: Lactic Acid 1.7 mmol/L (0.4-1.9)
--- NOTE | 2023-08-24 17:57 | CM.ED ---
Social Work SW introduced self and role to patient and son. Pt has been weak and having difficulty at home since being ill. Son reports he resides with her and assists her. Pt reports he helps her with meals and food. Pt reports she has a walker and a cane. Pt insists she will bounce back quickly and will not need therapy. SW did provide patient with a SNF list in case additional therapy is needed. Pt's son took the list. SW to follow for needs. Judy Castrejon DIETARY SERVICES MANAGER, [employer]PER[employer]
[2023-08-24] MEDS: 0.9% Normal Saline (1000mL) 1,000 ML 75 ML IV (18:46)
[2023-08-24 19:17] LABS: BNP,B-Type NATRIURETIC PEPTIDE 231.8 pg/mL (0-100)
[2023-08-24] MEDS: Ipratropium/Albuterol Sulfate 3 ML AMPUL.NEB INHALATION (19:28)
[2023-08-24] MEDS: guaiFENesin 1,200 MG Tablet 1200 MG PO (21:44)
[2023-08-24] MEDS: Carvedilol 6.25 MG Tablet PO (21:45)
[2023-08-24 21:54] LABS: M R Staph aureus DNA By PCR Negative (Negative); Probe Check PASS; Specimen Processing Control PASS
[2023-08-25] VITALS (8 sets, daily range): BP systolic 91–119; BP diastolic 58–84; PULSE 84–116; RESP 18–22; TEMP 36.6–37.7; O2SAT 90–97; BMI 27.8
[2023-08-25] MEDS: Acetaminophen 325 MG Tablet 650 MG PO (03:01)
[2023-08-25] MEDS: Ipratropium/Albuterol Sulfate 3 ML AMPUL.NEB INHALATION ×3 (07:06→19:34)
[2023-08-25 07:40] LABS: Absolute Lymphocyte Count 1.54 X10^3/uL (0.83-4.51); Absolute Neutrophil Count 8.6 X10^3/uL (2.0-7.7); Basophil# 0.04 X10^3/uL; Basophil% 0.3 % (0-1); Eosinophil# 0.03 X10^3/uL; Eosinophils% 0.3 % (0-5); Hematocrit 34.2 % (37-47); Hemoglobin 11.6 g/dL (12.0-15.0); Lymphocyte # 1.54 X10^3/ul (0.83-4.51); Lymphocyte % 12.9 % (19-41); Mean Corp Hgb Conc 33.9 g/dL (32-36); Mean Corpuscular Hgb 32.2 pg (27.0-32.0); Mean Platelet Vol. 10.1 fl (6.2-12.0); Monocyte# 1.64 X10^3/uL; Monocyte% 13.7 % (0-10); NRBC Flagged by Analyzer 0 % (0-5); Neutrophil # 8.64 X10^3/uL (2.7-7.7); POSITIVE DIFFERENTIAL YES; Platelet Count 209 K/mm3 (150-450); RBC Distribution Width CV 12.1 % (11.6-14.6); RBC Distribution Width SD 42.5 fl (35.1-43.9)
[2023-08-25 07:48] LABS: Differential Indicated SCAN CRITERIA MET
[2023-08-25 08:10] LABS: ALB/GLOB Ratio 0.6 RATIO (0.9-2.4); AST(SGOT) 47 U/L (15-37); Alanine Aminotransfer ALT/SGPT 32 U/L (13-56); Albumin, Serum 2.5 g/dL (3.2-5.0); Alkaline Phosphatase 88 U/L (45-117); Anion Gap 7 (5-15); BUN 43 mg/dL (7-18); BUN/Creat Ratio 42.2 RATIO (10-20); Chloride 107 mmol/L (98-107); Creatinine, Serum 1.02 mg/dL (0.55-1.02); EST Glomerular Filtration Rate 55 mL/min (>60); Est Glom Filt Rate - Afr Amer 66 mL/min (>60); Estimated Creatinine Clearance 42.54 ml/min; Globulin 4.2 g/dL (2.2-4.2); Glucose 136 mg/dL (74-106); Phosphorus 3.4 mg/dL (2.5-4.9); Potassium 3.2 mmol/L (3.5-5.1); Protein, Total 6.7 g/dL (6.4-8.2); Sodium Level 138 mmol/L (136-145)
--- NOTE | 2023-08-25 08:22 | PN.HOSP_ITS ---
Reason for Visit Reason for Visit: Diagnoses Elevated white blood cell count, unspecified (08/24/23) Other disorders of bilirubin metabolism (08/24/23) Hypokalemia (08/24/23) Pneumonia, unspecified organism (08/24/23) Acute kidney failure, unspecified (08/24/23) Shortness of breath (08/24/23) Weakness (08/24/23) Other malaise (08/24/23) Subjective Subjective Pt still SOB and coughing but feeling better than yesterday, weakness improving Objective Data Objective Data Vital Signs: Vital Signs Temp Pulse Resp BP Pulse Ox O2 Del Method 100 F H 86 18 100/72 97 Room Air 08/25/23 03:06 08/25/23 07:07 08/25/23 07:07 08/25/23 03:06 08/25/23 07:07 08/25/23 07:44 Oxygen Delivery Method Room Air Weight: 78.1 kg Body Mass Index (BMI) 27.8 Intake & Output: Intake and Output for Last 24 Hours 08/23/23 08/24/23 08/25/23 23:59 23:59 23:59 Intake Total 305 / 505 1440 / 1440 Balance 305 / 505 1440 / 1440 Lab / Micro Data 08/25/23 07:00 08/25/23 07:00 Labs: Laboratory Results - last 24 hr 08/24/23 15:34: WBC 13.9 H, RBC 3.90 L, Hgb 12.5, Hct 37.1, MCV 95.1, MCH 32.1 H , MCHC 33.7, RDW Std Deviation 42.4, RDW Coeff of Chase 12.2, Plt Count 210, MPV 9.8, Immature Gran % (Auto) 0.400, Neut % (Auto) 76.6 H, Lymph % (Auto) 12.2 L, Dukes % (Auto) 10.4 H, Eos % (Auto) 0.1, Baso % (Auto) 0.3, Absolute Neuts (auto) 10.6 H, Absolute Lymphs (auto) 1.69, Nucleated RBC % 0, Sodium 137, Potassium 2.8 L, Chloride 99, Carbon Dioxide 27.0, Anion Gap 11, BUN 53 H, Creatinine 1.41 H, Est GFR (MDRD) Af Amer 46 L, Est GFR (MDRD) Non-Af 38 L, BUN/Creatinine Ratio 37.6 H, Glucose 131 H, Calcium 9.7, Magnesium 2.2, Total Bilirubin 1.30 H, AST 39 H, ALT 27, Alkaline Phosphatase 88, Troponin I High Sens 15, B-Natriuretic Peptide 231.8 H, Total Protein 7.1, Albumin 2.8 L, Globulin 4.3 H, Albumin/Globulin Ratio 0.7 L 08/24/23 16:34: Urine Color Yellow, Urine Clarity Clear, Urine pH 6.0, Ur Specific [place] 1.005, Urine Protein Negative, Urine Glucose (UA) Normal, Urine Ketones Negative, Urine Occult Blood Negative, Urine Nitrite Negative, Urine Bilirubin Negative, Urine Urobilinogen Normal, Ur Leukocyte Esterase 25 H, Urine RBC 0 SEEN, Urine WBC 0-5 SEEN, Ur Squamous Epith Cells 0-5 SEEN, Ur Renal Epithelial Cell 0-5 SEEN, Urine Bacteria 0 SEEN, Urine Mucus 0 SEEN 08/24/23 16:47: Lactic Acid 1.7 08/24/23 20:14: MRSA (PCR) Negative 08/25/23 07:00: WBC 12.0 H, RBC 3.60 L, Hgb 11.6 L, Hct 34.2 L, MCV 95.0, MCH 32.2 H, MCHC 33.9, RDW Std Deviation 42.5, RDW Coeff of Chase 12.1, Plt Count 209, MPV 10.1, Immature Gran % (Auto) 0.800, Neut % (Auto) 72.0 H, Lymph % (Auto) 12.9 L, Dukes % (Auto) 13.7 H, Eos % (Auto) 0.3, Baso % (Auto) 0.3, Absolute Neuts (auto) 8.6 H, Absolute Lymphs (auto) 1.54, Nucleated RBC % 0, Sodium 138, Potassium 3.2 L, Chloride 107, Carbon Dioxide 24.0, Anion Gap 7, BUN 43 H, Creatinine 1.02, Estim Creat Clear Calc 42.54, Est GFR (MDRD) Af Amer 66, Est GFR (MDRD) Non-Af 55 L, BUN/Creatinine Ratio 42.2 H, Glucose 136 H, Calcium 9.0, Phosphorus 3.4, Magnesium 2.0, Total Bilirubin 1.00, AST 47 H, ALT 32, Alkaline Phosphatase 88, Total Protein 6.7, Albumin 2.5 L, Globulin 4.2, Albumin/Globulin Ratio 0.6 L Micro: Microbiology 08/24/23 19:30 Mucosa - Nasopharyngeal Respiratory Panel (PCR) - Final 08/24/23 16:34 Urine, Random Legionella Antigen - Final 08/24/23 16:34 Urine, Random Streptococcus pneumoniae Antigen (M - Final 08/24/23 15:34 Mucosa - Nose SARS-CoV-2, Influenza & RSV (PCR) - Final Radiography Diagnostic Testing: Radiology Impression Chest X-Ray 08/24/23 15:57 IMPRESSION: Persistent right lower lobe infiltrate with slight interval progression since prior study Electronically Signed: Chuckie Flores MD at 16:11 EST Reading Location ID and State: [facility] / [place] Tel , Service support , Physical Exam Narrative General: Alert, oriented, no apparent distress HEENT: Atraumatic, normocephalic Eyes: Anicteric, normal conjunctiva, extraocular movements grossly intact Neck: Supple Respiratory: Increased respiratory effort Cardiovascular: Regular rate GI: Soft, nontender, nondistended Extremities: No edema Musculoskeletal: Moving all extremities Neuro: No overt focal neurological deficits Skin: No rashes appreciated Psych: Cooperative Assessment & Plan Assessment/Plan (1) Acute kidney injury: (2) Hypokalemia: (3) Pneumonia: (4) Leukocytosis: (5) Hyperbilirubinemia: (6) Debility: (7) Generalized weakness: (8) Shortness of breath: PLAN: Plan Shortness of breath secondary to right lower lobe pneumonia -Patient not hypoxic at rest however I do anticipate with exertion she may become hypoxic as her oxygen saturations at rest are only 93% -COVID/flu/RSV PCR pending -Check respiratory viral panel -Check strep pneumo and Legionella antigens -Continue ceftriaxone and azithromycin -Check MRSA PCR and if positive add vancomycin--overall low risk for staph pneumonia however -As needed albuterol -I-S -Acapella 10 times every 2 hours -Guaifenesin 1200 mg p.o. twice daily -As needed antitussives -08/25: 97% on RA, resp viral panel neg, sputum cx pending, continue nebs and Mucinex, is improving Hypokalemia -Patient was given 40 mill colons p.o. potassium in the emergency department and will receive another 40 mill equivalents on the floor -Repeat lab in a.m. -Check a.m. magnesium level -08/25: Replace YOHANA -Baseline serum creatinine appears to run between 0.7 and 1.0 -P.o. intake has been poor with both solids and liquids -Serum creatinine presentation 1.41 -Patient received 1 L bolus in the emergency department and I will repeat 1 more liter after admission -Hold home diuretics and hold home losartan until renal function improves -08/25: Improving, still on IV fluids Mild hyperbilirubinemia -Likely related to acute illness -Repeat liver function in a.m. -08/25: Resolved Generalized weakness/debility -Likely due to acute illness -PT/OT consultation -Case management/social work consultation for assistance with discharge planning--> hoping patient clinically enough to only need home health and not placement -08/25: PT/OT Nonobstructive CAD/HTN/HPL/cardiomyopathy/mild -Aspirin and anticoagulation are contraindicated due to her history of cerebral amyloid angiopathy and previous intracerebral hemorrhages -Last echocardiogram from 06/30/2023 shows an EF of 35% with severe biatrial dilation and moderate tricuspid and mitral valve insufficiency, right ventricu lar systolic pressure 30 mmHg and mild aortic stenosis -Continue home carvedilol -Continue Zetia--> patient has statin allergy -Hold Lasix and hydrochlorothiazide -Hold home losartan -As needed hydralazine for systolic and 160 -Continue outpatient cardiology follow-up -08/25: Continue current management Paroxysmal atrial fibrillation -Beta-judie -Anticoagulation is contraindicated due to her history of cerebral amyloid angiopathy and this intracerebral hemorrhages -Patient does have implantable loop recorder -08/25: Decrease dose of beta-judie for blood pressure but patient asymptomatic Cerebral amyloid angiopathy -History of intracerebral hemorrhages -Anticoagulation and antiplatelet therapy is contraindicated due to this -No current concerns History of TIA -Antiplatelet therapy and Coumadin contraindicated DVT prophylaxis -Subcu heparin 5000 units twice daily CODE STATUS -DNR CCA okay for short-term intubation per discussion on admission Time spent in the patient's overall evaluation,decision-making process, review of diagnostic data, adjustment of management, discussion with other providers, nursing nursing and ancillary staff involved in patient's care documentation, 35 minutes Capacity Legal [employer] Practitioner Reflex Medical hold order details:: IF a medical hold is selected below, a suggested order for a MEDICAL HOLD will reflex upon signing the document. Next of kin: [place] law dictates a PRIORITY LIST for identifying legal decision-maker/legal next of kin in the following order (LNOK): 1st: The patient?s legal guardian, if any 2nd: The patient's spouse (if status is questionable, consult Risk Management) 3rd: The patient?s adult child(domenico) (majority, if multiple children) 4th: The patient?s parents 5th: The patient?s adult siblings (majority, if multiple children siblings) Charges/Coding Visit Charges Inpatient E&M: 67217 Subs Hosp L2
[2023-08-25 08:49] LABS: Differential Comment S
[2023-08-25] MEDS: Carvedilol 6.25 MG Tablet PO (09:05)
[2023-08-25] MEDS: 0.9% Saline Lock 10 ML Syringe IV (09:05)
[2023-08-25] MEDS: Ceftriaxone 2 GM in 0.9% Normal Saline (50mL MB+) 50 ML IV (09:05)
[2023-08-25] MEDS: Potassium Chloride Oral Tablet 20 MEQ 60 MEQ PO (09:05)
[2023-08-25] MEDS: guaiFENesin 1,200 MG Tablet 1200 MG PO ×2 (09:05→20:36)
[2023-08-25] MEDS: Calcium Carb/Vitamin D 1 TABLET Tablet PO (09:05)
[2023-08-25] MEDS: Ezetimibe 10 MG Tablet PO (09:05)
[2023-08-25] MEDS: Azithromycin 500 MG in Dextrose 5%-Water (250mL Bag) 250 ML 250 MG IV (10:36)
--- NOTE | 2023-08-25 11:20 | CASEMGMT ---
JELANI CORNELIUS Face to Face with patient for initial transition planning/care coordination assessment. RN CM introduced self and role at [facility]. Patient sitting in chair, alert and oriented. Patient willing to participate in assessment and is able to answer all questions appropriately. Care providers, pharmacy, and demographics verified. Patient wishes to discharge home, denies need for home health at this time. Patient states she has no further needs or concerns at this time. CM to follow for discharge planning needs that may arise. PCP: [facility] Specialists: Bay, neurologist; PATRICK, shape brick molder; Preferred Pharmacy: [facility] Insurance: [employer] Prescription Benefit: yes Living Will/HPOA: yes, daughter Macarena Coffman LNOK: daughter, son Living Arrangements: Patient lives with son in a single story home with son with 1 step to enter. Patient is independent at home. Transportation: self, son DME/HHC: Patient has shower chair, raised toilet, cane, walker, rollator, and grab bars. Patient has been to [facility] in the past. Patient has had [facility] in the past. Disposition Plan: Patient to discharge home with family support and follow-up plans in place. Will monitor for home oxygen at discharge. Krissy NINO, RN, CM
--- NOTE | 2023-08-25 12:44 | CHAPLAIN ---
Type of Pastoral Visit _x__ Initial Visit ___ Follow-up Visit ___ On-call Visit ___ General Patient Visit ___ Spiritual Assessment ___ Family Conference ___ Bereavement ___ Rapid Response ___ Code Blue ___ Other (describe below) Pastoral Care Referral From _x__ Patient ___ Family ___ Nurse ___ Physician ___ Crane Hooker ___ Block Out Machine Operator ___ Other (describe below) Sacrament/Intervention _x__ Active listening ___ Anointing ___ Orthodoxy ___ Bereavement ___ Communion _x__ Lilian exploration ___ ___ Life review _x__ Prayer ___ Reconciliation ___ Sacrament of Sick ___ Supportive presence ___ Wedding ___ Other (describe below) Pastoral Comments patient is [place] but engages in conversation, describing her illness and how she came to be in the hospital; pt has a yarsani connection and would like them to know she is admitted; this prison librarian notified the yarsani for her; pt would like prayer and that was given; pt is expressive of the support given for spiritual care
[2023-08-25] MEDS: Ensure Plus High Protein 120 ML LIQUID PO (17:52)
[2023-08-25] MEDS: Carvedilol 3.125 MG TABLET PO (20:42)
[2023-08-26] VITALS (7 sets, daily range): BP systolic 96–116; BP diastolic 65–85; PULSE 89–121; RESP 15–20; TEMP 36.6–37.2; O2SAT 90–95; BMI 27.6
[2023-08-26] MEDS: Digoxin 250 MCG/ML Ampul 125 MCG IV (00:54)
[2023-08-26] MEDS: 0.9% Saline Lock 10 ML Syringe IV (00:55)
[2023-08-26] MEDS: Ipratropium/Albuterol Sulfate 3 ML AMPUL.NEB INHALATION (06:59)
[2023-08-26 07:52] LABS: Absolute Lymphocyte Count 1.77 X10^3/uL (0.83-4.51); Absolute Neutrophil Count 6.4 X10^3/uL (2.0-7.7); Basophil# 0.05 X10^3/uL; Basophil% 0.5 % (0-1); Eosinophil# 0.04 X10^3/uL; Eosinophils% 0.4 % (0-5); Hematocrit 34.4 % (37-47); Hemoglobin 11.7 g/dL (12.0-15.0); Lymphocyte # 1.77 X10^3/ul (0.83-4.51); Lymphocyte % 18.3 % (19-41); Mean Corpuscular Hgb 32.4 pg (27.0-32.0); Mean Corpuscular Volume 95.3 fL (81-99); Mean Platelet Vol. 9.9 fl (6.2-12.0); Monocyte# 1.37 X10^3/uL; Monocyte% 14.2 % (0-10); NRBC Flagged by Analyzer 0 % (0-5); Neutrophil # 6.38 X10^3/uL (2.7-7.7); Neutrophil % 65.9 % (47-70); Platelet Count 243 K/mm3 (150-450); RBC Distribution Width CV 12.3 % (11.6-14.6); Red Blood Count 3.61 M/mm3 (4.2-5.4); White Blood Count 9.7 K/mm3 (4.4-11.0)
[2023-08-26 08:24] LABS: Anion Gap 6 (5-15); BUN 30 mg/dL (7-18); BUN/Creat Ratio 37.1 RATIO (10-20); Calcium,Total 9.5 mg/dL (8.5-10.1); Chloride 112 mmol/L (98-107); Creatinine, Serum 0.81 mg/dL (0.55-1.02); EST Glomerular Filtration Rate 71 mL/min (>60); Est Glom Filt Rate - Afr Amer 86 mL/min (>60); Estimated Creatinine Clearance 53.47 ml/min; Glucose 123 mg/dL (74-106); Potassium 3.6 mmol/L (3.5-5.1); Sodium Level 140 mmol/L (136-145)
[2023-08-26] MEDS: Calcium Carb/Vitamin D 1 TABLET Tablet PO (08:45)
--- NOTE | 2023-08-26 09:26 | NURSING ---
Pt ambulated from chair to bathroom and around large loop. Pt talking to RN the entire time, denies SOB. See oxygen documentation.
[2023-08-26] MEDS: Ceftriaxone 2 GM in 0.9% Normal Saline (50mL MB+) 50 ML IV (09:36)
[2023-08-26] MEDS: guaiFENesin 1,200 MG Tablet 1200 MG PO (09:36)
[2023-08-26] MEDS: Ezetimibe 10 MG Tablet PO (09:36)
[2023-08-26] MEDS: Metoprolol Tartrate 25 MG Tablet 12.5 MG PO (09:37)
[2023-08-26 09:47] LABS: Pathologist Review Reviewed
[2023-08-26] MEDS: Azithromycin 500 MG in Dextrose 5%-Water (250mL Bag) 250 ML 250 MG IV (10:53)
--- NOTE | 2023-08-26 10:54 | CASEMGMT ---
Per nursing admission questions patient does not have a Healthcare Power of Auto Body Worker or Healthcare Living Will and is not interested in documents. Serenity Martinez LICENSING DIRECTOR EZRA
--- NOTE | 2023-08-26 13:02 | DS.PCM_ITS ---
Providers Date of Admission: 08/24/23 Date of Discharge: 08/26/23 Primary Care Physician: Dr. Robyn Serrato DO Reason For Visit: PNEUMONIA/DEBILITY Diagnosis Discharge Diagnosis (1) Acute kidney injury: Status: Acute Code(s): N17.9 - Acute kidney failure, unspecified (2) Hypokalemia: Status: Acute Code(s): E87.6 - Hypokalemia (3) Pneumonia: Status: Acute Code(s): J18.9 - Pneumonia, unspecified organism (4) Leukocytosis: Status: Acute Code(s): D72.829 - Elevated white blood cell count, unspecified (5) Hyperbilirubinemia: Status: Acute Code(s): E80.6 - Other disorders of bilirubin metabolism (6) Debility: Status: Acute Code(s): R53.81 - Other malaise (7) Generalized weakness: Status: Acute Code(s): R53.1 - Weakness (8) Shortness of breath: Status: Acute Code(s): R06.02 - Shortness of breath Plan Shortness of breath secondary to right lower lobe pneumonia Hypokalemia- resolved YOHANA- resolved Mild hyperbilirubinemia- resolved Generalized weakness/debility Nonobstructive CAD/HTN/HPL/cardiomyopathy/mild Paroxysmal atrial fibrillation Cerebral amyloid angiopathy History of TIA Medications at Discharge Home Medications calcium carbonate 600 mg-vitamin D3 5 mcg (200 unit) tablet 1 ea PO DAILY SUPPLEMENT 09/17/16 ezetimibe 10 mg tablet 10 mg PO DAILY COLESTEROL #90 tabs 11/09/22 losartan 25 mg tablet 25 mg PO BID HIGH BLOOD PRESSURE #180 tabs 06/22/23 potassium chloride 20 mEq tablet,extended release 20 meq PO DAILY SUPPLEMENT #30 tabs 07/20/23 meclizine 25 mg tablet 25 mg PO TID PRN DIZZINESS #30 tabs 08/05/23 albuterol sulfate 90 mcg/actuation aerosol inhaler See Rx Instructions .Route .COMPLEX PRN shortness of breath or wheezing #8.5 grams 08/26/23 amoxicillin 875 mg-potassium clavulanate 125 mg tablet 1 tab PO BID 4 days #9 tabs 08/26/23 azithromycin 500 mg tablet 500 mg PO DAILY 2 days #2 tabs 08/26/23 carvedilol 6.25 mg tablet 3.125 mg (1/2 x 6.25 mg) PO BID HEART #60 tabs furosemide 40 mg tablet (Lasix) 20 mg (1/2 x 40 mg) PO DAILY FLUID RETENTION #30 tabs 08/26/23 Hospital Course Summary of Care Provided Minutes Spent on Discharge: 31 Hospital Course: 87-year-old female history of TIA, paroxysmal A-fib, hypertension presented to [facility] 08/24/2023 with generalized weakness and short of breath. She is found to have right lower lobe pneumonia and YOHANA and was treated with antibiotics and supportive care as well as fluids and improved significantly. On day of discharge she was ambulating independently and did not need O2, she had no new complaints and felt her cough and shortness of breath were both improving. Discharge instructions as follows: -You will be discharged on 2 days of azithromycin with first dose today and 4 more days of Augmentin with first dose tonight and you will also be given a short-term prescription for an inhaler to use as needed -Due to low blood pressures your hydrochlorothiazide and losartan have been held and your carvedilol has been decreased. These may need to be restarted over time so it is advised to check her blood pressure daily and log this and follow- up with her physician -Your Lasix were decreased to 20 mg daily given your kidney function on presentation -Weigh yourself every day. A sudden weight gain can mean you are retaining fluid. Weigh yourself at the same time of day and in the same kind of clothes. Ideally, weigh yourself first thing in the morning after you empty your bladder, but before you eat breakfast. -Please call your physician if your weight goes up by more than 2 pounds in 1 day or 5 pounds in 1 week. This can be a sign that you are retaining more fluid than you should be. -Please call your primary care provider's office upon discharge to schedule a hospital follow up within 1 week. -For any concerning signs or symptoms please call 911 or proceed to the nearest emergency department Physical Exam Narrative General: Alert, oriented, no apparent distress HEENT: Atraumatic, normocephalic Eyes: Anicteric, normal conjunctiva, extraocular movements grossly intact Neck: Supple Respiratory: Increased respiratory effort Cardiovascular: Regular rate GI: Soft, nontender, nondistended Extremities: No edema Musculoskeletal: Moving all extremities Neuro: No overt focal neurological deficits Skin: No rashes appreciated Psych: Cooperative Weight / BMI Weight Weight: 77.8 kg Body Mass Index (BMI) 27.6 ABG / Lab / Microbiology Data 08/26/23 07:05 08/26/23 07:05 Laboratory: Laboratory Results - last 24 hr 08/25/23 07:00: Diff Path Review Reviewed 08/26/23 07:05: WBC 9.7, RBC 3.61 L, Hgb 11.7 L, Hct 34.4 L, MCV 95.3, MCH 32.4 H, MCHC 34.0, RDW Std Deviation 43.0, RDW Coeff of Chase 12.3, Plt Count 243, MPV 9.9, Immature Gran % (Auto) 0.700, Neut % (Auto) 65.9, Lymph % (Auto) 18.3 L, [place] % (Auto) 14.2 H, Eos % (Auto) 0.4, Baso % (Auto) 0.5, Absolute Neuts (auto) 6.4, Absolute Lymphs (auto) 1.77, Nucleated RBC % 0, Sodium 140, Potassium 3.6, Chloride 112 H, Carbon Dioxide 22.0, Anion Gap 6, BUN 30 H, Creatinine 0.81, Estim Creat Clear Calc 53.47, Est GFR (MDRD) Af Amer 86, Est GFR (MDRD) Non-Af 71, BUN/Creatinine Ratio 37.1 H, Glucose 123 H, Calcium 9.5 Microbiology: Microbiology 08/24/23 20:20 Sputum, Expectorated/Coughed Gram Stain - Final 08/24/23 19:30 Mucosa - Nasopharyngeal Respiratory Panel (PCR) - Final 08/24/23 16:34 Urine, Random Legionella Antigen - Final 08/24/23 16:34 Urine, Random Streptococcus pneumoniae Antigen (M - Final 08/24/23 15:34 Mucosa - Nose SARS-CoV-2, Influenza & RSV (PCR) - Final D/C Instructions Discharge Diet: No restrictions Meaningful Use Info Meaningful Use Diagnoses (Choose all that apply): None applicable Discharge Plan Admission Admit Date/Time: 08/24/23 17:15 Primary Reason for Your Visit: Weakness, shortness of breath Attending Provider: Sharifa Trevizo Primary Care Provider: Robyn Serrato Consulting Providers: Herminia Zuniga Instructions Patient Instructions: ED Fall Prevention Additional Instructions / Restrictions: DISCHARGE INSTRUCTIONS PLEASE READ *Please take this with you to your next doctors appointment* -You will be discharged on 2 days of azithromycin with first dose today and 4 more days of Augmentin with first dose tonight and you will also be given a short-term prescription for an inhaler to use as needed -Due to low blood pressures your hydrochlorothiazide and losartan have been held and your carvedilol has been decreased. These may need to be restarted over time so it is advised to check her blood pressure daily and log this and follow- up with her physician -Your Lasix were decreased to 20 mg daily given your kidney function on presentation -Weigh yourself every day. A sudden weight gain can mean you are retaining fluid. Weigh yourself at the same time of day and in the same kind of clothes. Ideally, weigh yourself first thing in the morning after you empty your bladder, but before you eat breakfast. -Please call your physician if your weight goes up by more than 2 pounds in 1 day or 5 pounds in 1 week. This can be a sign that you are retaining more fluid than you should be. -Please call your primary care provider's office upon discharge to schedule a hospital follow up within 1 week. -For any concerning signs or symptoms please call 911 or proceed to the nearest emergency department Discharge Orders/Prescriptions Prescriptions: New albuterol sulfate 90 mcg/actuation HFA aerosol inhaler See Rx Instructions .ROUTE .COMPLEX PRN (Reason: shortness of breath or wheezing) Qty: 8.5 0RF Rx Instructions: 1-2 puffs every 4-6 hours as needed for shortness of breath or wheezing amoxicillin-pot clavulanate 875-125 mg tablet 1 tab PO BID 4 Days Qty: 9 0RF azithromycin 500 mg tablet 500 mg PO DAILY 2 Days Qty: 2 0RF Rx Instructions: First dose 08/26 Continued calcium carbonate-vitamin D3 1 EACH tablet 1 ea PO DAILY meclizine 25 mg tablet 25 mg PO TID PRN (Reason: DIZZINESS ) Qty: 30 0RF ezetimibe 10 mg tablet 10 mg PO DAILY Qty: 90 3RF potassium chloride 20 mEq tablet extended release 20 meq PO DAILY Qty: 30 11RF Changed furosemide [Lasix] 40 mg tablet 20 mg PO DAILY Qty: 30 11RF Patient Comments: PT LIST STATES IN THE AM carvedilol 6.25 mg tablet 3.125 mg PO BID Qty: 60 11RF Held losartan 25 mg tablet 25 mg PO BID Qty: 180 3RF Hold Instructions: Resume on 09/01/23. Discontinued doxycycline monohydrate 100 mg tablet 100 mg PO BID hydrochlorothiazide 12.5 mg capsule 12.5 mg PO DAILY Qty: 90 3RF Patient Comments: PT LIST STATES IN THE AM Referrals / Follow Up: Robyn Serrato DO [Primary Care Provider] - Within 1 Week (Please call the office to schedule an appt within the next week. ) Disposition Disposition (needs filled in before D/C Order can be placed): Home, Self Care Charges/Coding Visit Charges Inpatient E&M: 77092 Disch Hosp >30min
--- NOTE | 2023-08-26 13:15 | CASEMGMT ---
JELANI CORNELIUS NOTE: Pt being discharged. Home O2 testing has been done and pt does not qualify for O2. JELANI CORNELIUS to room. Introduced self and role. Pt sitting up in chair in room. Son @ bedside. Pt states she feels safe discharging home. Son inquired if pt could stay in the hospital tonight and have the OP ST that is scheduled for tomorrow been done while pt is still in the hospital. JELANI CORNELIUS informed him that pt does not have medical necessity for staying in the hospital overnight and that ST can be done as an OP. Pt states she prefers to go home anyways today, as she states she wants to be able to sleep in her own bed. She states her daughter will take her to the ST tomorrow morning. Pt denies having any discharge needs. Maria Fernanda NINO RN, CM
--- NOTE | 2023-08-26 14:46 | PHA.DC.MC.R ---
Pharmacy [facility] has performed discharge medication reconciliation and counseling for this patient. 1. ALBUTEROL MDI 1-2PUFFS Q4-6 HOURS PRN WHEEZING/SOB 2. AUGMENTIN 875/125MG PO BID X 4 DAYS 3. AZITHROMYCIN 500MG PO DAILY X 2 DAYS The patient's discharge medication list was reviewed for discrepancies and discrepancies were resolved. The patient was counseled on the following discharge medications and changes in medications for homegoing were reviewed. The Reason for Use, instructions for use, and potential side effects were reviewed for all new medications. The patient's questions regarding all of their medications were answered. The patient was able to verbally demonstrate an understanding of their discharge medications. Medications at Discharge Home Medications calcium carbonate 600 mg-vitamin D3 5 mcg (200 unit) tablet 1 ea PO DAILY SUPPLEMENT 09/17/16 ezetimibe 10 mg tablet 10 mg PO DAILY COLESTEROL #90 tabs 11/09/22 losartan 25 mg tablet 25 mg PO BID HIGH BLOOD PRESSURE #180 tabs 06/22/23 potassium chloride 20 mEq tablet,extended release 20 meq PO DAILY SUPPLEMENT #30 tabs 07/20/23 meclizine 25 mg tablet 25 mg PO TID PRN DIZZINESS #30 tabs 08/05/23 albuterol sulfate 90 mcg/actuation aerosol inhaler See Rx Instructions .Route .COMPLEX PRN shortness of breath or wheezing #8.5 grams 08/26/23 amoxicillin 875 mg-potassium clavulanate 125 mg tablet 1 tab PO BID 4 days #9 tabs 08/26/23 azithromycin 500 mg tablet 500 mg PO DAILY 2 days #2 tabs 08/26/23 carvedilol 6.25 mg tablet 3.125 mg (1/2 x 6.25 mg) PO BID HEART #60 tabs 08/26/23 furosemide 40 mg tablet (Lasix) 20 mg (1/2 x 40 mg) PO DAILY FLUID RETENTION #30 tabs 08/26/23
== END 2023-08-26 14:17 | disposition home or self-care (01) | DRG 194 ==
LOC: ED 16:25 → PCU 17:43
PROVIDERS: Admitting Provider Internal Medicine; Emergency Provider Emergency Medicine; PCP Family Medicine; Visit Provider Internal Medicine
DX: J18.9 Pneumonia, unspecified organism (principal); N17.9 Acute kidney failure, unspecified; I42.9 Cardiomyopathy, unspecified; I48.0 Paroxysmal atrial fibrillation; I10 Essential (primary) hypertension; I35.0 Nonrheumatic aortic (valve) stenosis; E87.6 Hypokalemia; I25.10 Atherosclerotic heart disease of native coronary artery without angina pectoris; E78.5 Hyperlipidemia, unspecified; I68.0 Cerebral amyloid angiopathy; E80.6 Other disorders of bilirubin metabolism; E80.7 Disorder of bilirubin metabolism, unspecified; R53.1 Weakness; Z66 Do not resuscitate; R53.81 Other malaise; R05.9 Cough, unspecified; R06.00 Dyspnea, unspecified; Z86.73 Personal history of transient ischemic attack (TIA), and cerebral infarction without residual deficits
CPT/HCPCS: 36415; 71045; 71046; 80048; 80053; 81001; 83605; 83735; 83880; 84100; 84484; 85025; 87070; 87205; 87449; 87631; 87633; 87641; 93005; 94640; 94668; 97161; 97165; 99252; 99284; J7030; J7040; A4216; G0463

== ENCOUNTER → 2023-10-01 | Outpatient (CLI) | payer MEDICARE, SELFPAY ==
--- OUTSIDE RECORDS SUMMARY | 2023-10-01 07:14 | XMS RPT_ITS | CCD ---
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 Role Phone MARISABEL, BRIAN E Unavailable [...] Primary Care Physician Jess George MD Unavailable [phone] Raciel Ribeiro Unavailable Adrián Iqbal Unavailable Jess George MD Unavailable JESSICA Blackmon LPN Unavailable Unavailable Unavailable Unavailable Allergies Allergy Classification Reported Allergen(s) Allergy Type Date of Onset Reaction(s) Facility (1 source) Adhesive Tape; Translations: [ADHESIVE TAPE (ROSINS)] Propensity to adverse reactions (disorder) 06-18-20 08 [facility] Repository (2 sources) codeine; Translations: [CODEINE] Drug Allergy 08-25-19 [facility] Repository (1 source) Latex; Translations: [LATEX] Propensity to adverse reactions to drug (disorder) 10-04-19 10 [facility] Repository (1 source) Sulfonamides (Antibiotic); Translations: [SULFA (SULFONAMIDE ANTIBIOTICS)] Propensity to adverse reactions to drug (disorder) 08-25-19 [facility] Repository (1 source) Sulfamethoxazole ; Translations: [sulfamethoxazol e] Drug Allergy Clammy skin (finding) [place] (3 sources) Lovastatin; Translations: [Lovastatin *ANTIHYPERLIPIDE MICS*] [...] temperature 97.7 [degF] DR JAGDEEP LONG MD [place] 12-28-2021 08:31-0400 Diastolic blood pressure 80 mm[Hg] DR JAGDEEP LONG MD [place] 12-28-2021 08:31-0400 Heart rate 117 /min DR JAGDEEP LONG MD [place] 12-28-2021 08:31-0400 Mean blood pressure 92 mm[Hg] DR JAGDEEP LONG MD [place] 12-28-2021 08:31-0400 Reason For Taking VItal Signs DR JAGDEEP LONG MD [place] 12-28-2021 08:31-0400 Respiratory rate 18 /min DR JAGDEEP LONG MD [place] 12-28-2021 08:31-0400 Systolic blood pressure 116 mm[Hg] DR JAGDEEP LONG MD [place] 12-28-2021 03:53-0400 Body temperature 97.7 [degF] DR JAGDEEP LONG MD [place] 12-28-2021 03:53-0400 Diastolic blood pressure 68 mm[Hg] DR JAGDEEP LONG MD [place] 12-28-2021 03:53-0400 Heart rate 105 /min DR JAGDEEP LONG MD [place] 12-28-2021 03:53-0400 Mean blood pressure 88 mm[Hg] DR JAGDEEP LONG MD [place] 12-28-2021 03:53-0400 Reason For Taking VItal Signs DR JAGDEEP LONG MD [place] 12-28-2021 03:53-0400 Respiratory rate 18 /min DR JAGDEEP LONG MD [place] 12-28-2021 03:53-0400 Systolic blood pressure 128 mm[Hg] DR JAGDEEP LONG MD [place] 12-27-2021 22:31-0400 Body temperature 98.06 [degF] DR JAGDEEP LONG MD [place] 12-27-2021 22:31-0400 Diastolic blood pressure 74 mm[Hg] DR JAGDEEP LONG MD [place] 12-27-2021 22:31-0400 Heart rate 101 /min DR JAGDEEP LONG MD [place] 12-27-2021 22:31-0400 Mean blood pressure 88 mm[Hg] DR JAGDEEP LONG MD [place] 12-27-2021 22:31-0400 Reason For Taking VItal Signs DR JAGDEEP LONG MD [place] 12-27-2021 22:31-0400 Respiratory rate 18 /min DR JAGDEEP LONG MD [place] 12-27-2021 22:31-0400 Systolic blood pressure 116 mm[Hg] DR JAGDEEP LONG MD [address] [place] [address] 12-27-2021 05:28-0400 Heart rate 109 /min DR JAGDEEP LONG MD [place] 12-27-2021 05:10-0400 Diastolic Blood Pressure NBP [address] JAGDEEP LONG MD [place] 12-27-2021 05:10-0400 Systolic Blood Pressure NBP [address] JAGDEEP LONG MD [place] 12-27-2021 05:03-0400 Diastolic Blood Pressure NBP [address] JAGDEEP LONG MD [place] 12-27-2021 05:03-0400 Systolic Blood Pressure NBP [address] JAGDEEP LONG MD [place] 12-27-2021 04:25-0400 Diastolic Blood Pressure NBP [address] JAGDEEP LONG MD [place] 12-27-2021 04:25-0400 Mean blood pressure 84 mm[Hg] DR JAGDEEP LONG MD [place] 12-27-2021 04:25-0400 Systolic Blood Pressure NBP [address] JAGDEEP LONG MD [place] 12-26-2021 23:21-0400 Mean blood pressure 104 mm[Hg] DR JAGDEEP LONG MD [place] 12-26-2021 19:49-0400 Mean blood pressure 95 mm[Hg] DR JAGDEEP LONG MD [place] 12-25-2021 14:05-0400 Signs/Symptoms Transfusion Reaction DR JAGDEEP LONG MD [place] 12-25-2021 11:45-0400 Signs/Symptoms Transfusion Reaction DR JAGDEEP LONG MD [place] 12-25-2021 09:45-0400 Signs/Symptoms Transfusion Reaction DR JAGDEEP LONG MD [place] 12-25-2021 09:04-0400 Heart rate 101 /min DR JAGDEEP LONG MD [place] 12-25-2021 08:27-0400 Heart rate 115 /min DR JAGDEEP LONG MD [place] 12-25-2021 03:01-0400 Heart rate 103 /min DR JAGDEEP LONG MD [place] 12-25-2021 00:08-0400 Heart rate 121 /min DR JAGDEEP LONG MD [place] 12-24-2021 23:18-0400 Heart rate 100 /min DR JAGDEEP LONG MD [place] 12-24-2021 20:48-0400 Body height 167.[address] JAGDEEP LONG MD [place] 12-24-2021 20:48-0400 Body weight 81.[address] JAGDEEP LONG MD [place] 12-24-2021 20:48-0400 Body weight 29.12 kg/m2 DR JAGDEEP LONG MD [place] 12-16-2015 08:31-0400 Body height 165.1 cm JESSICA [...] Evaluation and management of inpatient DR JAGDEEP OLNG MD [place] Start: 08-21-2019 Patient encounter procedure SELF SELF Facility:[facility] Start: 03-31-2018 End: 03-31-2018 Patient encounter BRIAN PETIT [facility] Start: 03-30-2018 End: 03-30-2018 Patient encounter BRIAN PETIT [facility] Start: 03-22-2018 End: 03-22-2018 Patient encounter BRIAN PETIT [facility] Start: 03-22-2018 End: 03-22-2018 Patient encounter BRIAN PETIT [facility] Start: 07-20-2017 End: 07-20-2017 Patient encounter BRIAN PEITT [facility] Start: 04-27-2017 End: 04-28-2017 Patient encounter BRIAN PETIT [facility] Start: 04-27-2017 End: 04-28-2017 Patient encounter BRIAN PETIT [facility] Start: 12-16-2015 End: 12-16-2015 Office outpatient [...] End: 04-10-2008 Office outpatient visit 15 minutes Jses George MD Work Phone: [facility] Start: 02-21-2008 End: 02-21-2008 Patient encounter procedure Jess George MD Work Phone: [facility] Start: 02-07-2008 End: 02-07-2008 Patient encounter procedure Jess George MD Work Phone: [facility] Start: 10-11-2007 End: 10-11-2007 Patient encounter procedure Jess Goerge MD Work Phone: [facility] Start: [...] Start: 09-09-2006 End: 09-09-2006 Historical Summary Jess Goerge MD Work Phone: [facility] Ophthalmic examinati on and evaluation Jess George MD Work Phone: [facility] Work Phone: End: 12-16-2015 Patient encounter procedure JESSICA Neymar WRIGHT [facility] Work Phone: Procedures Date Procedure Procedure Detail Performing Clinician Start: 10-02-2015 End: 10-02-2015 Dexa Bone Density Study (HP) Comments: See Note; NOTES: [facility] Imaging Services [address] [place] [address] Verdana 4d Dexa Bone Density Study (HP) MR#: [id number] Acct: [id number] Name: YEYO COFFMAN Rep #: [id number] : 1935 F 80 From: Solo Wilburn MD PCP: Jess George MD Status: REG CLI Study: Dexa Bone Density Study (HP) Date of Exam: 10/02/15 Exam# [id number] Ordering Dr: Jess George MD STUDY: DUAL [...] Solo Wilburn MD at 11:05 EST Tel [phone], Service support [phone], CC: Jess George MD Special Education Instructor: Signed Jess George MD Work Phone: Start: 09-26-2015 End: 09-26-2015 Bilat Scrn Digital AND CAD Comments: See Note; NOTES: [facility] Imaging Services [address] [place] [address] Verdana 4d Bilat Scrn Digital AND CAD MR#: [id number] Acct: [id number] Name: YEYO COFFMAN Rep #: [id number] : 1935 F 80 From: Solo Wilburn MD PCP: Jess George MD Status: REG CLI Study: Bilat Scrn Digital AND CAD Date of Exam: 09/26/15 Exam# [id number] Ordering Dr: Jess George MD MAMMOGRAPHY - [...] delay biopsy of a clinically suspicious abnormality. [id number] Electronically Signed: Solo Wilburn MD at 14:04 EST Tel [phone], Service support [phone], CC: Jess George MD Special Education Instructor: Signed Jess George MD Work Phone: Start: 12-18-2014 End: 12-18-2014 Chest without Contrast Comments: See Note; NOTES: [facility] Imaging Services [address] [place] [address] CAT Scan Report MR#: [id number] Acct: [id number] Name: COFFMANLELA ABBOTTFORTINO Schaefer Rep #: [id number] : 1935 F 79 From: Hunter Torres DO PCP: Jess George MD Status: REG CLI Study: Chest without Contrast Date of Exam: 12/18/14 Exam# [id number] Ordering Dr: Raciel Ribeiro MD STUDY: CT [...] Hunter Torres DO at 12:44 EDT Tel [phone], Service support [phone], CC: Jess George MD; Raciel Ribeiro MD Special Education Instructor: Signed Raciel Ribeiro Work Phone: Start: 04-24-2014 End: 04-25-2014 Chest PA and Lateral Comments: See Note; NOTES: [facility] Imaging Services [address] [place] [address] Radiology Report MR#: [id number] Acct: [id number] Name: YEYO COFFMAN Rep #: [id number] : 1935 F 78 From: Jaya Maldonado PCP: Jess George MD Status: REG CLI Study: Chest PA and Lateral Date of Exam: 04/24/14 Exam# [id number] Ordering Dr: Raciel Ribeiro MD STUDY: X-RAY [...] MD at 1:47 EDT , Service support [phone], CC: Jess George MD; Raciel Ribeiro MD Special Education Instructor: Signed Raciel Ribeiro Work Phone: Start: 12-18-2013 End: 12-19-2013 Chest without Contrast Comments: See Note; NOTES: [facility] Imaging Services [address] [place] [address] CAT Scan Report MR#: [id number] Acct: [id number] Name: YEYO COFFMAN Rep #: [id number] : 1935 F 78 From: Earlene Arana MD PCP: Jess George MD Status: REG CLI Study: Chest without Contrast Date of Exam: 12/18/13 Exam# [id number] Ordering Dr: aRciel Ribeiro MD STUDY: CT CHEST WITHOUT CONTRAST [...] MD at 0:52 EDT , Service support [phone], CC: Jess George MD; Raciel Ribeiro MD Special Education Instructor: Signed Raciel Ribeiro Work Phone: Start: 10-09-2013 End: 10-10-2013 Chest with Contrast Comments: See Note; NOTES: [facility] Imaging Services [address] [place] [address] CAT Scan Report MR#: [id number] Acct: [id number] Name: YEYO COFFMAN Rep #: [id number] : 1935 F 78 From: Solo Wilburn MD PCP: Jess George MD Status: REG CLI Study: Chest with Contrast Date of Exam: 10/09/13 Exam# [id number] Ordering Dr: Jamilah Rushing DO STUDY: CT [...] M.D. at 10:42 EST , Service support [phone], CC: Jess George MD; Jamilah Rushing DO Special Education Instructor: Signed Jamilah Rushing DO Work Phone: Start: 10-06-2013 End: 10-06-2013 Chest PA and Lateral Comments: See Note; NOTES: [facility] Imaging Services [address] [place] [address] Radiology Report MR#: [id number] Acct: [id number] Name: YEYO COFFMAN Rep #: [id number] : 1935 F 78 From: Jeyson Kenney MD PCP: Jess George MD Status: REG CLI Study: Chest PA and Lateral Date of Exam: 10/06/13 Exam# [id number] Ordering Dr: Jamilah Rushing DO STUDY: X-RAY [...] M.D. at 13:51 EST , Service support [phone], CC: Jess George MD; Jamilah Rushing DO Special Education Instructor: Signed Jamilah Rushing DO Work Phone: Start: 07-24-2013 End: 07-24-2013 Knee 4 or More Views Comments: See Note; NOTES: [facility] Imaging Services [address] [place] [address] Radiology Report MR#: [id number] Acct: [id number] Name: YEYO COFFMAN Rep #: [id number] : 1935 F 77 From: Solo Wilburn MD PCP: Jess George MD Status: REG CLI Study: Knee 4 or More Views Date of Exam: 07/24/13 Exam# [id number] Ordering Dr: Jamilah Rushing DO STUDY: X-RAY [...] M.D. at 13:45 EST , Service support [phone], CC: Jess George MD; Jamilah Rushing DO Special Education Instructor: Signed Jamilah Rushing DO Work Phone: Abdominal [...] Phone: Start: 09-16-2015 Lipid panel LIPID PANEL ([id number]) [facility] Work Phone: Immunizations Immunization Date Immunization Notes Care Provider Fa nelson 10-25-2012 varicella zoster imm une globulin Jess George MD Work Phone: [facility] Work Phone: 09-01-2010 pneumococcal polysaccharide vaccine, [address] JAGDEEP LONG MD [place] Payers Date Payer Category Payer Medicare [id number] 1935 Unknown [id number] Unknown Social History Date Type Detail Facility Tobacco smoking status [facility] an [facility] Sex Assigned At Sex [facility] Caffeine Use Caffeine Use [facility] [...] Status [facility] 12-28-2021 Mental Status [facility] 12-27-2021 Mental Status [facility] 12-27-2021 Mental Status [facility] Discharge instructions 12-28-2021 Note Date & [...] Follow these instructions at home: Medicines Take [id number] and prescription medicines only as told by [...] 02/20/2015 Document Revised: 12/29/2019 Document Reviewed: 06/29/2018 [employer] Patient Education 2020 [employer] Follow Up Care 12/24/2021 17:06:39 With:JAGDEEP LONG Address: [address] [address]- [phone] Business (1) When:Within 6 Week(s) Comments:Follow up in clin in 6 weeks. Call office to schedule follow up. [place] Evaluation + Plan note 12-25-2021 Note Date [...] to determine if this is compatible with [facility] MRI machines. Awaiting further information. Patient noted to be on Coumadin, and has received 2 units FFP, INR has decreased from 3.1 here to 1.8; has another 1 unit FFP ordered as Dr. Long has requested to achieve INR less than 1.5. It is noted that patient received half dose of vitamin K at [facility], prior to transfer. INR reportedly resulted after patient had departed for transfer to [place] ED. At that time it was 2.7. [...] Dr. Long to resume. Avoid NSAID use. Rfid Manager physicians have been consulted for medical management [...] MRI Brain w/ + w/o Contrast 02/05/22 [facility] Hospital course Narrative Note Date & Type Note Facility Hospital course Narrative No data available for this section [facility] Instructions Note Date & Type Note Facility [facility] Work Phone: Progress note Note Date & Type Note Facility Progress note No data available for this section [facility] Summary Purpose Family History No Family History Records FoundUnknown Family Member Name Dates Details Brother 1 Comments:[place] and CMP Status:Active Family Members In General Comments:Aunt had breast can cer Status:Active Mother Comments:Anxiety & HBP Status:Active Advance Directives No Advanced Directives Records FoundNo Advanced Directives Records FoundNo Advanced Directives Records FoundNo Advanced Directives Records FoundNo Advanced Directives Records Found Hospital Course Note HNO ID: [id number] Author: Jhonathan He Service: Hospital Medicine Author [...] DATE CREATED AUTHOR AUTHOR'S ORGANIZ ATION 07/13/2019 [facility] DATE CREATED AUTHOR AUTHOR'S ORGANIZ ATION 07/13/2019 [facility] DATE CREATED AUTHOR AUTHOR'S ORGANIZ ATION 08/21/2019 [facility] DATE CREATED AUTHOR AUTHOR'S ORGANIZ ATION 01/20/2022 [facility] (MD) Care Team (unrecognized sect ion and content) Personnel Name: JESS GEORGE MD Address: [address] [place] [address] FOR RECORDS PERTAINING TO PATIENTS WHO [...] BE BASED ON THE PRIMARY CLINICAL RECORDS. [employer] [facility]. provides no warranty or guarantee of the accuracy or completeness of information in this document.
--- NOTE | 2023-10-01 12:53 | STRESSREP_ITS ---
Stress Test Report Pharmacologic myocardial perfusion stress test. 88-year-old lady with a history of atrial fibrillation status post previous ablation. Resting EKG demonstrates atrial fibrillation with a rate of 103 bpm. Resting blood pressure is 152/98 mmHg. 0.4 mg of regadenoson was infused per usual protocol followed by rapid intravenous saline flush injection. Continuous EKG monitoring was performed. The maximum heart rate was 133 bpm which was 99% of max impacted heart rate the maximum workload was 1 metabolic equivalent. At rest there were no ST or T wave changes noted to suggest ischemia and at peak infusion nonspecific ST changes were noted which did not meet the criteria for ischemia. No clinical angina is noted. The final blood pressure was 158/98 mmHg. Myocardial perfusion protocol. 11.3 mCi of technetium 99m sestamibi was injected at rest. 0.4 mg of regadenoson was infused per usual protocol. At peak infusion 34.9 mCi of t echnetium 99m sestamibi was injected stress images were obtained stress and rest images were reconstructed and compared in the short axis vertical long and horizontal long axis. Gated images were also obtained. Perfusion SPECT analysis: Review of the stress images demonstrate normal uptake of tracer noted in all areas of the myocardium. The resting images similar demonstrated normal uptake of tracer noted in all areas of the myocardium. No areas of reversibility are noted to suggest ischemia and no previous infarct is noted. Gated SPECT analysis: The gated ejection fraction is 48%. Conclusion: Normal pharmacologic myocardial perfusion stress test. Mildly reduced ejection fraction. Atrial fibrillation
== END | disposition home or self-care (01) ==
PROVIDERS: PCP Family Medicine; Referring Provider Nurse Practitioner Family; Visit Provider Nurse Practitioner Family
DX: I25.10 Atherosclerotic heart disease of native coronary artery without angina pectoris (principal); I48.0 Paroxysmal atrial fibrillation; R93.1 Abnormal findings on diagnostic imaging of heart and coronary circulation; R06.00 Dyspnea, unspecified; Z86.79 Personal history of other diseases of the circulatory system; E78.5 Hyperlipidemia, unspecified
CPT/HCPCS: 78452; 93017; A9500; A4216; J2785

== ENCOUNTER → 2023-12-28 | Outpatient (CLI) | payer MEDICARE, SELFPAY ==
[2023-12-28 12:04] LABS: Anion Gap 6 (5-15); BUN 20 mg/dL (7-18); BUN/Creat Ratio 21.1 RATIO (10-20); Calcium,Total 9.5 mg/dL (8.5-10.1); Chloride 106 mmol/L (98-107); Creatinine, Serum 0.95 mg/dL (0.55-1.02); EST Glomerular Filtration Rate 59 mL/min (>60); Est Glom Filt Rate - Afr Amer 72 mL/min (>60); Glucose 130 mg/dL (74-106); Potassium 3.9 mmol/L (3.5-5.1); Sodium Level 140 mmol/L (136-145)
== END | disposition home or self-care (01) ==
PROVIDERS: PCP Family Medicine; Referring Provider Physician Assistant Medical; Visit Provider Physician Assistant Medical
DX: I42.9 Cardiomyopathy, unspecified (principal)
CPT/HCPCS: 36415; 80048

== ENCOUNTER 2024-01-14 19:41 | Emergency (ER) | payer MEDICARE, SELFPAY ==
[2024-01-14 19:42] VITALS: BP 170/102; PULSE 86; RESP 16; O2SAT 97
--- NOTE | 2024-01-14 19:42 | EKG12_ITS ---
Test Reason : STROKE Blood Pressure : / mmHG Vent. Rate : 091 BPM Atrial Rate : 000 BPM P-R Int : 000 ms QRS Dur : 122 ms QT Int : 414 ms P-R-T Axes : 000 010 -66 degrees QTc Int : 509 ms Atrial fibrillation Septal infarct (cited on or before 05-AUG-2023) Abnormal ECG Confirmed by BRADEN SANCHEZ, TORIE ([id number]), editor city FLORES LARES ([id number]) on 01/17/2024 8:50:45 AM Referred By: Confirmed By:TORIE FELICIANO MD
--- NOTE | 2024-01-14 19:42 | CT_ITS ---
INDICATION: Neuro deficit, acute, stroke suspected EXAMINATION: CT BRAIN - CT Head Stroke Protocol W/O Contrast Injection TECHNIQUE: Multiple axial images were obtained of the head without intravenous contrast. A radiation dose optimization technique was used for this scan. IV Contrast dosage and agent: None. Radiation Dose (provided by facility) CTDIvol (NA ) mGy, DLP ( NA) mGy-cm COMPARISON: Not available FINDINGS: HEMISPHERES: 1. The cerebral parenchyma, ventricular system, subarachnoid spaces have normal configuration and density. There is a normal gyral pattern. There is normal kimball/white differentiation. No midline shift.. 2. Mild involutional change, extensive chronic deep white matter disease noted. There is an area of remote infarct involving the RIGHT owen radiata extending into the caudate. 3. There is an additional area of loss of parenchymal density along the posterior curvature of the RIGHT occipital lobe. This is consistent with an area of infarct of indeterminate age, subacute to chronic infarct is consideration however no hemorrhage noted. 4. No evidence of mass, hemorrhage, or acute territorial infarct. CEREBELLUM - BRAINSTEM: The cerebellum, brainstem, basilar and suprasellar cisterns have normal appearance. No Chiari malformation. PITUITARY: Infundibulum and pituitary have normal configuration. Midline structures appear normal. VESSELS: 1. Extensive carotid vascular calcifications. 2. No hyperdense vascular signs noted.. ORBITS AND PARANASAL SINUSES: 1. Normal appearance of the bony orbits. Normal appearance of the globes and retrobulbar soft tissues.. 2. Paranasal sinuses are clear. BONY ELEMENTS: Bony elements of the cranial vault, facial skeleton and skull base have normal appearance. SCALP AND SOFT TISSUES: Normal appearance of the soft tissues of the scalp and the visualized face OTHER: None CT/STROKE Brain/Head without Cont IMPRESSION: 1. 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 2. Area of diminished density along posterior curvature the RIGHT occipital pole, likely due to remote infarct however findings are indeterminate age. This however corresponds to a reported area of remote hemorrhage and likely represents an area of gliosis and scar. Previous imaging at that facility is not available at this time for correlation. 3. No mass, hemorrhage, or acute territorial infarct. 4. No radiographically significant sinus disease. N.B. : The above Results were Read Back by Kj Lama MD to Bill Kern MD, and understanding confirmed on 01/14/2024 20:01:07 (ET). Electronically Signed: Kj Lama MD at 20:02 EDT ,
--- NOTE | 2024-01-14 19:45 | CT_ITS ---
We are attempting to reach an attending provider to discuss findings. An addendum with communication details will be sent when the communication is complete. INDICATION: STROKE EXAMINATION: CTA HEAD - CTA Head and Neck Stroke W/ Contrast (and W/O if performed) TECHNIQUE: [place] [facility] [place]/head CT angiogram protocol was performed following IV contrast. 3D reconstructions were reviewed. A radiation dose optimization technique was used for this scan. IV Contrast dosage and agent: 100 mL Isovue-370 Radiation Dose (provided by facility) CTDIvol (26.85 ) mGy, DLP ( 600.87) mGy-cm COMPARISON: None. FINDINGS: CTA [place]: CAROTID VESSELS: Moderate to extensive cavernous carotid vascular calcifications without stenosis occlusion or aneurysmal dilatation. No filling defects noted. ANTERIOR CEREBRAL ARTERIES: Normal right A1 segments of the anterior cerebral artery. Normal left A1 segments of the anterior cerebral artery. Normal intact anterior communicating artery (ACOM). Normal bilateral A2 segments of the anterior cerebral arteries. MIDDLE CEREBRAL ARTERIES: Normal right M1 and M2 segments of the middle cerebral arteries, with a normal M1 bifurcation. Normal appearance the LEFT M1 segment to level of bifurcation. There is abrupt cut off of the LEFT M2 (series 2: Image 385). POSTERIOR COMMUNICATING ARTERIES: There is non-visualization of the right posterior communicating artery (PCOM). Normal left posterior communicating artery (PCOM). VERTEBRAL BASILAR SYSTEM: Dominant LEFT vertebral artery. There is a focal stenosis the V4 segment of the RIGHT vertebral artery with slow flow without complete occlusion. Mild diffuse vascular disease also noted without occlusion. Normal basilar artery with a normal basilar bifurcation. The visualized bilateral superior cerebellar (SCA) arteries are normal. POSTERIOR CEREBRAL ARTERIES Normal bilateral P1, P2 and visualized P3 segments of the posterior cerebral arteries. DURAL SINUSES: Normal, no filling defects noted CT HEAD: Diffuse involutional changes, remote area of encephalomalacic in the RIGHT occipital lobe which is stable in comparison to remote examination currently available dated 07/28/2023. RIGHT owen radiata infarct also noted. CTA Neck: TECHNIQUE: CTA examination of the neck obtained with standard protocol including axial postcontrast imaging with additional planar and three-dimensional reconstructions. Aortic arch: [Normal appearance of the aortic arch and origin the great vessels.] Extensive vascular calcifications without dissection or vascular occlusion involving the aortic arch and origin the great vessels. Right carotid system: There is normal appearance RIGHT common carotid, RIGHT internal carotid arteries, and the bifurcation. Normal appearance of the external carotid circulation on the RIGHT. Moderate soft and calcified plaque at the RIGHT carotid bulb without stenosis. Findings consistent with mild (less than 50%) narrowing. Left carotid system: There is normal appearance of the LEFT common carotid, LEFT internal carotid, and the bifurcation. There is normal appearance of the LEFT external carotid circulation extensive vascular calcifications involving the carotid bulb without stenosis. Findings are consistent with a mild (less than 50% narrowing. Vertebral arteries: There is a dominant LEFT vertebral artery. Multilevel calcifications involving the RIGHT vertebral artery with multiple focal areas of mild narrowing. Airway and soft tissues of the neck: There is normal appearance of the musculofascial planes of suprahyoid and infrahyoid neck. Normal appearance of the visualized airway. Normal appearance the visualized thyroid without masses or nodules noted. Cervical spine: Normal appearance of bony elements of the cervical spine. No focal stenosis or occlusion involving the cervical spinal canal. CT/STROKE CTA Head AND Neck W/Con IMPRESSION: 1. Extensive vascular calcifications involving the intracranial circulation. 2. 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 3. Moderate narrowing of the V4 segment of the RIGHT vertebral artery without occlusion. 4. Diffuse bilateral soft and calcified plaque at the level of the carotid bulbs without hemodynamically significant stenosis. 5. Multilevel mild to moderate narrowing of the small RIGHT vertebral artery. There is a patent dominant LEFT vertebral artery. Occlusion Electronically Signed: Kj Lama MD at 20:36 EDT ,
--- NOTE | 2024-01-14 19:52 | ED.VIS.STROK ---
HPI History of Present Illness Chief Complaint: Stroke Alert Detail of Chief Complaint: Unresponsiveness Informant: family and EMS Onset/Context/Timing Onset: Hours (15 to 30 minutes prior to arrival) Context: Sudden Onset Timing: Continuous Onset: Patient unresponsive. Unable to look to the right. Nonverbal Current Severity: Severe Maximum Severity: Severe Narrative Narrative: Patient is an 88-year-old woman. Patient was seen December 2021 for a right occipital hemorrhage that was determined to be due to cerebral amyloid angiopathy. She was taken off her anticoagulant. She was on anticoagulant for A-fib/flutter. No other history is available. It is determined that patient does have concern for stroke. I was not aware of the hemorrhage or the fact that I cared for her 2 years ago until I reviewed prior records since she is nonverbal. Family stated she was having trouble getting out of the chair and then deteriorated. 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) Atrial flutter Essential hypertension Status post placement of implantable loop recorder History of TIA (transient ischemic attack) Syncope Paroxysmal atrial fibrillation Atherosclerotic heart disease of kaw coronary artery without angina pectoris History of supraventricular tachycardia unusual tiredness Shortness of breath HLD (hyperlipidemia) Home Medications ?Medication ?Instructions ?Recorded ?Last Taken ?Type calcium carbonate 600 mg-vitamin 1 ea PO DAILY SUPPLEMENT 09/17/16 08/24/23 History D3 5 mcg (200 unit) tablet ezetimibe 10 mg tablet 10 mg PO DAILY COLESTEROL #90 tabs 11/09/22 08/24/23 Rx losartan 25 mg tablet 25 mg PO BID HIGH BLOOD PRESSURE 06/22/23 08/24/23 Rx #180 tabs metoprolol tartrate 50 mg tablet 50 mg PO BID HEART RATE/RHYTHM #60 10/06/23 Unknown Rx tabs furosemide 20 mg tablet 20 mg PO DAILY FLUID RETENTION #90 12/22/23 Unknown Rx tabs spironolactone 25 mg tablet 25 mg PO DAILY #90 tabs 12/22/23 Unknown Rx Allergy/AdvReac Type Severity Reaction Status Date / Time latex Allergy Rash Verified 12/22/23 15:40 atorvastatin AdvReac Severe elevated Verified 12/22/23 15:40 LFT's codeine AdvReac Severe Syncope Verified 12/22/23 15:40 Sulfa (Sulfonamide AdvReac Severe Became Verified 12/22/23 15:40 Antibiotics) cold and clammy adhesive tape AdvReac Intermediate Rash Verified 12/22/23 15:40 gemfibrozil AdvReac Intermediate Myalgias Verified 12/22/23 15:40 levofloxacin AdvReac Intermediate restless Verified 12/22/23 15:40 leg movements morphine AdvReac Vomiting Verified 12/22/23 15:40 oxycodone AdvReac Vomiting Verified 12/22/23 15:40 tramadol AdvReac Other Verified 12/22/23 15:40 Family History Father Diabetes Heart disease Brother Heart disease Mother Heart disease Surgical History History of radiofrequency ablation procedure for cardiac arrhythmia (~2003) History of hip replacement History of knee replacement Social History household members: none Smoking Status: Never smoker second hand exposure: No alcohol intake: never substance use type: does not use what type of physical activity do you participate in: none denis/baptism: Gnosticism seatbelt use: always ROS ROS ED Review of Systems ROS Unobtainable: due to mental status and other Details: GCS is 6 EXAM Physical Exam Const Vital Signs: 01/14/24 19:42 01/14/24 19:42 01/14/24 19:54 Temperature 96.5 F L Temperature Source Tympanic Pulse Rate 86 82 Respiratory Rate 16 23 H Blood Pressure 170/102 H 170/102 H Blood Pressure Mean 124 124 Pulse Ox 97 96 Oxygen Delivery Method Room Air Room Air Room Air 01/14/24 20:00 01/14/24 20:12 Temperature 96.7 F L Temperature Source Tympanic Pulse Rate 87 83 Respiratory Rate 29 H 22 H Blood Pressure 193/86 H 173/105 H Blood Pressure Mean 121 127 Pulse Ox 96 98 Oxygen Delivery Method Room Air Room Air Positive well nourished and well developed General Appearance ED: well developed and NAD HEENT Reports moist mucous membranes atraumatic Eyes PERRL Eyes Narrative: Is able to look to the left cannot go past midpoint to the or to the right. General Eye ED: Negative for pale conjunctiva or scleral icterus Neck no lymphadenopathy, supple and no JVD Chest Wall inspection of chest normal and palpation of chest normal Resp normal respiratory effort and clear to auscultation bilaterally Cardio no murmurs Rhythm: abnormal rhythm irregularly irregular GI normal to inspection, nondistended, normoactive bowel sounds, soft to palpation, non-tender, non-distended and no masses Extremity normal to inspection Neuro No oriented x3 and No no sensory deficits noted Neuro Narrative: There is no response to needlestick to start IV line. Savita Coma Scale: document GCS findings Spontaneous None None 6 Sensorium / Orientation: Negative for alert Speech: Negative for speech normal Gait (Neuro): Negative for normal gait Psych Psych Narrative: Unable to determine Skin General Skin Exam: Negative for jaundice Lesions: no lesions Rashes: no rashes NIHSS NIHSS Initial: 1a Level of Consciousness: 3 1b LOC Questions (Score 2 if aphasic/stupor): 2 1c LOC Commands (Only score 1st attempt): 2 2 Best Gaze (If aphasic, use reflexive mvmts.): 1 3 Visual: 3 4 Facial Palsy: 1 5 Motor Arm Right (UN = amputation/fusion): 3 5 Motor Arm Left: 3 6 Motor Leg Right: 3 6 Motor Leg Left: 4 7 Limb ataxia (Only + if out of proportion): UN 8 Sensory (Aphasia/stupor=0 or 1, coma=2): 2 9 Best Language: 3 10 Dysarthria (mute, coma=2, intubated=UN): UN 11 Extinction and Inattention (only scored if +): 1 Total Score: 31 MDM MDM MDM Narrative Medical decision making narrative: Spoke with the neurologist at [facility]. He believes was a clot in the right M2 vessel. With her staring off this may represent seizure Status. History & Record Review Additional record(s) reviewed:: Prior inpatient record (MRI report from [facility] December 2021 revealed a right parasagittal parietal early subacute intracranial hemorrhage without evidence of underlying neoplasm. Hemorrhage size is unchanged from CT when she presented. Hemorrhage is likely secondary to cerebral amyloid angiopathy, CAA.) Lab Data Attestation: I reviewed the patient's lab results. Lab results narrative: CBC is unremarkable. Labs: Laboratory Results - last 24 hr 01/14/24 20:00 WBC 9.0 RBC 4.02 L Hgb 12.6 Hct 38.3 MCV 95.3 MCH 31.3 MCHC 32.9 RDW Std Deviation 44.3 H RDW Coeff of [place] 12.6 Plt Count 163 MPV 9.4 Immature Gran % (Auto) 0.200 Neut % (Auto) 41.9 L Lymph % (Auto) 40.5 [place] % (Auto) 13.1 H Eos % (Auto) 3.4 Baso % (Auto) 0.9 Absolute Neuts (auto) 3.8 Absolute Lymphs (auto) 3.65 Nucleated RBC % 0 PT 14.0 INR 1.1 APTT 27.3 Radiography Chest X-Ray - ED: 1 View and Read by ED Physician (Independent reviewed interpreted by me at 0828. Borderline cardiomegaly. Cardiac silhouette is normal. Lung parenchyma reveals minimal chronic changes. [place] is unremarkable. Osseous trucks unremarkable. There is no widening the mediastinum.) Diagnostic Testing: Clinical Impression(s) from Imaging Studies Brain CT 01/14/24 19:42 IMPRESSION: 1. 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 2. Area of diminished density along posterior curvature the RIGHT occipital pole, likely due to remote infarct however findings are indeterminate age. This however corresponds to a reported area of remote hemorrhage and likely represents an area of gliosis and scar. Previous imaging at that facility is not available at this time for correlation. 3. No mass, hemorrhage, or acute territorial infarct. 4. No radiographically significant sinus disease. N.B. : The above Results were Read Back by Kj Lama MD to Bill Kern MD, and understanding confirmed on 01/14/2024 20:01:07 (ET). Electronically Signed: Kj Lama MD at 20:02 EDT , ADDENDUM: 01/14/242008 IMPRESSION: 1. 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 2. Area of diminished density along posterior curvature the RIGHT occipital pole, likely due to remote infarct however findings are indeterminate age. This however corresponds to a reported area of remote hemorrhage and likely represents an area of gliosis and scar. Previous imaging at that facility is not available at this time for correlation. 3. No mass, hemorrhage, or acute territorial infarct. 4. No radiographically significant sinus disease. N.B. : The above Results were Read Back by Kj Lama MD to Bill Kern MD, and understanding confirmed on 01/14/2024 20:01:07 (ET). Electronically Signed: Kj Lama MD at 20:02 EDT , Rhythm Strip Rhythm Strip: A-fib Rate: 78 Ectopy: PVC(s) (Or aberrant beat) Management Discussion w/another healthcare provider: Staff Appraiser and Radiologist (CT of the head without contrast reveals no acute findings. Neurologist believes there is a lesion in the M2 vessel.) Treatment and Re-Evaluation Narrative: Since there is concern for seizure activity will load with 60 mg/kg of Keppra. Stroke Documentation Questions Stroke Team Activated: Yes Reviewed Inclusion/Exclusion criteria: Yes IV Thrombolytic Administered: No (History of cerebral amyloid angiopathy with hemorrhage) Critical Care Time Critical Care Time: Yes Critical care time (excluding procedures): 30-74 minutes (32), Including time spent: (History, physical, documentation, review of prior records and prior images. 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, [place] coma scale score 3-8, at arrival to emergency department, Atherosclerotic heart disease of kaw coronary artery without angina pectoris, Essential hypertension, Cerebral amyloid angiopathy, Atrial fibrillation Prescriptions: No Action losartan 25 mg tablet 25 mg PO BID Qty: 180 3RF furosemide 20 mg tablet 20 mg PO DAILY Qty: 90 3RF spironolactone 25 mg tablet 25 mg PO DAILY Qty: 90 3RF metoprolol tartrate 50 mg tablet 50 mg PO BID Qty: 60 11RF calcium carbonate-vitamin D3 1 EACH tablet 1 ea PO DAILY ezetimibe 10 mg tablet 10 mg PO DAILY Qty: 90 3RF Primary Care Provider: Robyn Serrato Referrals: Robyn Serrato DO [Primary Care Provider] - Print Language: Uzbek Disposition Disposition: Acute Care Hospital Discharge Location: [facility]
[2024-01-14 19:54] VITALS: BP 170/102; PULSE 82; RESP 23; TEMP 35.8; O2SAT 96; BMI 24.9
[2024-01-14 20:00] VITALS: BP 193/86; PULSE 87; RESP 29; TEMP 35.9; O2SAT 96
[2024-01-14 20:05] LABS: Absolute Lymphocyte Count 3.65 X10^3/uL (0.83-4.51); Absolute Neutrophil Count 3.8 X10^3/uL (2.0-7.7); Basophil# 0.08 X10^3/uL; Basophil% 0.9 % (0-1); Eosinophil# 0.31 X10^3/uL; Eosinophils% 3.4 % (0-5); Hematocrit 38.3 % (37-47); Hemoglobin 12.6 g/dL (12.0-15.0); Lymphocyte # 3.65 X10^3/ul (0.83-4.51); Lymphocyte % 40.5 % (19-41); Mean Corp Hgb Conc 32.9 g/dL (32-36); Mean Corpuscular Hgb 31.3 pg (27.0-32.0); Mean Corpuscular Volume 95.3 fL (81-99); Mean Platelet Vol. 9.4 fl (6.2-12.0); Monocyte# 1.18 X10^3/uL; Monocyte% 13.1 % (0-10); NRBC Flagged by Analyzer 0 % (0-5); Neutrophil # 3.77 X10^3/uL (2.7-7.7); Neutrophil % 41.9 % (47-70); Platelet Count 163 K/mm3 (150-450); RBC Distribution Width CV 12.6 % (11.6-14.6); RBC Distribution Width SD 44.3 fl (35.1-43.9); Red Blood Count 4.02 M/mm3 (4.2-5.4)
[2024-01-14 20:12] VITALS: BP 173/105; PULSE 83; RESP 22; O2SAT 98
[2024-01-14 20:16] LABS: International Normalized Ratio 1.1
[2024-01-14 20:17] LABS: Partial Thromboplast Time 27.3 Seconds (24.1-36.2)
--- NOTE | 2024-01-14 20:23 | RAD_ITS ---
INDICATION: Neuro deficit, acute, stroke suspected EXAMINATION/TECHNIQUE: X-RAY - XR Chest 1 View COMPARISON: 08/24/2023 FINDINGS: LIFE-SUPPORT AND LINES: 1. No life-support noted. 2. Cardiac loop monitor is noted. HEART AND VESSELS: Cardiac silhouette is upper limit of normal without change. Extensive mitral valve calcifications noted. No evidence of jessica congestive failure. LUNGS AND PLEURAL SPACES: Shallow inspiration crowding of bronchovascular markings, no focal infiltrate or consolidation. No pulmonary mass is noted. MEDIASTINUM AND HILAR REGIONS: No masses adenopathy noted. No areas of calcification. Visualized upper airway is normal in position. BONY ELEMENTS: Healed RIGHT rib fractures are noted. No acute bony abnormality noted. Diffuse lower thoracic scoliosis. RAD/Chest 1 View IMPRESSION: 1. Stable borderline cardiomegaly, no evidence of congestive failure. 2. No focal infiltrate or consolidation. Shallow inspiration crowding of bronchovascular markings. 3. Cardiac loop monitor is again noted. Mitral annulus calcifications are prominent. 4. Thoracolumbar scoliosis. Electronically Signed: Kj Lama MD at 20:45 EDT ,
[2024-01-14 20:30] VITALS: BP 177/120; PULSE 85; RESP 21; O2SAT 97
[2024-01-14] MEDS: LEVETIRACETAM IV (20:38)
[2024-01-14] MEDS: NORMAL SALINE 0.9% IV (20:38)
[2024-01-14 20:48] VITALS: BMI 24.9
[2024-01-14 20:49] VITALS: BP 172/103; PULSE 70; RESP 16; TEMP 36.7; O2SAT 97
[2024-01-14 20:52] LABS: Anion Gap 6 (5-15); BUN 26 mg/dL (7-18); BUN/Creat Ratio 27.1 RATIO (10-20); Calcium,Total 8.6 mg/dL (8.5-10.1); Chloride 106 mmol/L (98-107); Creatinine, Serum 0.96 mg/dL (0.55-1.02); EST Glomerular Filtration Rate 59 mL/min (>60); Est Glom Filt Rate - Afr Amer 71 mL/min (>60); Estimated Creatinine Clearance 39.38 ml/min; Glucose 124 mg/dL (74-106); Potassium 3.4 mmol/L (3.5-5.1); Sodium Level 139 mmol/L (136-145); Troponin-I HS 5 pg/mL (3.0-54.0)
== END 2024-01-14 20:51 | disposition short-term general hospital (02) ==
PROVIDERS: Emergency Provider Emergency Medicine; PCP Family Medicine; Visit Provider Emergency Medicine
DX: I63.312 Cerebral infarction due to thrombosis of left middle cerebral artery (principal); I48.91 Unspecified atrial fibrillation; R47.1 Dysarthria and anarthria; I10 Essential (primary) hypertension; I25.10 Atherosclerotic heart disease of native coronary artery without angina pectoris; R27.0 Ataxia, unspecified; G51.0 Bell's palsy; I68.0 Cerebral amyloid angiopathy; E78.5 Hyperlipidemia, unspecified; Z86.73 Personal history of transient ischemic attack (TIA), and cerebral infarction without residual deficits
CPT/HCPCS: 70450; 70496; 70498; 71045; 80048; 84484; 85025; 85610; 85730; 93005; 99285; J7050; Q9967; A4216